=== PATIENT | female | born 1980 | race Caucasian/White ===

== ENCOUNTER 2016-11-23 03:12 | Inpatient (IN) | payer OTHER ==
[~2016-11-23] VITALS: Ht 167.6 cm; Wt 129.1 kg
[~2016-11-23 03:12] MED LIST: OSLT75C PO
[2016-11-23] MEDS ORDERED: KETOROLAC 30 MG INJ IV STA (03:55)
--- NOTE | 2016-11-23 04:36 | ERD ---
ER Documentation Chief Complaint Date/Time DATE: 11/23/16 TIME: 04:34 Chief Complaint r eye lid swelling HPI 35-year-old presents here in emergency department for complaints of right upper eyelid redness and swelling started today. Started as a small pimple on the upper eyelid, it became more red and swollen, patient states she has had a pimple longtime ago, today just became more red and swollen, patient's complaining of pain on affected area, throbbing pain, secretions, is worse upon touching the area. Patient did not take any medications to help with symptoms. Patient denies any vision changes. Patient denies any trauma in the eye. ROS All systems reviewed and are negative except as per history of present illness. Medications Home Meds Active Scripts Ibuprofen* (Motrin*) 600 Mg Tab, 600 MG PO Q6H Y for PAIN AND OR ELEVATED TEMP, #30 TAB Prov:SESAR RICHARDSON NP 11/23/16 Erythromycin* (Erythromycin* Ophthalmic) 1 Applic Oint, 1 APPLIC RIGHT EYE QID for 7 Days Prov:SESAR RICHARDSON NP 11/23/16 Doxycycline Hyclate* (Doxycycline Hyclate*) 100 Mg Tablet.dr, 100 MG PO BID for 10 Days, TAB Prov:SESAR RICHARDSON NP 11/23/16 Hydrocodone/Acetaminophen ([place] 5-325 Tablet) 1 Each Tablet, 1 TAB PO Q6H Y for SEVERE PAIN LEVEL 7-10, #20 TAB Prov:SESAR RICHARDSON NP 11/23/16 Oseltamivir Phosphate* (Tamiflu*) 75 Mg Capsule, 75 MG PO BID for 5 Days, CAP Prov:YASMEEN WHITTAKER MD 11/24/15 Allergies Allergies: Coded Allergies: No Known Allergy (Unverified , 11/24/15) PMhx/Soc Medical and Surgical Hx: pt denies Medical Hx, pt denies Surgical Hx Hx Alcohol Use: No Hx Substance Use: No Hx Tobacco Use: No FmHx Family History: No coronary disease, No diabetes, No other Physical Exam Vitals Vital Signs Date Time Temp Pulse Resp B/P Pulse Ox O2 Delivery O2 Flow Rate FiO2 11/23/16 03:15 98.9 78 18 149/96 96 Physical Exam GENERAL: The patient is well developed and appropriate for usual state of health, in no apparent distress. HEENT: Atraumatic. Bilateral eyes are PERRL EOM intact. Right upper eyelid noted to be erythematous and swollen, tenderness on palpation noted. Patient's redness and swelling of the right upper eyelid extends upper eyelid area. Ears: Normal tympanic membrane, no erythema or bulging. No ear canal swelling. No ear discharge. Nose: normal nasal turbinates, no erythema or swelling. Normal nasal discharge. Throat: oropharynx clear. No tonsillar swelling or tonsillar exudates. No lymphadenopathy. CHEST: Clear to auscultation bilaterally. There are no rales, wheezes or rhonchi. HEART: Regular rate and rhythm. No murmurs, clicks, rubs or gallops. No S3 or S4. ABDOMEN: Soft, nontender and nondistended. Good bowel sounds. No rebound or guarding. No gross peritonitis. No gross organomegaly or masses. No Neal sign or McBurney point tenderness. BACK: No midline or flank tenderness. EXTREMITIES: Equal pulses bilaterally. There is no peripheral clubbing, cyanosis or edema. No focal swelling or erythema. Full range of motion. Grossly neurovascularly intact. NEURO: Alert and oriented. Cranial nerves 2-12 intact. Motor strength in all 4 extremities with 5/5 strength. Sensation grossly intact. Normal speech and gait. SKIN: There is no apparent rash or petechia. The skin is warm and dry. HEMATOLOGIC AND LYMPHATIC: There is no evidence of excessive bruising or lymphedema. No gross cervical, axillary, or inguinal lymphadenopathy. Result Diagram: 11/23/16 0502 Results 24 hrs Laboratory Tests Test 11/23/16 05:02 Anion Gap 16 Blood Urea Nitrogen 10mg/dl Calcium Level 9.0mg/dl Carbon Dioxide Level 25mmol/L Chloride Level 105mmol/L Creatinine 0.54mg/dl Glucose Level 97mg/dl Potassium Level 3.8mmol/L Sodium Level 142mmol/L Current Medications Medications (Trade) Dose Ordered Sig/Octavio Route PRN Reason Start Time Stop Time Status Last Admin Dose Admin Ketorolac Tromethamine 30 mg 30 mg ONCE STAT IV 11/23/16 03:55 11/23/16 03:56 DC 11/23/16 04:56 Sodium Chloride (NS) 100 ml @ [facility] ONCE .ROUTE 2/14/17 05:45 11/23/16 05:46 DC Iohexol (Omnipaque 300mg/ ml) 150 ml [facility] ONCE .ROUTE 11/23/16 05:46 11/23/16 05:47 DC Patient was given medication for pain here in emergency department, after treatment, patient verbalized feeling much better. Patient's pain is improved. Procedures/MDM Medical decision making: Patient's symptoms most likely consistent with right upper eyelid blepharitis, pending CT scan of the orbits at this time to rule periorbital abscess, orbital cellulits. Will sign out to Cassy Moscoso NP. Rx: Doxycycline, Erythromycin, Ibuprofen and [place] for D/c if negative Ct scan. SESAR RICHARDSON NP Nov 23, 2016 04:36
[2016-11-23 05:33] LABS: POTASSIUM 3.8 mmol/L (3.5-5.1)
[2016-11-23 05:36] LABS: CREATININE 0.54 mg/dl (0.44-1.00)
[2016-11-23] MEDS ORDERED: IBUP-1542 PO (05:36)
[2016-11-23] MEDS ORDERED: DOXY100T20 PO (05:36)
[2016-11-23] MEDS ORDERED: HYDR-906 PO (05:36)
[2016-11-23] MEDS ORDERED: ERYTOPOI RIGHT EYE (05:36)
[2016-11-23] MEDS ORDERED: SOD CHLORIDE 0.9% 100 ML ONE (05:45)
[2016-11-23] MEDS ORDERED: IOHEXOL 300MG/ML 150 ML BTL ONE (05:46)
--- NOTE | 2016-11-23 06:30 | RADRPT ---
PROCEDURE: CT orbits with contrast CLINICAL INDICATION: right eyelid swelling, rule out orbital cellulitis, TECHNIQUE: Spiral CT images through the orbits after administration of 1 and ccs of Omnipaque-300 intravenous contrast. Multiplanar reconstructions. The CTDIvol is 53.43 mGy and the DLP is a 774.8 7 mGy-cm. One or more of the following dose reduction techniques were used: automated exposure cont rol, adjustment of the mA and/or kV according to patient size, or use of iterative reconstruction te chnique. COMPARISON: None. FINDINGS: There is right periorbital soft tissue swelling. This is more focal medially where a tiny rim enhan cing fluid collection is seen adjacent to the medial sclera which measures 4 x 5 mm. No other focal fluid collection is seen. The inflammatory change involves the distal aspect of the medial rectus muscle and extends medially to the lamina papyracea. No retro-orbital cellulitis is seen. The glob es appear intact. The optic nerves and extraocular musculature is otherwise unremarkable. Calcific ations of the left tonsil are seen. The visualized intracranial structures are unremarkable. No todd ny erosive change is seen. There is minimal mucoperiosteal thickening of the maxillary sinuses. Th e paranasal sinuses and mastoids are otherwise clear. IMPRESSION: Right orbital cellulitis with tiny focal abscess along the medial aspect of the sclera. Inflammator y change extends medially to the lamina papyracea. RPTAT: HLBE Physician Philippe Date Time Electronically viewed and signed by Evangelina Arriola Physician on 11/23/2016 06:30 LE/
[2016-11-23] MEDS ORDERED: PIPER-TAZO 3.375 GM IV (PMX) 100 ML IVPB STA (06:41)
[2016-11-23] MEDS ORDERED: VANCOMYCIN 1 GM (PMX) 250 ML IVPB ONE (07:00)
[2016-11-23 07:54] LABS: BASOPHIL # 0.1 10^3/ul (0.0-0.1); BASOPHILS % 0.6 % (0.0-2.0); EOSINOPHILS # 0.2 10^3/ul (0.0-0.5); EOSINOPHILS % 1.4 % (0.0-7.0); HEMATOCRIT 40.3 % (37.0-47.0); LYMPHOCYTES # 3.1 10^3/ul (0.8-2.9); LYMPHOCYTES % 26.5 % (15.0-51.0); MEAN CORPUSCULAR HEMOGLOBIN 30.2 pg (29.0-33.0); MEAN CORPUSCULAR HGB CONC 34.8 g/dl (32.0-37.0); MEAN CORPUSCULAR VOLUME 86.7 fl (82.0-101.0); MEAN PLATELET VOLUME 8.4 fl (7.4-10.4); MONOCYTE # 0.9 10^3/ul (0.3-0.9); MONOCYTES % 7.6 % (0.0-11.0); NEUTROPHIL # 7.4 10^3/ul (1.6-7.5); NEUTROPHILS % 63.9 % (39.0-77.0); PLATELET COUNT 266 10^3/UL (140-440); RED BLOOD COUNT 4.65 10^6/ul (4.20-5.40); RED CELL DISTRIBUTION WIDTH 13.6 % (11.5-14.5); UNCORRECTED WBC 11.5 10^3/ul (4.8-10.8); WHITE BLOOD COUNT 11.5 10^3/ul (4.8-10.8)
[2016-11-23 07:56] LABS: CONDITION 1; INR 1.05; PROTIME 13.7 Sec (12.2-14.2); PT RATIO 1.1
[2016-11-23 07:57] LABS: PARTIAL THROMBOPLASTIN TIME 29.7 Sec (25.0-35.0)
[2016-11-23 08:00] VITALS: TEMP 98
--- NOTE | 2016-11-23 08:22 | QN ---
Documentation Comment I have seen and evaluated the patient along with the PA and/or UNDER CUTTER provider. I agree with the evaluation and plan of care. Please see their documentation for full ER course and evaluation. In short: The patient was endorsed to me from the PA given a CT finding that is concerning for orbital cellulitis with abscess. The patient describes several days of a stye on her eye. Over the past 24 hours she has had significant pain and swelling to the upper eyelid. The patient denies any vision changes, no pain with extraocular movements. On exam the patient has significant swelling of the upper eyelid with focal tenderness along the periorbital rim. The patient has mild consensual photophobia but no afferent pupillary defect. She has full active range of motion of the extraocular muscles of the right eye. She has no proptosis. CT FINDINGS: There is right periorbital soft tissue swelling. This is more focal medially where a tiny rim enhancing fluid collection is seen adjacent to the medial sclera which measures 4 x 5 mm. No other focal fluid collection is seen. The inflammatory change involves the distal aspect of the medial rectus muscle and extends medially to the lamina papyracea. No retro-orbital cellulitis is seen. The globes appear intact. The optic nerves and extraocular musculature is otherwise unremarkable. Calcifications of the left tonsil are seen. The visualized intracranial structures are unremarkable. No bony erosive change is seen. There is minimal mucoperiosteal thickening of the maxillary sinuses. The paranasal sinuses and mastoids are otherwise clear. IMPRESSION: Right orbital cellulitis with tiny focal abscess along the medial aspect of the sclera. Inflammatory change extends medially to the lamina papyracea. RPTAT: HLBE I was able speak to Dr. Ovalles, research nurse. He states that since the abscess is located and isolated to the orbit this is more of an ophthalmologic process. I do not have an senior software engineer on staff. For this reason the patient will require transfer. I am not sure that the patient necessarily requires emergent surgery however given focal abscess she at least needs an ophthalmology consult and needs to be at a facility that can perform drainage if needed. Blood cultures have been taken and the patient was given broad-spectrum antibiotics to cover staph and strep. The patient was given vancomycin and Zosyn. She continues to be well-appearing and her pain is well controlled. Awaiting transfer at this time. MAC has been called. Diagnostic impression: Right orbital cellulitis Right orbital abscess IRON BORJAS MD Nov 23, 2016 08:21
[2016-11-23] MEDS ORDERED: ONDANSETRON 4 MG INJ IV PRN ×2 (11:30→12:00)
[2016-11-23] MEDS ORDERED: ACETAMINOPHEN 325 MG TAB PO PRN (11:30)
[2016-11-23] MEDS ORDERED: VANCOMYCIN IV PER PHARMACY XX SCH (12:00)
[2016-11-23] MEDS ORDERED: NACL 0.9% 3 ML SYG IV SCH (12:00)
[2016-11-23] MEDS ORDERED: ACETAMINOPHEN 650 MG SUPP PR PRN (12:00)
[2016-11-23] MEDS ORDERED: DOCUSATE SODIUM 100 MG CAP PO PRN (12:00)
[2016-11-23] MEDS ORDERED: BISACODYL 10 MG SUPP PR PRN (12:00)
[2016-11-23] MEDS ORDERED: HYDROCODONE/APAP (5/325) TAB PO PRN (12:00)
[2016-11-23] MEDS ORDERED: MAGNESIUM HYDROXIDE 30ML CUP PO PRN (12:00)
[2016-11-23] MEDS: morphine 2 MG INJ IV PRN ×2 (12:26→20:42)
[2016-11-23] MEDS: PIPER-TAZO 3.375 GM IV (PMX) 100 ML IVPB SCH ×2 (12:44→18:31)
[2016-11-23] MEDS ORDERED: VANCOMYCIN 1 GM in NS 250 ML IVPB SCH (13:30)
[2016-11-23] MEDS: VANCOMYCIN 1.5 GM in SOD CHLORIDE 0.9% 250 ML IVPB SCH ×2 (13:42→21:45)
--- NOTE | 2016-11-23 14:29 | CONS ---
DATE OF ADMISSION: 11/23/2016 DATE OF CONSULTATION: 11/23/2016 INFECTIOUS DISEASE CONSULTATION REASON FOR CONSULTATION: Antibiotic management. HISTORY OF PRESENT ILLNESS: Michelle Sykes is a 35-year-old female who presents to the emergency room with complaints of right upper lid redness and swelling starting today. It started as a small pimpl e on the upper eyelid. It became more red and swollen, and for that reason she came in the emergenc y room. Initially she was given erythromycin and doxycycline by the emergency room, and then it was felt that she should be admitted. PAST MEDICAL HISTORY: Operations as outlined. FAMILY HISTORY: Noncontributory. SOCIAL HISTORY: She does not smoke, drink, or abuse drugs. ALLERGIES: NONE TO PENICILLIN, SULFA, OR FOODS. MEDICATIONS: Per chart. REVIEW OF SYSTEMS: As per HPI. PHYSICAL EXAMINATION: GENERAL: The patient is a well-developed, well-nourished female, alert, responsive, in no acute dis tress. VITAL SIGNS: Stable. She is afebrile. SKIN: Without generalized rash. HEENT: Head normocephalic. Eyes: Pupils are equal, round, reactive to light. Her right upper eye lid is erythematous and swollen, tender to palpation, it extends above the upper lid. ENT within no rmal limits. NECK: Supple. LYMPH NODES: None palpable. CHEST: Decreased breath sounds at the bases. HEART: Without murmur or gallop. ABDOMEN: Soft, nontender, without organosplenomegaly or masses. EXTREMITIES: Without cyanosis, clubbing, or edema. RECTAL AND GENITAL: Deferred. NEUROLOGIC: No focal neurological abnormalities. IMPRESSION AND PLAN: The patient's symptoms are most likely consistent with right upper eyelid blep haritis. CT scan of the orbits were done to rule out periorbital abscess and orbital cellulitis. T he CT scan shows right orbital cellulitis without any focal abscess along the medial aspect of the s clera. Inflammatory changes extend medially to lamina papyracea. The patient was therefore admitte d. Dr. Weston, the principal java developer, was contacted. He felt that surgery was not indicated, but t hat broad-spectrum antibiotics seemed to be. Dr. Ovalles, the ear, nose, and throat specialist, was also contacted. The patient was started on vancomycin and Zosyn. We will continue her on this iván men and await ophthalmology's evaluation. Dictated By: JAMAR RAZO MD, JD/ELIAS Conf#: [id number] DID#: [id number]
[2016-11-23 15:34] VITALS: BP 137/80; RESP 20
[2016-11-23 16:00] VITALS: Ht 167.6 cm; Wt 129.1 kg
--- NOTE | 2016-11-23 16:37 | HP ---
Date/Time of Note Date/Time of Note DATE: 11/23/16 TIME: 16:30 Assessment/Plan VTE Prophylaxis VTE Prophylaxis Intervention: SCD's Lines/Catheters IV [facility] [place] Assessment/Plan Chief Complaint/Hosp Course Assessment and plan 1. Right upper eyelid blepharitis/abscess. Cellulitis and abscess evident on CT scan of right orbital area. Patient placed on vancomycin and Zosyn. ID consulted. Await ophthalmology recommendations. No tentative plan for ophthalmological surgical intervention at this time. We'll await valuation 2. Leukocytosis secondary to #1. Afebrile at present. Continue on antibiotics DVT prophylaxis: Early in duration and SCDs Admission process time is 40 minutes Discussed plan of care with Dr. Quintanilla Problems: HPI/ROS Admit Date/Time Admit Date/Time Nov 23, 2016 at 11:02 Hx of Present Illness This is a 35 units female with no past reported medical history who came to [facility] due to reports of right eye swelling and erythema and pain. Patient did report that onset of symptoms happened on 11/22/2016 roughly around 9 PM. She states that she was in her normal state of health and had GI that she suspects may have been activity to allergy. She did scratch her eye. Around 2 in the morning she did report more swelling on the right eye. She states that she had some whitish drainage. She denied any fevers or chest pain or nausea vomiting or shortness of breath. She did come to [facility] the aforementioned issues. Upon further examination she did have CT orbits with contrast. It did show her to have a right orbital cellulitis with tiny focal abscess along the medial aspect of the sclera. Inflammatory change extended medially to the lamina papyracea. ER did get consultation with ophthalmology: Dr. Weston. Patient also noted with some white count at 11.5. She denies any visual disturbances. We will After mention issues. ROS 12 point review of systems obtain an entirely negative except that mentioned in history present illness PMH/Family/Social Past Medical History Medical History: no pertinent history Past Surgical History Past Surgical Hx: no surgical history Family History Significant Family History: no pertinent family hx Social History Alcohol Use: none Smoking Status: Never smoker Drug Use: none Exam/Review of Systems Vital Signs Vitals Vital Signs Date Time Temp Pulse Resp B/P Pulse Ox O2 Delivery O2 Flow Rate FiO2 11/23/16 15:34 98.4 75 20 137/80 98 11/23/16 10:00 Room Air Exam Exam General: No acute signs or symptoms of distress Eyes: Swelling over right eye erythema. Neck: Supple nontender, no JVD Cardiac: S1, S2 auscultated, regular rhythm and rate Pulmonary: No coarse rhonchi or breathing auscultated GI: Abdomen soft nontender nondistended, bowel sounds active Extremities: No edema bilateral lower extremities Skin: Clean dry and intact Neurologic: Alert to person place and time and situation Labs Result Diagram: 11/23/16 0720 11/23/16 0502 Medications Medications Current Medications Ondansetron HCl (Zofran Inj) 4 mg Q6H PRN IV NAUSEA AND/OR VOMITING; Start at 12:00 Acetaminophen (Tylenol Tab) 650 mg Q6H PRN PO PAIN LEVEL 1-3 OR FEVER; Start at 12:00 Acetaminophen (Tylenol Supp) 650 mg Q6H PRN IN PAIN LEVEL 1-3 OR FEVER; Start 11/23/16 at 12:00 Acetaminophen/ Hydrocodone Bitart ([place] (5/325)) 1 tab Q6H PRN PO MODERATE PAIN LEVEL 4-6; Start 11/23/16 at 12:00 Acetaminophen/ Hydrocodone Bitart ([place] (5/325)) 2 tab Q6H PRN PO SEVERE PAIN LEVEL 7-10; Start 11/23/16 at 12:00 Morphine Sulfate (morphine) 2 mg Q4H PRN IV SEVERE PAIN LEVEL 7-10 Last administered on 11/23/16 12:26; Admin Dose 2 MG; Start 11/23/16 at 12:00 Docusate Sodium (Colace) 100 mg Q12H PRN PO CONSTIPATION; Start 11/23/16 at 12: 00 Magnesium Hydroxide (Milk Of Mag) 30 ml DAILY PRN PO CONSTIPATION; Start at 12:00 Bisacodyl (Dulcolax Supp) 10 mg DAILY PRN IN CONSTIPATION; Start 11/23/16 at 12 :00 Famotidine 20 mg 20 mg Q12 IV ; Start 11/23/16 at 21:00 Piperacillin Sod/ Tazobactam Sod 100 ml @ 200 mls/hr Q6 IVPB Last administered on 11/23/16 12:44; Admin Dose 200 MLS/HR; Start 11/23/16 at 13:00 Vancomycin HCl/ Sodium Chloride (Vancocin/NS) 250 ml @ 83.333 mls/ hr Q8H IVPB Last administered on 11/23/16 13:42; Admin Dose 83.333 MLS/HR; Start at 13:30 Miscellaneous Information (*Rx Drug Level Order Reminder*) VANCO TROUGH @ 1, 230 ON... ONCE ONCE XX ; Start 11/24/16 at 12:30; Stop 11/24/16 at 12:31 MEHRAN GARCIA Nov 23, 2016 16:37
[2016-11-23 19:18] VITALS: BP 149/92; RESP 20
[2016-11-23] MEDS: FAMOTIDINE 20 MG INJ IV SCH (20:41)
[2016-11-24] MEDS: PIPER-TAZO 3.375 GM IV (PMX) 100 ML IVPB SCH ×4 (01:05→19:25)
[2016-11-24] MEDS: morphine 2 MG INJ IV PRN ×2 (05:34→12:58)
[2016-11-24 05:50] LABS: ALBUMIN 3.8 g/dl (3.3-4.9)
[2016-11-24 05:51] LABS: POTASSIUM 3.5 mmol/L (3.5-5.1)
[2016-11-24 05:52] LABS: CREATININE 0.74 mg/dl (0.44-1.00)
[2016-11-24 05:53] LABS: ALBUMIN/GLOBULIN RATIO 1.11; BILIRUBIN,INDIRECT 0.4 mg/dl (0-1.1); BILIRUBIN,TOTAL 0.4 mg/dl (0.2-1.3); TOTAL PROTEIN 7.2 g/dl (6.1-8.1)
[2016-11-24 05:54] LABS: CALCIUM 8.7 mg/dl (8.4-10.2); CHOL/HDL RATIO 5.3 RATIO; PHOSPHORUS 3.7 mg/dl (2.5-4.9)
[2016-11-24] MEDS: VANCOMYCIN 1.5 GM in SOD CHLORIDE 0.9% 250 ML IVPB SCH (06:07)
[2016-11-24 06:10] LABS: T3 UPTAKE 32.1 % (23.5-40.5)
[2016-11-24 06:24] LABS: THYROID STIMULATING HORMONE 8.19 MIU/L (0.465-4.680)
[2016-11-24 07:52] VITALS: BP 128/94; RESP 18
[2016-11-24] MEDS: ACETAMINOPHEN 325 MG TAB PO PRN (08:35)
[2016-11-24] MEDS: FAMOTIDINE 20 MG INJ IV SCH ×2 (08:35→20:30)
[2016-11-24] MEDS ORDERED: INFLUENZA VIRUS VACCINE 0.5 ML (DISPENSING) IM* ONE (09:00)
[2016-11-24 10:20] LABS: BASOPHIL # 0.1 10^3/ul (0.0-0.1); BASOPHILS % 0.5 % (0.0-2.0); CONDITION 1; EOSINOPHILS # 0.2 10^3/ul (0.0-0.5); EOSINOPHILS % 1.8 % (0.0-7.0); HEMATOCRIT 40.3 % (37.0-47.0); HEMOGLOBIN 13.8 g/dl (12.0-16.0); LYMPHOCYTES # 3.5 10^3/ul (0.8-2.9); LYMPHOCYTES % 30.8 % (15.0-51.0); MEAN CORPUSCULAR HEMOGLOBIN 30.2 pg (29.0-33.0); MEAN CORPUSCULAR HGB CONC 34.2 g/dl (32.0-37.0); MEAN CORPUSCULAR VOLUME 88.2 fl (82.0-101.0); MEAN PLATELET VOLUME 8.8 fl (7.4-10.4); MONOCYTE # 1.1 10^3/ul (0.3-0.9); MONOCYTES % 9.3 % (0.0-11.0); NEUTROPHIL # 6.6 10^3/ul (1.6-7.5); NEUTROPHILS % 57.6 % (39.0-77.0); PLATELET COUNT 258 10^3/UL (140-440); RED BLOOD COUNT 4.57 10^6/ul (4.20-5.40); RED CELL DISTRIBUTION WIDTH 13.7 % (11.5-14.5); UNCORRECTED WBC 11.4 10^3/ul (4.8-10.8); WHITE BLOOD COUNT 11.4 10^3/ul (4.8-10.8)
--- NOTE | 2016-11-24 13:02 | PN ---
DATE: 11/24/2016 SUBJECTIVE: Patient is alert, feels better, looks comfortable. Afebrile. Right eye swelling decre asing. WBC today 11.4, no shift, no bands. BUN 10, creatinine 0.74. MICROBIOLOGY: Blood cultures pending. ANTIMICROBIALS: The patient is on: 1. Vancomycin. 2. Zosyn. PHYSICAL EXAMINATION: GENERAL: Morbidly obese, middle-aged woman who is alert, in no distress. HEENT: Head atraumatic, normocephalic. Sclerae anicteric. The patient has right upper eyelid swel ling that is tracing down. Buccal mucosa pink. NECK: Supple. CHEST: Rise symmetrical. Breath sounds clear. HEART: S1, S2. ABDOMEN: Soft, bowel sounds present. EXTREMITIES: Without cyanosis. ASSESSMENT 1. Right upper eyelid and periorbital cellulitis, no evidence of focal abscess per CT. 2. Systemic inflammatory response syndrome. PLAN: The patient remains stable. Continue present care. Follow ophthalmology recommendations. A wait for clinical improvement. Dictated By: JOSE HAYES STOCK TRACER for JAMAR HOPKINS/ELIAS Conf#: [id number] DID#: [id number]
[2016-11-24] MEDS: VANCOMYCIN 1 GM in NS 250 ML IVPB SCH ×2 (15:07→22:24)
[2016-11-24 19:34] VITALS: BP 134/90; RESP 14
[2016-11-24] MEDS: HYDROCODONE/APAP (5/325) TAB PO PRN (22:25)
[2016-11-25] MEDS: PIPER-TAZO 3.375 GM IV (PMX) 100 ML IVPB SCH ×4 (00:31→18:31)
[2016-11-25] MEDS: HYDROCODONE/APAP (5/325) TAB PO PRN (05:09)
[2016-11-25] MEDS: VANCOMYCIN 1 GM in NS 250 ML IVPB SCH ×2 (06:03→15:37)
[2016-11-25 07:50] VITALS: BP 130/93; RESP 18
[2016-11-25 08:31] LABS: BASOPHIL # 0.1 10^3/ul (0.0-0.1); BASOPHILS % 0.5 % (0.0-2.0); EOSINOPHILS # 0.2 10^3/ul (0.0-0.5); EOSINOPHILS % 1.9 % (0.0-7.0); HEMATOCRIT 40.3 % (37.0-47.0); LYMPHOCYTES # 2.2 10^3/ul (0.8-2.9); LYMPHOCYTES % 22.2 % (15.0-51.0); MEAN CORPUSCULAR HEMOGLOBIN 30.4 pg (29.0-33.0); MEAN CORPUSCULAR HGB CONC 34.8 g/dl (32.0-37.0); MEAN CORPUSCULAR VOLUME 87.5 fl (82.0-101.0); MEAN PLATELET VOLUME 8.5 fl (7.4-10.4); MONOCYTES % 9.8 % (0.0-11.0); NEUTROPHIL # 6.4 10^3/ul (1.6-7.5); NEUTROPHILS % 65.6 % (39.0-77.0); PLATELET COUNT 252 10^3/UL (140-440); RED BLOOD COUNT 4.61 10^6/ul (4.20-5.40); RED CELL DISTRIBUTION WIDTH 13.7 % (11.5-14.5); UNCORRECTED WBC 9.8 10^3/ul (4.8-10.8); WHITE BLOOD COUNT 9.8 10^3/ul (4.8-10.8)
[2016-11-25 08:34] LABS: CONDITION 1
[2016-11-25 08:46] LABS: POTASSIUM 3.4 mmol/L (3.5-5.1)
[2016-11-25 08:49] LABS: CREATININE 0.93 mg/dl (0.44-1.00)
[2016-11-25] MEDS ORDERED: FAMOTIDINE 20 MG TAB PO SCH (09:00)
--- NOTE | 2016-11-25 13:14 | CONS ---
DATE OF ADMISSION: 11/23/2016 DATE OF CONSULTATION: 11/25/2016 OPHTHALMOLOGY CONSULTATION REFERRING PHYSICIAN: Levy Lovell MD HISTORY OF PRESENT ILLNESS: Thank you for asking me to see this 35-year-old female patient who was admitted through the emergency department with a blepharitis of the right upper lid with secondary c ellulitis noted on CT scan to be behind the orbital septum. The patient was admitted and started on intravenous vancomycin and Zosyn and has been improving over the last 2 to 3 days. The patient den ies any sensation of ocular pain or photophobia. The patient also denies any prior history of eye d isease or injury. The patient does state that she recalls rubbing her eyelid after swelling began o n 11/22/2016, and in the emergency department when attempting to wipe the eye, she noted some blood emanating from the skin of the right upper eyelid. PHYSICAL EXAMINATION: The visual acuity without correction is 20/40 in each eye. The extraocular m ovement is full. The pupils are noted to be 3 mm, round, and reactive to light. Confrontation visu al field testing is within normal limits. External examination reveals a localized nonerythematous lesion in the center of the right upper eyelid which appears nontender to touch. There does not margo ear to be any spread of erythema beyond the right upper lid at present. Examination of the anterior surface of the right eye does not reveal the presence of any conjunctival hyperemia or discharge. The cornea and anterior chambers appear clear. Examination of the retina is within normal limits. DIAGNOSIS: Blepharitis, right upper eyelid, with secondary orbital cellulitis, right eye. COMMENT: This patient appears not to have any ocular findings other than the localized swelling of the right upper eyelid. At the present time, a decision regarding discharge of the patient needs to be made by the infectious disease sec reporting consultant, and no local ophthalmic treatment is required at this time. Dictated By: JOSE MONTE/ELIAS Conf#: [id number] DID#: [id number]
--- NOTE | 2016-11-25 14:08 | PN ---
DATE: 11/25/2016 INFECTIOUS DISEASE PROGRESS NOTE SUBJECTIVE: No acute changes. Patient is alert, feels much better, looks better. The right eyelid swelling markedly decreased. She still has some headache but overall no fevers. W radha blood cell count today 9.8. No shift, no bands. BUN 8, creatinine 0.93. ANTIMICROBIALS: 1. Vancomycin. 2. Zosyn. PHYSICAL EXAMINATION: GENERAL: This is a morbidly obese, middle-aged woman who is alert, in no distress. HEENT: Head atraumatic, normocephalic. Sclerae anicteric. Buccal mucosa pink. NECK: Supple, trachea midline. CHEST: Rise symmetrical. Breath sounds clear. HEART: S1, S2. ABDOMEN: Soft. Bowel tones present. ASSESSMENT: 1. Right upper lip and orbital cellulitis, resolving, no evidence of abscess. 2. Status post systemic inflammatory response syndrome. 3. Morbid obesity. PLAN: The patient is doing much better, cellulitis, almost resolved. She has been seen by ophthalm ology who cleared her for discharge as there is no local ophthalmic treatment required. Would recomm end to send her home on oral Bactrim or Keflex and doxycycline until resolution of her symptoms. Dictated By: JOSE HAYES DRAWBENCH OPERATOR HELPER for JAMAR RAZO MD NI/NTS Conf#: [id number] DID#: [id number]
[2016-11-25] MEDS: ACETAMINOPHEN 325 MG TAB PO PRN (15:43)
[2016-11-25] MEDS ORDERED: DOXY100T20 PO (16:35)
[2016-11-25] MEDS ORDERED: HYDR-3498 PO (16:35)
[2016-11-25] MEDS ORDERED: SACC250C PO (16:35)
[2016-11-25] MEDS ORDERED: BACTDS PO (16:35)
--- NOTE | 2016-11-25 16:41 | PDOCDIS ---
Discharge Instructions DIAGNOSIS Discharge Diagnosis: 1. right eye blepharitis 2. obesity CONDITION Patient Condition: Stable HOME CARE INSTRUCTIONS: Diet Instructions: Reduced CalorieSpecial Diet: low chol low fat FOLLOW UP/APPOINTMENTS Appointments 1. Follow up with your primary care provider in one week MEHRAN GARCIA Nov 25, 2016 16:41
[2016-11-25 20:15] VITALS: BP 138/89; PULSE 66; RESP 18
== END 2016-11-25 20:27 | disposition home or self-care (01) | DRG 125 ==
LOC: FTE 03:12 → MS2 11:02
PROVIDERS: ADMIT Family Medicine; ATTEND Family Medicine
DX: H01.001 Unspecified blepharitis right upper eyelid (principal); Z68.42 Body mass index [BMI] 45.0-49.9, adult; H00.031 Abscess of right upper eyelid; E66.01 Morbid (severe) obesity due to excess calories
CPT/HCPCS: 36415; 70480; 80048; 80053; 80061; 80202; 83036; 83605; 83735; 84100; 84436; 84443; 84479; 85025; 85610; 85730; 87040; 90686; 93005; 96365; 96375; 96376; J1885; J2270; J2405; J2543; J3370; J7050; Q9967

== ENCOUNTER 2017-01-24 12:59 | Inpatient (IN) | payer OTHER ==
[~2017-01-24] VITALS: Ht 167.6 cm; Wt 139.0 kg
[~2017-01-24 12:59] MED LIST changes: +BACTDS PO; +DOXY100T20 PO; +HYDR-3498 PO; +IBUP-1542 PO; -OSLT75C PO; +SACC250C PO
[2017-01-24] MEDS ORDERED: morphine 4 MG/ML VIAL IV STA (15:04)
[2017-01-24] MEDS ORDERED: SOD CHLORIDE 0.9% 1,000 ML IV STA (15:04)
[2017-01-24] MEDS ORDERED: ONDANSETRON 4 MG INJ IV STA ×2 (15:04→17:18)
--- NOTE | 2017-01-24 15:30 | RADRPT ---
PROCEDURE: US Abdomen. CLINICAL INDICATION: 36-year-old female with abdominal pain. TECHNIQUE: Multiple real-time images were acquired of the patient's abdomen and retroperitoneum ut ilizing a high resolution transducer. COMPARISON: No. FINDINGS: The pancreas is obscured by bowel gas and not evaluated. The liver is echogenic and enlarged measuring 19.8 cm sagittal. No hepatic mass or intrahepatic archie iary ductal dilatation is identified. The common bile duct measures 5.5 mm. There are gallstones i n the gallbladder. The gallbladder wall is normal measuring 2.5 mm. The right kidney measures 11.5 cm in length. The spleen and left kidney are not evaluated. IMPRESSION: 1. Cholelithiasis without evidence of gallbladder wall thickening. Normal common bile duct. 2. Hepatomegaly with increased echogenicity of the liver. Increased echogenicity of the liver is no josue and most commonly as a result of fatty infiltration. Steatohepatitis, vacuolar degeneration and cirrhosis of the liver are other causes. RPTAT:AAJJ Physician Karena Date Time Electronically viewed and signed by Physician Karena on 01/24/2017 15:30 /
[2017-01-24 15:51] LABS: ADD SCAN DIFF NO
[2017-01-24 15:52] LABS: BASOPHIL # 0.1 10^3/ul (0.0-0.1); BASOPHILS % 0.4 % (0.0-2.0); EOSINOPHILS % 0.1 % (0.0-7.0); HEMATOCRIT 42.7 % (37.0-47.0); HEMOGLOBIN 14.9 g/dl (12.0-16.0); LYMPHOCYTES # 1.2 10^3/ul (0.8-2.9); LYMPHOCYTES % 9.5 % (15.0-51.0); MEAN CORPUSCULAR HEMOGLOBIN 29.9 pg (29.0-33.0); MEAN CORPUSCULAR HGB CONC 34.9 g/dl (32.0-37.0); MEAN CORPUSCULAR VOLUME 85.7 fl (82.0-101.0); MONOCYTE # 0.9 10^3/ul (0.3-0.9); MONOCYTES % 6.9 % (0.0-11.0); NEUTROPHIL # 10.3 10^3/ul (1.6-7.5); NEUTROPHILS % 82.5 % (39.0-77.0); PLATELET COUNT 300 10^3/UL (140-415); RED BLOOD COUNT 4.98 10^6/ul (4.20-5.40); RED CELL DISTRIBUTION WIDTH 13.2 % (11.5-14.5); WHITE BLOOD COUNT 12.5 10^3/ul (4.8-10.8)
[2017-01-24 16:03] LABS: ALBUMIN 4.6 g/dl (3.3-4.9); POTASSIUM 4.1 mmol/L (3.5-5.1)
[2017-01-24 16:05] LABS: ALBUMIN/GLOBULIN RATIO 1.35; BILIRUBIN,INDIRECT 0.7 mg/dl (0-1.1); BILIRUBIN,TOTAL 0.7 mg/dl (0.2-1.3); CREATININE 0.68 mg/dl (0.44-1.00)
[2017-01-24 16:06] LABS: CALCIUM 9.4 mg/dl (8.4-10.2)
[2017-01-24 16:36] LABS: ADD UMIC YES; URINE BILIRUBIN (Dip) NEGATIVE (NEGATIVE); URINE BLOOD (Dip) 3+ (NEGATIVE); URINE COLOR LT. YELLOW (YELLOW); URINE GLUCOSE (Dip) NEGATIVE (NEGATIVE); URINE KETONES (Dip) NEGATIVE (NEGATIVE); URINE LEUKOCYTE ESTERASE (Dip) 1+ (NEGATIVE); URINE NITRITE (Dip) NEGATIVE (NEGATIVE); URINE TOTAL PROTEIN (Dip) 1+ (NEGATIVE); URINE UROBILINOGEN (Dip) 0.2 E.U./dL (0.1-1.0)
--- NOTE | 2017-01-24 17:01 | ERD ---
ER Documentation Chief Complaint Date/Time DATE: 01/24/17 TIME: 16:58 Chief Complaint AP SINCE TUESDAY HPI This is a 36-year-old female that presents to the ER with epigastric pain that radiates into the right upper quadrant since Tuesday. Patient states that she has had nausea and vomiting. Vomiting is nonbilious nonbloody. Pain is sharp and severe. It is worse with movement. Patient also complains of watery diarrhea. She denies any chest pain. Patient denies any urinary frequency or dysuria. Patient states that her pain is worsening. She denies any fevers or chills. She denies any recent travel. ROS 12 point review of systems was done, all negative except per HPI. Medications Home Meds Active Scripts Hydrocodone Bit-Acetaminophen (Hydrocodone Bit-APAP) 5-325MG Tablet, 2 TAB PO Q6H Y for SEVERE PAIN LEVEL 7-10, #30 TAB Prov:MEHRAN GARCIA 11/25/16 Saccharomyces Boulardii* (Florastor*) 250 Mg Cap, 500 MG PO BID, #24 CAP Prov:MEHRAN GARCIA 11/25/16 Sulfamethoxazole-Trimethoprim* (Bactrim* DS) 800-160 Mg Tab, 1 TAB PO BID, #24 TAB Prov:MEHRAN GARCIA 11/25/16 Doxycycline Hyclate* (Doxycycline Hyclate*) 100 Mg Tablet.dr, 100 MG PO BID for 12 Days, TAB Prov:MEHRAN GARCIA 11/25/16 Ibuprofen* (Motrin*) 600 Mg Tab, 600 MG PO Q6H Y for PAIN AND OR ELEVATED TEMP, #30 TAB Prov:SESAR RICHARDSON NP 11/23/16 Allergies Allergies: Coded Allergies: No Known Allergy (Unverified , 11/23/16) PMhx/Soc Medical and Surgical Hx: pt denies Medical Hx, pt denies Surgical Hx History of Surgery: No Anesthesia Reaction: No Hx Neurological Disorder: No Hx Respiratory Disorders: No Hx Cardiac Disorders: No Hx Psychiatric Problems: No Hx Miscellaneous Medical Probl: No Hx Alcohol Use: No Hx Substance Use: No Hx Tobacco Use: No Physical Exam Vitals Vital Signs Date Time Temp Pulse Resp B/P Pulse Ox O2 Delivery O2 Flow Rate FiO2 01/24/17 13:01 98.1 95 18 155/95 99 Physical Exam GENERAL: The patient is well developed and appropriate for usual state of health , in no apparent distress. HEENT: Atraumatic. CHEST: Clear to auscultation bilaterally. There are no rales, wheezes or rhonchi. HEART: Regular rate and rhythm. No murmurs, clicks, rubs or gallops. ABDOMEN: Tender to palpation in the right upper quadrant. Good bowel sounds. No rebound or guarding. No gross peritonitis. No gross organomegaly or masses. Positive Neal sign BACK: No midline or flank tenderness. NEURO: Alert and oriented. Result Diagram: 01/24/17 1547 01/24/17 1547 Results 24 hrs Laboratory Tests Test 01/24/17 15:47 White Blood Count 12.510^3/ul Red Blood Count 4.9810^6/ul Hemoglobin 14.9g/dl Hematocrit 42.7% Mean Corpuscular Volume 85.7fl Mean Corpuscular Hemoglobin 29.9pg Mean Corpuscular Hemoglobin Concent 34.9g/dl Red Cell Distribution Width 13.2% Platelet Count 78238^3/UL Mean Platelet Volume 10.0fl Neutrophils % 82.5% Lymphocytes % 9.5% Monocytes % 6.9% Eosinophils % 0.1% Basophils % 0.4% Nucleated Red Blood Cells % 0.0/100WBC Neutrophils # 10.310^3/ul Lymphocytes # 1.210^3/ul Monocytes # 0.910^3/ul Eosinophils # 0.010^3/ul Basophils # 0.110^3/ul Nucleated Red Blood Cells # 0.010^3/ul Sodium Level 141mmol/L Potassium Level 4.1mmol/L Chloride Level 104mmol/L Carbon Dioxide Level 25mmol/L Anion Gap 16 Blood Urea Nitrogen 8mg/dl Creatinine 0.68mg/dl Glucose Level 121mg/dl Calcium Level 9.4mg/dl Total Bilirubin 0.7mg/dl Direct Bilirubin 0.00mg/dl Indirect Bilirubin 0.7mg/dl Aspartate Amino Transf (AST/SGOT) 646IU/L Alanine Aminotransferase (ALT/SGPT) 996IU/L Alkaline Phosphatase 121IU/L Total Protein 8.0g/dl Albumin 4.6g/dl Globulin 3.40g/dl Albumin/Globulin Ratio 1.35 Lipase 5666U/L Current Medications Medications (Trade) Dose Ordered Sig/Octavio Route PRN Reason Start Time Stop Time Status Last Admin Dose Admin Sodium Chloride (NS) 1,000 ml @ 1,000 mls/hr Q1H STAT IV 01/24/17 15:04 01/24/17 16:03 DC 01/24/17 15:43 Morphine Sulfate (morphine) 6 mg ONCE STAT IV 01/24/17 15:04 01/24/17 15:05 DC 01/24/17 15:44 Ondansetron HCl (Zofran Inj) 4 mg ONCE STAT IV 01/24/17 15:04 01/24/17 15:05 DC 01/24/17 15:45 Procedures/MDM This is a 36-year-old female presents to the ER with right upper quadrant pain. Patient does have gallstones on ultrasound. She also has leukocytosis, elevation in liver enzymes and elevation in her lipase. At this time patient has acute pancreatitis secondary to gallstones. She would benefit from admission. Departure Diagnosis: Primary Impression: Acute gallstone pancreatitis Condition: GUSTAVO Reid Jan 24, 2017 17:01
[2017-01-24 17:10] LABS: BACTERIA,URINE FEW; URINE RBCS >50 /HPF (0)
[2017-01-24] MEDS ORDERED: HYDROmorphONE 1 MG/ML SYG IV STA (17:18)
[2017-01-24] MEDS ORDERED: CEFTRIAXONE 1 GM/50 ML (PMX) 50 ML IVPB ONE (17:30)
[2017-01-24] MEDS ORDERED: SOD CHLORIDE 0.9% 1,000 ML IV ONE (17:30)
[2017-01-24] MEDS ORDERED: metroNIDAZOLE 500 MG/NS (PMX) 100 ML IVPB ONE (17:30)
--- NOTE | 2017-01-24 17:50 | EN ---
Date/Time of Note Date/Time of Note DATE: 01/24/17 TIME: 17:47 ER Progress Note I also saw and assessed this patient.. Right upper quadrant tenderness is still present but controlled with morphine. For me that the patient had an elevated lipase as well as gallstones. Patient also has elevated LFTs. Ultrasound does not show dilated Dr. thickened wall however there are gallstones. Patient does need to be admitted for acute cholecystitis and further evaluation. He ordered another liter of fluid as well as Rocephin Flagyl blood cultures. I spoke with Dr. Castro, cable assembler, who agrees with MRCP did have also cardio ordered. I also spoke with Dr. Winston, general surgeon. I spoke with Dr. Xiao who will be needed patient to medical surgical floor. Admission diagnoses: Acute cholecystitis, acute pancreatitis, elevated LFTs She's being admitted in stable condition. GRETTA BLOOM DO Jan 24, 2017 17:50
[2017-01-24 18:40] LABS: INR 0.98; PARTIAL THROMBOPLASTIN TIME 26.6 Sec (25.0-35.0)
[2017-01-24] MEDS ORDERED: HYDROCODONE/APAP (7.5/325) TAB PO PRN (19:30)
[2017-01-24] MEDS ORDERED: morphine 4 MG/ML VIAL IV PRN (19:30)
[2017-01-24] MEDS ORDERED: LISI10TA2 PO (19:43)
--- NOTE | 2017-01-24 20:31 | RADRPT ---
PROCEDURE: MR Abdomen and MRCP CLINICAL INDICATION: Gallstones. Pain. TECHNIQUE: Multiplanar MRI abdomen without contrast and MRCP was performed on a high field scanner. Images included Coronal and axial T2 haste, coronal and axial thin slab M.R.C.P. 3-D coronal rotati ng MIP images of the biliary tree were produced. COMPARISON: Ultrasound right upper quadrant 01/24/2017. FINDINGS: MRCP: There are multiple filling defects layering dependently within the gallbladder compatible wit h gallstones, largest single gallstone measures up to 12 mm. There gallstones within the gallbladd er neck. Gallbladder is otherwise unremarkable without wall thickening or pericholecystic fluid. T he cystic duct is normal in caliber. The common bile duct is mildly prominent measuring up to 7 mm a t the level of the pancreatic head. There is no filling defect within the common bile duct to sugge st an intraductal calculus. The pancreatic duct is normal in caliber. MRI Abdomen: The liver is normal in size with signal intensity compatible fatty infiltration. No l iver mass lesion or intrahepatic biliary dilatation is seen. Pancreatic head is slightly heterogeneo us and indistinct. There is mild peripancreatic fluid suggestive of a pancreatitis. There is mild free fluid within the abdomen. The spleen is normal in size and homogeneous in signal intensity. Th e stomach is partially collapsed but grossly unremarkable. The adrenal glands and kidneys are symm etrically normal. The aorta is of normal caliber. IMPRESSION: 1. Cholelithiasis. Otherwise unremarkable gallbladder without evidence for cholecystitis. 2. Mildly prominent distal common bile duct measures 7 mm. No intraductal calculus identified. 3. Slightly heterogeneous and indistinct pancreatic head.. Pancreatic infiltration and fluid. Fin dings consistent with acute pancreatitis. 4. Small amount of free fluid. No focal collection to suggest a phlegmon or pseudocyst. RPTAT: HMVK .Arnav Gonzalez MD, Date Time Electronically viewed and signed by .Arnav Gonzalez MD, on 01/24/2017 20:30 .K/
[2017-01-24 21:59] VITALS: TEMP 98.9
[2017-01-24] MEDS: SOD CHLORIDE 0.9% 1,000 ML IV SCH (23:23)
[2017-01-24] MEDS: DOCUSATE SODIUM 100 MG CAP PO SCH (23:23)
[2017-01-25] VITALS (16 sets, daily range): BP systolic 124–153; BP diastolic 68–87; PULSE 70–88; RESP 16–21; Ht 167.6 cm; Wt 139.0 kg
--- NOTE | 2017-01-25 00:45 | CONS ---
DATE OF ADMISSION: 01/24/2017 DATE OF CONSULTATION: 01/24/2017 TYPE OF CONSULTATION: Surgical. REFERRING PHYSICIAN: Jonatan Nelson MD CHIEF COMPLAINT: 1. Epigastric pain. 2. Pancreatitis. 3. Cholelithiasis. 4. Transaminitis. 5. Leukocytosis. 6. Obesity with BMI of 30. HISTORY OF PRESENT ILLNESS: Michelle Sykes is a 36-year-old female with multiple comorbidities who pre sents with 2-1/2 days of epigastric pain associated with nausea and vomiting, but no fevers or chill s. No chest pain, no shortness of breath. No visual or neurologic changes. No dysuria or vaginal discharge. She is having diarrhea. No previous similar episodes. The pain radiates to the right s daniel. No skin, urine or stool color change. In the emergency room, she is found to be afebrile with stable vitals. Blood work shows mild leukoc ytosis with left shift, transaminitis 600 and 900 respectively and lipase of 5666. Coags are juan pablo l. Urine is positive with leukocyte esterase; however, negative nitrites. The patient had an abdom inal ultrasound that identified cholelithiasis without gallbladder wall thickening. Common bile syed t was noted to be normal. She has hepatomegaly with increased echogenicity suggestive of fatty infi ltration/steatosis. The patient also had an MRCP that identified cholelithiasis without cholecystit is. There is prominent distal common bile duct at 7 mm; however, no intraductal calculus is identif ied. There is pancreatic infiltration and fluid suggestive of pancreatitis and a small amount of fr ee fluid, but nothing to suggest phlegmon or pseudocyst at this point. The patient is admitted and surgical consult obtained for further evaluation and treatment. PAST MEDICAL HISTORY: 1. Obesity with BMI of 30 2. Cholelithiasis. 3. Acute pancreatitis. 4. Acute transaminitis. 5. Dilated common bile duct with possible choledocholithiasis. 6. Fatty liver. 7. Positive UA with possible UTI. 8. Hypertension. PAST SURGICAL HISTORY: Denies. MEDICATIONS: Denies. ALLERGIES: DENIES. SOCIAL HISTORY: Denies alcohol, drugs or tobacco. FAMILY HISTORY: 1. Father with hypertension and cardiac disease. 2. Mother with metabolic disease. REVIEW OF SYSTEMS: A 12-point review of systems is negative unless addressed in the HPI. PHYSICAL EXAMINATION: VITAL SIGNS: Temperature 98.1, pulse 95, blood pressure 115/95, saturating 99%. GENERAL: Uncomfortable, obese, but no acute distress. HEENT: Pupils equal, reactive. No scleral icterus. Mucous membranes are moist. NECK: Supple, no JVD. PULMONARY: Normal respiratory effort. No wheezing. CARDIAC: S1, S2 present. ABDOMEN: Soft, tender in the epigastric region. No rebound, no guarding, not rigid. Negative Murp hy's. EXTREMITIES: No edema. VASCULAR: Cap refill less than 2 seconds. NEUROLOGIC: Alert, oriented, moves all 4 extremities grossly. LABORATORY AND RADIOGRAPHIC: As per chart and HPI. ASSESSMENT AND PLAN: Michelle Sykes is a 36-year-old female with multiple comorbidities. 1. Abdominal pain with laboratory findings including ultrasound and MRCP are suggestive of acute pa ncreatitis, probably secondary to gallstones. There is no evidence of cholecystitis. There is prob able choledocholithiasis, even though MRCP does not suggest it. However, based on my surgical exper ience MRCP has not been very accurate at our facility to rule out choledocholithiasis. Encourage a GI consultation to proceed with ERCP. The patient will benefit from a ventral cholecystectomy after her pancreatitis has cooled off. Continue n.p.o. and judicious fluid management. 2. BMI of 30 with obesity. Patient is highly encouraged to optimize her nutrition and exercise to improve her overall health status. 3. Hypertension. The patient is encouraged to optimize nutrition and medication and weight loss. 4. Fatty liver as above. 5. Transaminitis secondary to possible passed stone or choledocholithiasis. Once again, encourage GI to proceed with ERCP. 6. Positive urinalysis with possible urinary tract infection. I recommend antibiotics per medical team. Thank you very much for consulting me in this patient's care. Dictated By: ANA PAULA GAUTHIER/ELIAS Conf#: [id number] DID#: [id number]
[2017-01-25] MEDS: SOD CHLORIDE 0.9% 1,000 ML IV SCH ×5 (02:17→20:33)
--- NOTE | 2017-01-25 02:19 | HP ---
Date/Time of Note Date/Time of Note DATE: 01/25/17 TIME: 02:17 HPI/ROS Admit Date/Time Admit Date/Time Hx of Present Illness Acute Pancreatitis - patient was accepted by Dr. Kowalski yesterday afternoon. She has already been consulted on by Dr. Winston, and he feels her Pancreatitis is due to gallstones and that she should have an ERCP with Dr. Castro. I am not aware that Dr. Castro has been notified, so I will text him in the morning. PMH/Family/Social Past Surgical History Past Surgical Hx: no surgical history Exam/Review of Systems Vital Signs Vitals Vital Signs Date Time Temp Pulse Resp B/P Pulse Ox O2 Delivery O2 Flow Rate FiO2 01/24/17 21:59 98.9 90 18 142/90 99 Labs Result Diagram: 01/24/17 1547 01/24/17 1547 Medications Medications Current Medications Pantoprazole 40 mg 40 mg DAILY@06 IV ; Start 01/25/17 at 06:00 Sodium Chloride (NS) 1,000 ml @ 125 mls/hr Q8H IV Last administered on 23:23; Admin Dose 125 MLS/HR; Start 01/24/17 at 19:30 Morphine Sulfate (morphine) 3 mg Q4H PRN IV pain Last administered on 23:04; Admin Dose 3 MG; Start 01/24/17 at 19:30 Ondansetron HCl (Zofran Inj) 4 mg Q6H PRN IV NAUSEA AND/OR VOMITING; Start at 19:30 Docusate Sodium (Colace) 100 mg BID PO Last administered on 01/24/17 23:23; Admin Dose 100 MG; Start 01/24/17 at 21:00 Acetaminophen/ Hydrocodone Bitart (Needles (7.5-325)) 1 tab Q6H PRN PO breakthrough pain; Start 01/24/17 at 19:30 Enoxaparin Sodium (Lovenox) 40 mg DAILY SC ; Start 01/25/17 at 09:00 KAVITA HOBBS DO Jan 25, 2017 02:19
[2017-01-25] MEDS ORDERED: METOCLOPRAMIDE 10 MG INJ IV PRN (02:30)
[2017-01-25] MEDS ORDERED: NACL 0.9% 3 ML SYG IV SCH ×3 (02:30)
[2017-01-25] MEDS: morphine 2 MG INJ IV PRN ×4 (03:11→22:29)
[2017-01-25] MEDS: ONDANSETRON 4 MG INJ IV PRN ×2 (03:11→13:04)
[2017-01-25] MEDS: PANTOPRAZOLE 40 MG INJ IV SCH (06:05)
[2017-01-25 07:37] LABS: ADD SCAN DIFF NO
[2017-01-25 07:42] LABS: BASOPHILS % 0.4 % (0.0-2.0); EOSINOPHILS # 0.1 10^3/ul (0.0-0.5); HEMATOCRIT 37.9 % (37.0-47.0); HEMOGLOBIN 12.6 g/dl (12.0-16.0); LYMPHOCYTES # 2.3 10^3/ul (0.8-2.9); LYMPHOCYTES % 21.7 % (15.0-51.0); MEAN CORPUSCULAR HGB CONC 33.2 g/dl (32.0-37.0); MEAN CORPUSCULAR VOLUME 87.1 fl (82.0-101.0); MEAN PLATELET VOLUME 9.9 fl (7.4-10.4); MONOCYTE # 0.9 10^3/ul (0.3-0.9); MONOCYTES % 8.3 % (0.0-11.0); NEUTROPHIL # 7.3 10^3/ul (1.6-7.5); PLATELET COUNT 237 10^3/UL (140-415); RED BLOOD COUNT 4.35 10^6/ul (4.20-5.40); RED CELL DISTRIBUTION WIDTH 13.5 % (11.5-14.5); WHITE BLOOD COUNT 10.7 10^3/ul (4.8-10.8)
[2017-01-25 08:11] LABS: ALBUMIN 3.6 g/dl (3.3-4.9); ALBUMIN/GLOBULIN RATIO 1.16; BILIRUBIN,INDIRECT 0.5 mg/dl (0-1.1); BILIRUBIN,TOTAL 0.5 mg/dl (0.2-1.3); CALCIUM 7.9 mg/dl (8.4-10.2); CHOL/HDL RATIO 4.6 RATIO; CREATININE 0.64 mg/dl (0.44-1.00); MAGNESIUM 1.8 mg/dl (1.7-2.5); POTASSIUM 3.5 mmol/L (3.5-5.1); TOTAL PROTEIN 6.7 g/dl (6.1-8.1)
[2017-01-25] MEDS: DOCUSATE SODIUM 100 MG CAP PO SCH ×2 (08:21→20:37)
[2017-01-25] MEDS: FAMOTIDINE 20 MG TAB PO SCH ×2 (08:21→20:37)
[2017-01-25] MEDS: ENOXAPARIN 40 MG/0.4 ML SYG SC SCH (08:22)
[2017-01-25 08:35] LABS: THYROID STIMULATING HORMONE 3.65 MIU/L (0.465-4.680)
--- NOTE | 2017-01-25 09:21 | HP ---
DATE OF ADMISSION: 01/25/2017 Please note that this is a duplicate dictation because my original dictation was cut short. PRESENTING COMPLAINT: Abdominal pain. HISTORY OF PRESENT ILLNESS: A 36-year-old female without any significant medical history other than obesity and history of blepharitis which was managed in this facility who presented to the ER with epigastric pain that was radiating to her right upper quadrant and to her back for the last 3 days. Pain was not associated with fever, but was associated with nausea and vomiting and was said to be at 10/10 at the worst, associated with loss of appetite, occasional diarrhea and nonbloody vomiting. She has had similar pain in the past, but usually it went away on its own. She denies passing out episodes. She denies dysuria or hematuria. She denies black stools. She denies blood in her stoo ls. REVIEW OF SYSTEMS: A 12-point review of system was done. Pertinent findings are as noted in HPI. PAST MEDICAL HISTORY: Obesity, Blepharitis. PAST SURGICAL HISTORY: Patient denies. ALLERGIES: NO KNOWN DRUG ALLERGIES. SOCIAL HISTORY: Denies tobacco, alcohol or illicit drug use. FAMILY HISTORY: Positive for gallstone disease. PHYSICAL EXAMINATION: VITAL SIGNS: At time of my review temperature 98.1, pulse 95, respirations 18, blood pressure 157/9 5, saturations 99% on room air. GENERAL: Obese female, alert and oriented, in no distress. HEENT: Head is normocephalic. Pupils are equal and reactive. Mucous membranes are moist. Posteri or pharynx clear of exudate. NECK: Supple. CHEST: Clear to auscultation. CARDIOVASCULAR: S1, S2, no murmurs. ABDOMEN: Soft. Mild tenderness in epigastric region. No guarding, no rebound, no rigidity. EXTREMITIES: Negative for edema. NEUROLOGIC: She had no focal deficits. SKIN: Devoid of rash or jaundice or diaphoresis. LABORATORY VALUES: Her complete metabolic profile was reviewed, and her AST was quite elevated at 6 46, ALT at 996, alkaline phosphatase was negative. Her lipase level was elevated at 5.666. Hematolo gy: She had a leukocytosis of 12,000, but normal hemoglobin, normal hematocrit, neutrophilia of 82% . Coag profile was normal. Urinalysis was pending at time of my review. IMAGING: Gallbladder ultrasound showed cholelithiasis without any evidence of gallbladder wall thick ening, normal common bile duct, hepatomegaly with possible fatty liver and increased echogenicity wh ich might also suggest cirrhosis. ASSESSMENT: A 36-year-old female who has presented with right upper abdominal pain managed for the f ollowin. Acute pancreatitis, likely secondary to gallstones, but due to patient's history of obesity, we cannot rule out other causes like hypertriglyceridemia. 2. Cholelithiasis, rule out choledocholithiasis causing #1. 3. Acute transaminitis which could be secondary to fatty liver or could be as a result of CBD obstr uction stones. 4. Steatohepatitis. 5. Obesity. 6. Leukocytosis, likely secondary to pancreatitis. PLAN: Admit the patient to the hospital and manage for pancreatitis by keeping the patient n.p.o., aggressive fluid hydration, pain control and antiemetic therapy. The patient is also to get MRCP an d GI review. Surgical consultation has been obtained with Dr. Winston and I will review the patient and further interventions will depend on her clinical course. Once patient is cleared for a diet re commendation is a low-cholesterol, low-fat, calorie diet, and the patient and will also recommend a good exercise regimen at the time of discharge. Plan of care has been reviewed with patient, questio ns have been answered. For prophylaxis, she will be on Lovenox as well as PPI. Dictated By: SARAH DOMINGO MD, BA/ELIAS Conf#: [id number] DID#: [id number]
--- NOTE | 2017-01-25 11:09 | PN ---
Date/Time of Note Date/Time of Note DATE: 01/25/17 TIME: 11:07 Assessment/Plan VTE Prophylaxis VTE Prophylaxis Intervention: SCD's Lines/Catheters IV [facility]ter Type [facility]from [facility] Peripheral IV Urinary Cath still in place: No Assessment/Plan Assessment/Plan 1. Acute pancreatitis, likely secondary to gallstones, but due to patient's history of obesity, 2. Cholelithiasis, rule out choledocholithiasis causing #1. 3. Acute transaminitis which could be secondary to fatty liver or could be as a result of CBD obstruction stones. 4. Steatohepatitis. 5. Obesity. 6. Leukocytosis, likely secondary to pancreatitis. Plan: NPO IVF Pain control GI and Gen Surgery Dr.samuel Winston has been consulted to see pt S/p MRCP done Subjective 24 Hr Interval Summary Free Text/Dictation c/o abdominal pain, IV pain meds, LFTss still high, awaiting GI and G surgery evaluation , s/p MRCP Exam/Review of Systems Vital Signs Vitals Vital Signs Date Time Temp Pulse Resp B/P Pulse Ox O2 Delivery O2 Flow Rate FiO2 01/25/17 08:12 98.7 84 16 126/74 97 Intake and Output 01/24/17 01/24/17 01/25/17 15:00 23:00 07:00 Intake Total 675 ml Balance 675 ml Exam GENERAL: Obese female, alert and oriented, in no distress. HEENT: Head is normocephalic. Pupils are equal and reactive. Mucous membranes are moist. Posterior pharynx clear of exudate. NECK: Supple. CHEST: Clear to auscultation. CARDIOVASCULAR: S1, S2, no murmurs. ABDOMEN: Soft. Mild tenderness in epigastric region. No guarding, no rebound , no rigidity. EXTREMITIES: Negative for edema. NEUROLOGIC: She had no focal deficits. Results Result Diagram: 01/25/17 0730 01/25/17 0730 Results 24 hrs Laboratory Tests Test 01/24/17 15:47 01/24/17 16:23 01/25/17 07:30 White Blood Count 12.5 #H 10.7 Red Blood Count 4.98 4.35 Hemoglobin 14.9 12.6 Hematocrit 42.7 37.9 Mean Corpuscular Volume 85.7 87.1 Mean Corpuscular Hemoglobin 29.9 29.0 Mean Corpuscular Hemoglobin Concent 34.9 33.2 Red Cell Distribution Width 13.2 13.5 Platelet Count 300 237 # Mean Platelet Volume 10.0 9.9 Neutrophils % 82.5 H 68.0 Lymphocytes % 9.5 L 21.7 Monocytes % 6.9 8.3 Eosinophils % 0.1 1.0 Basophils % 0.4 0.4 Nucleated Red Blood Cells % 0.0 0.0 Neutrophils # 10.3 H 7.3 Lymphocytes # 1.2 2.3 Monocytes # 0.9 0.9 Eosinophils # 0.0 0.1 Basophils # 0.1 0.0 Nucleated Red Blood Cells # 0.0 0.0 Prothrombin Time 13.0 Prothrombin Time Ratio 1.0 INR International Normalized Ratio 0.98 Activated Partial Thromboplast Time 26.6 Sodium Level 141 138 Potassium Level 4.1 3.5 Chloride Level 104 108 Carbon Dioxide Level 25 24 Anion Gap 16 10 # Blood Urea Nitrogen 8 8 Creatinine 0.68 0.64 Glucose Level 121 94 Calcium Level 9.4 7.9 L Total Bilirubin 0.7 0.5 Direct Bilirubin 0.00 0.00 Indirect Bilirubin 0.7 0.5 Aspartate Amino Transf (AST/SGOT) 646 H 225 H Alanine Aminotransferase (ALT/SGPT) 996 H 574 H Alkaline Phosphatase 121 98 Total Protein 8.0 6.7 # Albumin 4.6 3.6 # Globulin 3.40 H 3.10 Albumin/Globulin Ratio 1.35 1.16 Lipase 5666 H 1251 H Urine Color LT. YELLOW Urine Clarity CLOUDY Urine pH 6.0 Urine Specific Winkelman <=1.005 L Urine Ketones NEGATIVE Urine Nitrite NEGATIVE Urine Bilirubin NEGATIVE Urine Urobilinogen 0.2 E.U./dL Urine Leukocyte Esterase 1+ H Urine Microscopic RBC >50 Urine Microscopic WBC 2-5 Urine Epithelial Cells MANY Urine Bacteria FEW Urine Hemoglobin 3+ H Urine Glucose NEGATIVE Urine Total Protein 1+ H Hemoglobin A1c 5.4 Magnesium Level 1.8 Triglycerides Level 90 Cholesterol Level 166 LDL Cholesterol, Calculated 112 HDL Cholesterol 36 Cholesterol/HDL Ratio 4.6 Thyroid Stimulating Hormone (TSH) 3.650 Medications Medications Current Medications Pantoprazole 40 mg 40 mg DAILY@06 IV Last administered on 01/25/17t 06:05; Admin Dose 40 MG; Start 01/25/17 at 06:00 Sodium Chloride (NS) 1,000 ml @ 125 mls/hr Q8H IV Last administered on 08:10; Admin Dose 125 MLS/HR; Start 01/24/17 at 19:30 Morphine Sulfate (morphine) 3 mg Q4H PRN IV pain Last administered on 23:04; Admin Dose 3 MG; Start 01/24/17 at 19:30 Ondansetron HCl (Zofran Inj) 4 mg Q6H PRN IV NAUSEA AND/OR VOMITING Last administered on 01/25/17 03:11; Admin Dose 4 MG; Start 01/24/17 at 19:30 Docusate Sodium (Colace) 100 mg BID PO Last administered on 01/25/17 08:21; Admin Dose 100 MG; Start 01/24/17 at 21:00 Acetaminophen/ Hydrocodone Bitart (Crescent (7.5-325)) 1 tab Q6H PRN PO breakthrough pain; Start 01/24/17 at 19:30 Enoxaparin Sodium 40 mg 40 mg DAILY SC Last administered on 01/25/17 08:22; Admin Dose 40 MG; Start 01/25/17 at 09:00 Sodium Chloride (NS) 1,000 ml @ 125 mls/hr Q8H IV ; Start 01/25/17 at 02:17 Metoclopramide HCl (Reglan) 10 mg Q6H PRN IV NAUSEA AND/OR VOMITING; Start at 02:30 Morphine Sulfate (morphine) 4 mg Q4H PRN IV SEVERE PAIN LEVEL 7-10 Last administered on 01/25/17 08:21; Admin Dose 4 MG; Start 01/25/17 at 02:30 Famotidine (Pepcid) 20 mg Q12 PO Last administered on 01/25/17 08:21; Admin Dose 20 MG; Start 01/25/17 at 09:00 ISABEL SIN MD Jan 25, 2017 11:09
--- NOTE | 2017-01-25 13:14 | PN ---
Date/Time of Note Date/Time of Note DATE: 01/25/17 TIME: 13:11 Assessment/Plan Lines/Catheters IV [facility] Type (from [facility]): Peripheral IV De [place] [facility] in Place (from [facility]): No Assessment/Plan Chief Complaint/Hosp Course 1. Abdominal pain with laboratory findings including ultrasound and MRCP are suggestive of acute pancreatitis, probably secondary to gallstones. There is no evidence of cholecystitis. There is probable choledocholithiasis, even though MRCP does not suggest it. However, based on my surgical experience MRCP has not been very accurate at our facility to rule out choledocholithiasis. -GI consultation to proceed with ERCP -Eventual lap cholecystectomy after her pancreatitis has cooled off. -n.p.o. -judicious fluid management. 2. BMI of 30 with obesity. Patient is highly encouraged to optimize her nutrition and exercise to improve her overall health status. 3. Hypertension. The patient is encouraged to optimize nutrition and medication and weight loss. 4. Fatty liver as above. 5. Transaminitis secondary to possible passed stone or choledocholithiasis. Once again, encourage GI to proceed with ERCP. 6. Positive urinalysis with possible urinary tract infection. I recommend antibiotics per medical team. Thank you Problems: Subjective 24 Hr Interval Summary Abdominal pain. No vomiting. Min nausea. No cp/sob. No cough. No sz. No bleeding. Min bloating. Labs noted. No rash. Exam/Review of Systems Vital Signs Vitals Vital Signs Date Time Temp Pulse Resp B/P Pulse Ox O2 Delivery O2 Flow Rate FiO2 01/25/17 08:12 98.7 84 16 126/74 97 Intake and Output 01/24/17 01/24/17 01/25/17 14:59 22:59 06:59 Intake Total 675 ml Balance 675 ml Exam Free Text/Dictation GENERAL: Uncomfortable, obese, but no acute distress. HEENT: Pupils equal, reactive. No scleral icterus. Mucous membranes are moist. NECK: Supple, no JVD. PULMONARY: Normal respiratory effort. No wheezing. CARDIAC: S1, S2 present. ABDOMEN: Soft, tender in the epigastric region. No rebound, no guarding, not rigid. Negative Neal's. EXTREMITIES: No edema. VASCULAR: Cap refill less than 2 seconds. NEUROLOGIC: Alert, oriented, moves all 4 extremities grossly. Results Result Diagram: 01/25/17 0730 01/25/17 0730 ANA PAULA LÓPEZ MD Jan 25, 2017 13:14
--- NOTE | 2017-01-25 14:52 | CONS ---
Date/Time of Note Date/Time of Note DATE: 01/25/17 TIME: 14:29 Assessment/Plan Assessment/Plan Additional Assessment/Plan Assessment * Abdominal pain * Pancreatitis acute * Choledocholithiasis/cholelithiasis * MRCP 01/24/2017 * 1. Cholelithiasis. Otherwise unremarkable gallbladder without evidence for cholecystitis. 2. Mildly prominent distal common bile duct measures 7 mm. No intraductal calculus identified. 3. Slightly heterogeneous and indistinct pancreatic head.. Pancreatic infiltration and fluid. Findings consistent with acute pancreatitis. 4. Small amount of free fluid. No focal collection to suggest a phlegmon or pseudocyst. * Transaminitis * Hepatic steatosis vs choledocholithiasis * Obesity * Hypertension * Plan * ERCP 01/24/2017 risks and benefit explained to the patient and agreed with the procedure * scheduled today in view of patients severe abdominal pain and pancreatitis * lipase in am * continue present management Consultation Date/Type/Reason Admit Date/Time Date of Consultation: Jan 25, 2017 Type of Consultation: Gastroenterology Reason for Consultation Gallstone pancreatitis Referring Provider: SARAH DOMINGO of Present Illness 36 y/o female brought to er with complaint of abdominal pain.Past medical history of hypertension,obesity.Condition apparently started 3 days prior to consult epigastric pain sharp radiating to the back with associated nausea and vomiting.Pain was not relieved by NSAIDs hence sought consultation at ER .patient claims this is the first episode of the condition Emergency room course revealed lipase of 5666,AST 646 ALT 996 Alkaline phosphatase 121.Coagulation results were normal. 01/24/2017 MRCP 1. Cholelithiasis. Otherwise unremarkable gallbladder without evidence for cholecystitis. 2. Mildly prominent distal common bile duct measures 7 mm. No intraductal calculus identified. 3. Slightly heterogeneous and indistinct pancreatic head.. Pancreatic infiltration and fluid. Findings consistent with acute pancreatitis. 4. Small amount of free fluid. No focal collection to suggest a phlegmon or pseudocyst. On the floor patient still complaining of severe right upper quadrant and epigastric pain,no nausea and vomiting relieved by morphine.Present laboratory revealed Lipase 125 AST 225 ALT 574 WBC 10.7 Hemoglobin 12.7.I have talk with the patient regarding our plan to do ERCP today.Patient agreed with the plan Constitutional: improved Eyes: no complaints ENT: no complaints Respiratory: no complaints Cardiovascular: no complaints Gastrointestinal: decreased appetite, flatus, nausea, pain, vomiting, No blood, No diarrhea Genitourinary: no complaints Musculoskeletal: no complaints Skin: no complaints Neurologic: no complaints Endocrine: no complaints Lymphatic: no complaints Psychological: nl mood/affect, no complaints Immunologic: no complaints Past Medical History Medical History: hypertension, other (obesity) Past Surgical History Past Surgical Hx: no surgical history Family History Significant Family History: no pertinent family hx Social History Alcohol Use: none Smoking Status: Never smoker Exam/Review of Systems Vital Signs Vitals Vital Signs Date Time Temp Pulse Resp B/P Pulse Ox O2 Delivery O2 Flow Rate FiO2 01/25/17 08:12 98.7 84 16 126/74 97 Intake and Output 01/24/17 01/24/17 01/25/17 15:00 23:00 07:00 Intake Total 675 ml Balance 675 ml Exam Constitutional: alert, oriented, well developed Psych: nl mood/affect Head: atraumatic, normocephalic Eyes: PERRL, nl conjunctiva, nl sclera Neck: non-tender, supple Respiratory: clear to auscultation, normal air movement Cardiovascular: nl pulses, regular rate and rhythm Gastrointestinal: bowel sounds, nl liver, spleen, rebound or guarding (right upper quadrant), soft, tender (right upper and epigastric area,) Musculoskeletal: nl extremities to inspection, nl gait and stance Extremities: normal pulses Neurological: FACILITY MAINTENANCE TECHNICIAN II-XII intact, nl mental status, nl speech, nl strength Skin: nl turgor, No rash or lesions Lymph: nl lymph nodes Results Result Diagram: 01/25/17 0730 01/25/17 0730 Results 24 hrs Laboratory Tests Test 01/24/17 15:47 01/24/17 16:23 01/25/17 07:30 White Blood Count 12.5 #H 10.7 Red Blood Count 4.98 4.35 Hemoglobin 14.9 12.6 Hematocrit 42.7 37.9 Mean Corpuscular Volume 85.7 87.1 Mean Corpuscular Hemoglobin 29.9 29.0 Mean Corpuscular Hemoglobin Concent 34.9 33.2 Red Cell Distribution Width 13.2 13.5 Platelet Count 300 237 # Mean Platelet Volume 10.0 9.9 Neutrophils % 82.5 H 68.0 Lymphocytes % 9.5 L 21.7 Monocytes % 6.9 8.3 Eosinophils % 0.1 1.0 Basophils % 0.4 0.4 Nucleated Red Blood Cells % 0.0 0.0 Neutrophils # 10.3 H 7.3 Lymphocytes # 1.2 2.3 Monocytes # 0.9 0.9 Eosinophils # 0.0 0.1 Basophils # 0.1 0.0 Nucleated Red Blood Cells # 0.0 0.0 Prothrombin Time 13.0 Prothrombin Time Ratio 1.0 INR International Normalized Ratio 0.98 Activated Partial Thromboplast Time 26.6 Sodium Level 141 138 Potassium Level 4.1 3.5 Chloride Level 104 108 Carbon Dioxide Level 25 24 Anion Gap 16 10 # Blood Urea Nitrogen 8 8 Creatinine 0.68 0.64 Glucose Level 121 94 Calcium Level 9.4 7.9 L Total Bilirubin 0.7 0.5 Direct Bilirubin 0.00 0.00 Indirect Bilirubin 0.7 0.5 Aspartate Amino Transf (AST/SGOT) 646 H 225 H Alanine Aminotransferase (ALT/SGPT) 996 H 574 H Alkaline Phosphatase 121 98 Total Protein 8.0 6.7 # Albumin 4.6 3.6 # Globulin 3.40 H 3.10 Albumin/Globulin Ratio 1.35 1.16 Lipase 5666 H 1251 H Urine Color LT. YELLOW Urine Clarity CLOUDY Urine pH 6.0 Urine Specific [place] <=1.005 L Urine Ketones NEGATIVE Urine Nitrite NEGATIVE Urine Bilirubin NEGATIVE Urine Urobilinogen 0.2 E.U./dL Urine Leukocyte Esterase 1+ H Urine Microscopic RBC >50 Urine Microscopic WBC 2-5 Urine Epithelial Cells MANY Urine Bacteria FEW Urine Hemoglobin 3+ H Urine Glucose NEGATIVE Urine Total Protein 1+ H Hemoglobin A1c 5.4 Magnesium Level 1.8 Triglycerides Level 90 Cholesterol Level 166 LDL Cholesterol, Calculated 112 HDL Cholesterol 36 Cholesterol/HDL Ratio 4.6 Thyroid Stimulating Hormone (TSH) 3.650 Medications Medications Current Medications Pantoprazole 40 mg 40 mg DAILY@06 IV Last administered on 01/25/17 06:05; Admin Dose 40 MG; Start 01/25/17 at 06:00 Sodium Chloride (NS) 1,000 ml @ 125 mls/hr Q8H IV Last administered on 08:10; Admin Dose 125 MLS/HR; Start 01/24/17 at 19:30 Morphine Sulfate (morphine) 3 mg Q4H PRN IV pain Last administered on 23:04; Admin Dose 3 MG; Start 01/24/17 at 19:30 Ondansetron HCl (Zofran Inj) 4 mg Q6H PRN IV NAUSEA AND/OR VOMITING Last administered on 01/25/17 13:04; Admin Dose 4 MG; Start 01/24/17 at 19:30 Docusate Sodium (Colace) 100 mg BID PO Last administered on 01/25/17 08:21; Admin Dose 100 MG; Start 01/24/17 at 21:00 Acetaminophen/ Hydrocodone Bitart ([place] (7.5-325)) 1 tab Q6H PRN PO breakthrough pain; Start 01/24/17 at 19:30 Enoxaparin Sodium (Lovenox) 40 mg DAILY SC Last administered on 01/25/17 08:22 ; Admin Dose 40 MG; Start 01/25/17 at 09:00 Metoclopramide HCl (Reglan) 10 mg Q6H PRN IV NAUSEA AND/OR VOMITING; Start at 02:30 Morphine Sulfate (morphine) 4 mg Q4H PRN IV SEVERE PAIN LEVEL 7-10 Last administered on 01/25/17 13:04; Admin Dose 4 MG; Start 01/25/17 at 02:30 Famotidine (Pepcid) 20 mg Q12 PO Last administered on 01/25/17 08:21; Admin Dose 20 MG; Start 01/25/17 at 09:00 CHELLE SMALLWOOD MD Jan 25, 2017 14:39 CHELLE SMALLWOOD MD Jan 25, 2017 14:39
--- NOTE | 2017-01-25 15:08 | RADRPT ---
PROCEDURE: XR Chest. CLINICAL INDICATION: Preop for ERCP. Morbid obesity. TECHNIQUE: Single frontal view. COMPARISON: None. FINDINGS: The lungs are clear. The heart size is normal. There is no pleural effusion. There is no pneumothorax. IMPRESSION: 1. Normal chest radiograph. RPTAT: QQ .Kirill Payton MD, MD Date Time Electronically viewed and signed by .Kirill Payton MD, MD on 01/25/2017 15:08 .R/
[2017-01-25] MEDS ORDERED: INDOMETHACIN 50 MG SUPP PR ONE (15:30)
--- NOTE | 2017-01-25 18:00 | HPN ---
Date/Time of Note Date/Time of Note DATE: 01/25/17 TIME: 17:59 Interval H&P Admission Note Pt. seen H&P reviewed: No system changes CHELLE SMALLWOOD MD Jan 25, 2017 17:59
[2017-01-25] MEDS ORDERED: ROCURONIUM 50 MG INJ ONE (18:01)
[2017-01-25] MEDS ORDERED: PROPOFOL 40 ML ONE (18:01)
[2017-01-25] MEDS ORDERED: SUCCINYLCHOLINE CHLORIDE 100 MG/5 ML SYG IV ONE ×2 (18:01→18:33)
[2017-01-25] MEDS ORDERED: CEFAZOLIN 1 GM INJ ONE (18:33)
[2017-01-25] MEDS ORDERED: METOCLOPRAMIDE 10 MG INJ ONE (18:34)
[2017-01-25] MEDS ORDERED: DEXAMETHASONE 4 MG/ML 1 ML INJ ONE (18:34)
[2017-01-25] MEDS ORDERED: ONDANSETRON 4 MG INJ ONE (18:34)
[2017-01-25] MEDS ORDERED: KETOROLAC 30 MG INJ ONE (18:34)
[2017-01-25] MEDS ORDERED: NEOSTIGMINE 3 MG/3 ML SYRINGE ONE (18:35)
[2017-01-25] MEDS ORDERED: GLYCOPYRROLATE 0.4 MG INJ ONE (18:35)
[2017-01-26] VITALS (18 sets, daily range): BP systolic 133–157; BP diastolic 71–99; PULSE 68–78; RESP 16–28
[2017-01-26] MEDS: morphine 2 MG INJ IV PRN ×3 (02:30→12:31)
--- NOTE | 2017-01-26 04:46 | GILP ---
DATE OF PROCEDURE: 01/25/2017 PROCEDURE: Endoscopic retrograde cholangiopancreatography plus balloon sweeping and dilatation of t he ampulla. BRIEF HISTORY AND INDICATIONS: The patient with gallstone pancreatitis, dilated common bile duct, n egative MRCP, but given the dilatation of the biliary tree and the abnormal liver function tests, th e possibility of undetected common bile duct stone is significant, and we are requested to proceed w ith ERCP for clarification and management. PREMEDICATION: General anesthesia by anesthesiologist. SURGEON: Chelle Castro MD INSTRUMENT USED: Olympus side-viewing panendoscope. TECHNIQUE: After informed consent, with the patient/relatives understanding the procedure, its indic ations, potential risks and complications, including but not limited to: allergic reaction, bleeding , perforation or infection, and after all pertinent questions were answered to the patients satisfac tion, the patient/relatives signed witnessed informed consent. Following this, premedication was administered slowly IV push under careful cardiovascular and respi ratory monitoring with pulse oximetry, automatic blood pressure and ceramic research engineer. Once the sedative effect was achieved the patient was place in the prone position in the radiology s pecial procedures suite; the side viewing panendoscope was introduced and advanced under visual cont rol. Careful examination of the upper gastrointestinal tract, both on insertion as well as withdrawal of the instrument disclosed the following findings: ESOPHAGUS: The mucosa of the entire esophagus appears within normal limits. There is no evidence of esophagitis, varices, neoplasm or stricture. No Hiatal Hernia identified. STOMACH: Upon entrance to the stomach air was insufflated, the gastric nichols distended normally. Th e mucosa of the fundus, body and antrum of the stomach was carefully examined both head-on and on re troflexion, and shows no abnormalities. There is no evidence of gastritis, ulcers or neoplasm. PYLORUS: The pylorus appears patent and within normal limits, with no evidence of gastric outlet ob struction. DUODENUM: The duodenal mucosa was carefully examined in the duodenal bulb as well as the second por tion of the duodenum and appears unremarkable with no evidence of duodenitis, ulcer or neoplasm. AMPULLA OF VATER: The ampulla was identified and appears unremarkable. It was cannulated without d ifficulty opacifying the biliary tree which appears indeed somewhat dilated in the distal portion. There is no evidence of any identifiable fluoroscopic filling defect. At this point, balloon cathet er measuring 9 to 12 mm was utilized, and the biliary tree was swept on several occasions. No stone s appeared to be present. The ampulla was dilated with the balloon inflated at 12 mm without diffic ulty. IMPRESSION: Dilated common bile duct with normal intraductal stones post-dilatation of the ampulla of Vater. PLAN: Proceed with laparoscopic cholecystectomy as soon as possible to prevent further episodes of choledocholithiasis and other potential complications. Dictated By: CHELLE CASTRO MS/ELIAS Conf#: [id number] DID#: [id number]
[2017-01-26] MEDS: PANTOPRAZOLE 40 MG INJ IV SCH (05:26)
[2017-01-26] MEDS: SOD CHLORIDE 0.9% 1,000 ML IV SCH ×5 (05:33→23:29)
[2017-01-26 05:46] LABS: ADD SCAN DIFF NO
[2017-01-26 05:55] LABS: INR 1.09; PROTIME 14.1 Sec (12.2-14.2); PT RATIO 1.1
[2017-01-26 05:56] LABS: PARTIAL THROMBOPLASTIN TIME 32.2 Sec (25.0-35.0)
[2017-01-26 05:57] LABS: POTASSIUM 3.8 mmol/L (3.5-5.1)
[2017-01-26 06:00] LABS: CREATININE 0.62 mg/dl (0.44-1.00)
[2017-01-26 06:01] LABS: CALCIUM 8.5 mg/dl (8.4-10.2)
[2017-01-26 06:03] LABS: BASOPHILS % 0.2 % (0.0-2.0); HEMOGLOBIN 12.6 g/dl (12.0-16.0); LYMPHOCYTES # 1.7 10^3/ul (0.8-2.9); LYMPHOCYTES % 13.8 % (15.0-51.0); MEAN CORPUSCULAR HEMOGLOBIN 29.4 pg (29.0-33.0); MEAN CORPUSCULAR HGB CONC 34.1 g/dl (32.0-37.0); MEAN CORPUSCULAR VOLUME 86.4 fl (82.0-101.0); MEAN PLATELET VOLUME 10.2 fl (7.4-10.4); MONOCYTE # 0.7 10^3/ul (0.3-0.9); MONOCYTES % 5.7 % (0.0-11.0); NEUTROPHIL # 9.8 10^3/ul (1.6-7.5); NEUTROPHILS % 79.6 % (39.0-77.0); PLATELET COUNT 252 10^3/UL (140-415); RED BLOOD COUNT 4.28 10^6/ul (4.20-5.40); RED CELL DISTRIBUTION WIDTH 13.3 % (11.5-14.5); WHITE BLOOD COUNT 12.3 10^3/ul (4.8-10.8)
[2017-01-26 06:59] LABS: ALBUMIN 3.8 g/dl (3.3-4.9)
[2017-01-26 07:02] LABS: BILIRUBIN,INDIRECT 0.5 mg/dl (0-1.1); BILIRUBIN,TOTAL 0.5 mg/dl (0.2-1.3); TOTAL PROTEIN 7.2 g/dl (6.1-8.1)
[2017-01-26] MEDS: ONDANSETRON 4 MG INJ IV PRN (08:08)
--- NOTE | 2017-01-26 08:09 | RADRPT ---
PROCEDURE: X-ray fluoroscopy guidance CLINICAL INDICATION: Abdominal pain, ERCP, fluoroscopic guidance TECHNIQUE: Fluoroscopic guidance was utilized for an intraoperative procedure. COMPARISON: None available FINDINGS: Fluoroscopic guidance was utilized for and intraoperative procedure. 103 seconds of fluoroscopy time was utilized for the procedure. 5 x-ray images were obtained during the procedure in progress. No g ross filling defects are identified in the common bile duct. IMPRESSION: X-ray fluoroscopic guidance utilized for intraoperative procedure. No gross filling defects in the common bile duct. Please see procedure note for details. RPTAT: AA .Rod Devlin MD, Date Time Electronically viewed and signed by .Rod Devlin MD, on 01/26/2017 08:09 .P/
[2017-01-26] MEDS: FAMOTIDINE 20 MG TAB PO SCH ×2 (09:00→20:43)
[2017-01-26] MEDS: DOCUSATE SODIUM 100 MG CAP PO SCH ×2 (09:00→20:43)
[2017-01-26] MEDS: ENOXAPARIN 40 MG/0.4 ML SYG SC SCH (09:00)
[2017-01-26] MEDS ORDERED: LIDOCAINE 1% (STERILE-PAK) 30 ML INJ ONE (09:35)
[2017-01-26] MEDS ORDERED: BUPIVACAINE 0.25%/EPI (SDV) 30 ML INJ ONE (09:35)
[2017-01-26] MEDS ORDERED: MIDAZOLAM 1 MG/ML 2 ML INJ ONE (10:06)
--- NOTE | 2017-01-26 10:08 | HPN ---
Date/Time of Note Date/Time of Note DATE: 01/26/17 TIME: 10:08 Interval H&P Admission Note Pt. seen H&P reviewed: Systems changes noted below per chart notes ANA PAULA LÓPEZ MD Jan 26, 2017 10:08
--- NOTE | 2017-01-26 10:08 | PN ---
Date/Time of Note Date/Time of Note DATE: 01/26/17 TIME: 10:06 Assessment/Plan Lines/Catheters IV Catheter Type (from [facility]): Peripheral IV De La [facility] in Place (from [facility]): No Assessment/Plan Chief Complaint/Hosp Course 1. Abdominal pain with laboratory findings including ultrasound and MRCP are suggestive of acute pancreatitis, probably secondary to gallstones s/p ERCP stone removal and dilation 01/25. -lap cholecystectomy -judicious fluid management. 2. BMI of 30 with obesity. Patient is highly encouraged to optimize her nutrition and exercise to improve her overall health status. 3. Hypertension. The patient is encouraged to optimize nutrition and medication and weight loss. 4. Fatty liver as above. -liver bx 5. Transaminitis secondary choledocholithiasis s/p ERCP. -monitor 6. Positive urinalysis with possible urinary tract infection s/p abx Thank you Problems: Subjective 24 Hr Interval Summary s/p ERCP and stone removal with dilation. Abdominal pain improving. No vomiting. Min nausea. No cp/sob. No cough. No sz. No bleeding. Min bloating. Labs noted. No rash. Exam/Review of Systems Vital Signs Vitals Vital Signs Date Time Temp Pulse Resp B/P Pulse Ox O2 Delivery O2 Flow Rate FiO2 01/26/17 08:10 98.1 79 16 138/71 95 01/25/17 18:59 Mask Intake and Output 01/25/17 01/25/17 01/26/17 15:00 23:00 07:00 Intake Total 325 ml 1000 ml 1935 ml Balance 325 ml 1000 ml 1935 ml Exam Free Text/Dictation GENERAL: Uncomfortable, obese, but no acute distress. HEENT: Pupils equal, reactive. No scleral icterus. Mucous membranes are moist. NECK: Supple, no JVD. PULMONARY: Normal respiratory effort. No wheezing. CARDIAC: S1, S2 present. ABDOMEN: Soft, min tender in the epigastric region. No rebound, no guarding, not rigid. Negative Neal's. EXTREMITIES: No edema. VASCULAR: Cap refill less than 2 seconds. NEUROLOGIC: Alert, oriented, moves all 4 extremities grossly. Results Result Diagram: 01/26/17 0425 01/26/17 0435 ANA PAULA LÓPEZ MD Jan 26, 2017 10:08
[2017-01-26] MEDS ORDERED: ONDANSETRON 4 MG INJ ONE (11:43)
[2017-01-26] MEDS ORDERED: NEOSTIGMINE 3 MG/3 ML SYRINGE ONE (11:44)
[2017-01-26] MEDS ORDERED: PROPOFOL 40 ML ONE (11:44)
[2017-01-26] MEDS ORDERED: GLYCOPYRROLATE 0.4 MG INJ ONE (11:44)
[2017-01-26] MEDS ORDERED: ROCURONIUM 50 MG INJ ONE (11:44)
[2017-01-26] MEDS ORDERED: LIDOCAINE 2% (SDV) 5 ML INJ ONE (11:44)
[2017-01-26] MEDS ORDERED: CEFAZOLIN 1 GM INJ ONE (11:44)
[2017-01-26] MEDS ORDERED: metroNIDAZOLE 500 MG/NS (PMX) 100 ML IVPB ONE (11:44)
[2017-01-26] MEDS ORDERED: FENTAnyl 50 MCG/ML VIAL ONE (12:39)
--- NOTE | 2017-01-26 12:47 | OPR ---
Date/Time of Note Date/Time of Note DATE: 01/26/17 TIME: 12:42 Operative Report Procedure Date: Jan 26, 2017 Procedure Description Preoperative Diagnosis: Gallstone pancreatitis status post ERCP Transaminitis Abnormal liver Symptomatic cholelithiasis BMI 49 Postoperative Diagnosis: Gallstone pancreatitis status post ERCP Transaminitis Abnormal liver Symptomatic cholelithiasis BMI 49 Operation(s) Performed: 1. 3 port laparoscopic cholecystectomy 2. Laparoscopic liver wedge resection biopsy 3. Local [place], [id number] 4. Laparoscopic guided transversus abdominis plane block, bilateral Surgeon: ANA PAULA LÓPEZ MD Anesthesia: general, local, & regional Anesthesiologist: Darin Catalan MD Estimated Blood Loss: <10 ml's Specimens: Liver Gallbladder Tubes/Drains: None Complications: None Pt Condition Post Procedure: stable Disposition: PACU Indications: 36-year-old female with gallstones, pancreatitis, choledocholithiasis status post ERCP, and abdominal pain here for cholecystectomy. Risks include but are not limited to bleeding, infection, abscess, seroma, damage to intestines, damage to the liver, damage to biliary tree, hernia formation, chronic pain, biloma, need for reoperations or further surgeries, [place] , stroke, PE, DVT, pneumonia, organ failures, or even . Procedure Description: Patient was brought and placed supine on the operating table SCDs were placed, preoperative antibiotics were administered, all pressure points were well-padded , and after induction of anesthesia patient was prepped and draped in usual sterile fashion and timeout was performed. Incision was made in the right upper quadrant and using a 5 mm 0 scope and a 5 mm Optiview port abdomen was entered and abdomen was insufflated to 15mmHg. Laparoscopy was performed with a 5 mm 30 scope. No injuries were identified. The liver looks somewhat abnormal color. Gallbladder is without evidence of section. 12 mm port is placed in subxiphoid under direct visualization followed by another 5 mm port in the right upper quadrant. All port sites were injected with quarter percent Marcaine with epi and 1% lidocaine prior to any incisions. Bilateral transversus abdominis plane block was performed under laparoscopic visualization to aid with pain control intra-and postoperatively. Patient was placed in reverse Trendelenburg and right side up on gallbladder was retracted superolaterally. The gallbladder was large and distended. Using electrocautery and blunt dissection I was able to identify the cystic artery and cystic duct. The duct tapered into the gallbladder. Full critical angle view was identified. The artery was clipped twice proximally and once distally and transected. Cystic duct was transected with Endo TITO white load stapler. The gallbladder was taken off the liver with electrocautery. Hemostasis was obtained. Gallbladder was placed in an Endo Catch bag and removed through the subxiphoid port site. There was complete hemostasis. Due to the abnormality of the liver decision was made to perform liver wedge resection which was done with electrocautery and scissor with complete hemostasis right after. The specimen was sent to pathology for further evaluation. 12 mm made port site fascia was closed with Endo Close of an 0 Vicryl in a [id number] manner. Ports and CO2 were removed under direct visualization. Next complete hemostasis. Wounds were thoroughly irrigated skin was closed with 4-0 Monocryl in subcuticular fashion. Dermabond was applied. Patient was extubated and transferred to recovery room in stable condition and all counts were correct and the end of the operation 2.operation 2. ANA PAULA LÓPEZ MD Jan 26, 2017 12:47
[2017-01-26] MEDS ORDERED: FENTAnyl 50 MCG/ML VIAL IV ONE ×2 (13:00)
[2017-01-26] MEDS ORDERED: HYDROCODONE/APAP (5/325) TAB PO PRN (13:00)
[2017-01-26] MEDS ORDERED: morphine 2 MG INJ IV ONE (13:00)
--- NOTE | 2017-01-26 13:18 | PN ---
Date/Time of Note Date/Time of Note DATE: 01/26/17 TIME: 13:16 Assessment/Plan VTE Prophylaxis VTE Prophylaxis Intervention: SCD's Lines/Catheters [facility] ([facility] Peripheral IV Urinary Cath still in place: No Assessment/Plan Assessment/Plan 1. Acute pancreatitis, likely secondary to gallstones, but due to patient's history of obesity, 2. Cholelithiasis, rule out choledocholithiasis causing #1. 3. Acute transaminitis which could be secondary to fatty liver or could be as a result of CBD obstruction stones. 4. Steatohepatitis. 5. Obesity. 6. Leukocytosis, likely secondary to pancreatitis. Plan: s/p ERCP by GI Dilated common bile duct with normal intraductal stones post- dilatation of the ampulla of Vater. plan for cholecystectomy today NPO IVF GI and General surgery has been following patient Subjective 24 Hr Interval Summary Free Text/Dictation s/p ERCP by GI Dilated common bile duct with normal intraductal stones post- dilatation of the ampulla of Vater. plan for cholecystectomy today Exam/Review of Systems Vital Signs Vitals Vital Signs Date Time Temp Pulse Resp B/P Pulse Ox O2 Delivery O2 Flow Rate FiO2 01/26/17 12:56 74 22 139/88 92 Nasal Cannula 3.0 01/26/17 12:05 99.0 Intake and Output 01/25/17 01/25/17 01/26/17 15:00 23:00 07:00 Intake Total 325 ml 1000 ml 1935 ml Balance 325 ml 1000 ml 1935 ml Exam GENERAL: Obese female, alert and oriented, in no distress. HEENT: Head is normocephalic. Pupils are equal and reactive. Mucous membranes are moist. Posterior pharynx clear of exudate. NECK: Supple. CHEST: Clear to auscultation. CARDIOVASCULAR: S1, S2, no murmurs. ABDOMEN: Soft. Mild tenderness in epigastric region. No guarding, no rebound , no rigidity. EXTREMITIES: Negative for edema. NEUROLOGIC: She had no focal deficits. Results Result Diagram: 01/26/17 0425 01/26/17 0435 Results 24 hrs Laboratory Tests Test 01/26/17 04:25 01/26/17 04:35 White Blood Count 12.3 H Red Blood Count 4.28 Hemoglobin 12.6 Hematocrit 37.0 Mean Corpuscular Volume 86.4 Mean Corpuscular Hemoglobin 29.4 Mean Corpuscular Hemoglobin Concent 34.1 Red Cell Distribution Width 13.3 Platelet Count 252 Mean Platelet Volume 10.2 Neutrophils % 79.6 H Lymphocytes % 13.8 L Monocytes % 5.7 Eosinophils % 0.0 Basophils % 0.2 Nucleated Red Blood Cells % 0.0 Neutrophils # 9.8 H Lymphocytes # 1.7 Monocytes # 0.7 Eosinophils # 0.0 Basophils # 0.0 Nucleated Red Blood Cells # 0.0 Prothrombin Time 14.1 Prothrombin Time Ratio 1.1 INR International Normalized Ratio 1.09 Activated Partial Thromboplast Time 32.2 Sodium Level 140 Potassium Level 3.8 Chloride Level 105 Carbon Dioxide Level 23 Anion Gap 16 Blood Urea Nitrogen 9 Creatinine 0.62 Glucose Level 100 Calcium Level 8.5 Total Bilirubin 0.5 Direct Bilirubin 0.00 Indirect Bilirubin 0.5 Aspartate Amino Transf (AST/SGOT) 101 H Alanine Aminotransferase (ALT/SGPT) 392 H Alkaline Phosphatase 86 Total Protein 7.2 Albumin 3.8 Lipase 359 H Medications Medications Current Medications Pantoprazole 40 mg 40 mg DAILY@06 IV Last administered on 01/26/17 05:26; Admin Dose 40 MG; Start 01/25/17 at 06:00 Sodium Chloride (NS) 1,000 ml @ 125 mls/hr Q8H IV Last administered on 05:33; Admin Dose 125 MLS/HR; Start 01/24/17 at 19:30 Ondansetron HCl (Zofran Inj) 4 mg Q6H PRN IV NAUSEA AND/OR VOMITING Last administered on 01/26/17 08:08; Admin Dose 4 MG; Start 01/24/17 at 19:30 Docusate Sodium (Colace) 100 mg BID PO Last administered on 01/25/17 08:21; Admin Dose 100 MG; Start 01/24/17 at 21:00 Enoxaparin Sodium (Lovenox) 40 mg DAILY SC Last administered on 01/25/17 08:22 ; Admin Dose 40 MG; Start 01/25/17 at 09:00 Metoclopramide HCl (Reglan) 10 mg Q6H PRN IV NAUSEA AND/OR VOMITING; Start at 02:30 Famotidine (Pepcid) 20 mg Q12 PO Last administered on 01/25/17 08:21; Admin Dose 20 MG; Start 01/25/17 at 09:00 Acetaminophen/ Hydrocodone Bitart ([place] (5/325)) 2 tab Q4H PRN PO Pain 6-10; Start 01/26/17 at 13:00 Acetaminophen/ Hydrocodone Bitart ([place] (5/325)) 1 tab Q4H PRN PO Pain 1-5; Start 01/26/17 at 13:00 Hydromorphone HCl (Dilaudid) 0.5 mg Q2 PRN IV Breakthrough PAIN; Start at 13:00 ISABEL SIN MD Jan 26, 2017 13:18
[2017-01-26] MEDS ORDERED: MEPERIDINE 25 MG INJ IV PRN (14:00)
[2017-01-26] MEDS ORDERED: morphine (1 MG/ML) 10ML SYRINGE IV PRN (14:00)
[2017-01-26] MEDS ORDERED: DIPHENHYDRAMINE 50 MG INJ IV PRN (14:00)
[2017-01-26] MEDS ORDERED: ONDANSETRON 4 MG INJ IV PRN (14:00)
[2017-01-26] MEDS ORDERED: FENTAnyl 50 MCG/ML VIAL IV PRN (14:00)
--- NOTE | 2017-01-26 14:01 | PN ---
Date/Time of Note Date/Time of Note DATE: 01/26/17 TIME: 13:47 Assessment/Plan VTE Prophylaxis VTE Prophylaxis Intervention: SCD's Lines/Catheters IV Catheter Type (from [facility]): Peripheral IV Urinary Cath still in place: No Assessment/Plan Assessment/Plan Abdominal pain * Pancreatitis acute resolving * Choledocholithiasis/cholelithiasis * S/P ERCP with balloon sweeping and dilatation of ampulla * Laparoscopic cholecystectomy 01/26/2017 * MRCP 01/24/2017 * 1. Cholelithiasis. Otherwise unremarkable gallbladder without evidence for cholecystitis. 2. Mildly prominent distal common bile duct measures 7 mm. No intraductal calculus identified. 3. Slightly heterogeneous and indistinct pancreatic head.. Pancreatic infiltration and fluid. Findings consistent with acute pancreatitis. 4. Small amount of free fluid. No focal collection to suggest a phlegmon or pseudocyst. * ERCP with balloon sweeping and dilatation of ampulla 01/25/2017 * Dilated common bile duct with normal intraductal stones post-dilatation of the ampulla of Vater. Obesity * Hypertension * Plan * adequate pain control * continue present management * Diet - defer to surgery * chest physiotherapy Subjective 24 Hr Interval Summary Free Text/Dictation * Course reviewed with RN * Patient seen and examined * s/p laparoscopic cholecystectomy 01/26/2017 * ERCP with balloon sweeping and dilatation 01/26/2017 * Dilated common bile duct with normal intraductal stones post-dilatation of the ampulla of Vater. * complains of abdominal pain * lipase 351 from 1251 Exam/Review of Systems Vital Signs Vitals Vital Signs Date Time Temp Pulse Resp B/P Pulse Ox O2 Delivery O2 Flow Rate FiO2 01/26/17 12:56 74 22 139/88 92 Nasal Cannula 3.0 01/26/17 12:05 99.0 Intake and Output 01/25/17 01/25/17 01/26/17 15:00 23:00 07:00 Intake Total 325 ml 1000 ml 1935 ml Balance 325 ml 1000 ml 1935 ml Exam Constitutional: alert Neck: non-tender, supple Respiratory: clear to auscultation, diminished breath sounds, normal air movement Cardiovascular: nl pulses, regular rate and rhythm Gastrointestinal: distended, soft, tender Musculoskeletal: nl extremities to inspection Extremities: normal pulses Neurological: nl speech Skin: nl turgor Lymph: nl lymph nodes Results Result Diagram: 01/26/17 0425 01/26/17 0435 Results 24 hrs Laboratory Tests Test 01/26/17 04:25 01/26/17 04:35 White Blood Count 12.3 H Red Blood Count 4.28 Hemoglobin 12.6 Hematocrit 37.0 Mean Corpuscular Volume 86.4 Mean Corpuscular Hemoglobin 29.4 Mean Corpuscular Hemoglobin Concent 34.1 Red Cell Distribution Width 13.3 Platelet Count 252 Mean Platelet Volume 10.2 Neutrophils % 79.6 H Lymphocytes % 13.8 L Monocytes % 5.7 Eosinophils % 0.0 Basophils % 0.2 Nucleated Red Blood Cells % 0.0 Neutrophils # 9.8 H Lymphocytes # 1.7 Monocytes # 0.7 Eosinophils # 0.0 Basophils # 0.0 Nucleated Red Blood Cells # 0.0 Prothrombin Time 14.1 Prothrombin Time Ratio 1.1 INR International Normalized Ratio 1.09 Activated Partial Thromboplast Time 32.2 Sodium Level 140 Potassium Level 3.8 Chloride Level 105 Carbon Dioxide Level 23 Anion Gap 16 Blood Urea Nitrogen 9 Creatinine 0.62 Glucose Level 100 Calcium Level 8.5 Total Bilirubin 0.5 Direct Bilirubin 0.00 Indirect Bilirubin 0.5 Aspartate Amino Transf (AST/SGOT) 101 H Alanine Aminotransferase (ALT/SGPT) 392 H Alkaline Phosphatase 86 Total Protein 7.2 Albumin 3.8 Lipase 359 H Medications Medications Current Medications Pantoprazole 40 mg 40 mg DAILY@06 IV Last administered on 01/26/17 05:26; Admin Dose 40 MG; Start 01/25/17 at 06:00 Sodium Chloride (NS) 1,000 ml @ 125 mls/hr Q8H IV Last administered on 05:33; Admin Dose 125 MLS/HR; Start 01/24/17 at 19:30 Ondansetron HCl (Zofran Inj) 4 mg Q6H PRN IV NAUSEA AND/OR VOMITING Last administered on 01/26/17 08:08; Admin Dose 4 MG; Start 01/24/17 at 19:30 Docusate Sodium (Colace) 100 mg BID PO Last administered on 01/25/17 08:21; Admin Dose 100 MG; Start 01/24/17 at 21:00 Enoxaparin Sodium (Lovenox) 40 mg DAILY SC Last administered on 01/25/17 08:22 ; Admin Dose 40 MG; Start 01/25/17 at 09:00 Metoclopramide HCl (Reglan) 10 mg Q6H PRN IV NAUSEA AND/OR VOMITING; Start at 02:30 Famotidine (Pepcid) 20 mg Q12 PO Last administered on 01/25/17t 08:21; Admin Dose 20 MG; Start 01/25/17 at 09:00 Acetaminophen/ Hydrocodone Bitart ([place] (5/325)) 2 tab Q4H PRN PO Pain 6-10; Start 01/26/17 at 13:00 Acetaminophen/ Hydrocodone Bitart ([place] (5/325)) 1 tab Q4H PRN PO Pain 1-5; Start 01/26/17 at 13:00 Hydromorphone HCl (Dilaudid) 0.5 mg Q2 PRN IV Breakthrough PAIN; Start at 13:00 CHELLE SMALLWOOD MD Jan 26, 2017 14:00
[2017-01-26] MEDS: HYDROmorphONE 1 MG/ML SYG IV PRN ×3 (14:38→21:44)
[2017-01-26] MEDS: HYDROCODONE/APAP (5/325) TAB PO PRN (20:43)
[2017-01-27] MEDS: HYDROCODONE/APAP (5/325) TAB PO PRN ×2 (02:50→08:42)
[2017-01-27 03:26] VITALS: BP 134/83
[2017-01-27] MEDS: HYDROmorphONE 1 MG/ML SYG IV PRN ×6 (03:26→21:51)
[2017-01-27] MEDS: PANTOPRAZOLE 40 MG INJ IV SCH (05:03)
[2017-01-27 05:47] LABS: INR 1.08; PT RATIO 1.1
[2017-01-27 05:48] LABS: PARTIAL THROMBOPLASTIN TIME 29.4 Sec (25.0-35.0)
[2017-01-27 05:50] LABS: ALBUMIN 3.6 g/dl (3.3-4.9)
[2017-01-27 05:53] LABS: ALBUMIN/GLOBULIN RATIO 1.02; BILIRUBIN,INDIRECT 0.7 mg/dl (0-1.1); BILIRUBIN,TOTAL 0.7 mg/dl (0.2-1.3); CREATININE 0.64 mg/dl (0.44-1.00); TOTAL PROTEIN 7.1 g/dl (6.1-8.1)
[2017-01-27 06:01] LABS: POTASSIUM 2.9 mmol/L (3.5-5.1)
[2017-01-27 06:10] LABS: ADD SCAN DIFF NO
[2017-01-27 06:23] LABS: ABNORMAL IP MESSAGE 1; BASOPHIL # 0.1 10^3/ul (0.0-0.1); BASOPHILS % 0.3 % (0.0-2.0); EOSINOPHILS # 0.3 10^3/ul (0.0-0.5); EOSINOPHILS % 1.7 % (0.0-7.0); HEMATOCRIT 36.1 % (37.0-47.0); HEMOGLOBIN 12.4 g/dl (12.0-16.0); LYMPHOCYTES # 2.4 10^3/ul (0.8-2.9); LYMPHOCYTES % 16.1 % (15.0-51.0); MEAN CORPUSCULAR HGB CONC 34.3 g/dl (32.0-37.0); MEAN CORPUSCULAR VOLUME 87.2 fl (82.0-101.0); MEAN PLATELET VOLUME 10.3 fl (7.4-10.4); MONOCYTE # 1.6 10^3/ul (0.3-0.9); MONOCYTES % 10.6 % (0.0-11.0); NEUTROPHIL # 10.4 10^3/ul (1.6-7.5); NEUTROPHILS % 70.4 % (39.0-77.0); PLATELET COUNT 257 10^3/UL (140-415); RED BLOOD COUNT 4.14 10^6/ul (4.20-5.40); RED CELL DISTRIBUTION WIDTH 13.4 % (11.5-14.5); WHITE BLOOD COUNT 14.8 10^3/ul (4.8-10.8)
[2017-01-27] MEDS ORDERED: POTASSIUM CHLORIDE 250 ML IVPB ONE (06:30)
[2017-01-27] MEDS: SOD CHLORIDE 0.9% 1,000 ML IV SCH ×3 (07:15→21:56)
[2017-01-27 07:30] VITALS: BP 140/83; RESP 18
[2017-01-27] MEDS: FAMOTIDINE 20 MG TAB PO SCH ×2 (08:41→20:39)
[2017-01-27] MEDS: DOCUSATE SODIUM 100 MG CAP PO SCH ×2 (08:41→20:39)
[2017-01-27] MEDS: ENOXAPARIN 40 MG/0.4 ML SYG SC SCH (08:45)
[2017-01-27] MEDS ORDERED: POTASSIUM CHLORIDE (SR) 20 MEQ TAB PO ONE (09:00)
--- NOTE | 2017-01-27 13:29 | PN ---
Date/Time of Note Date/Time of Note DATE: 01/27/17 TIME: 13:25 Assessment/Plan VTE Prophylaxis VTE Prophylaxis Intervention: SCD's Lines/Catheters IV Catheter Type (from [facility]): Peripheral IV Urinary Cath still in place: No Assessment/Plan Assessment/Plan 1. Acute pancreatitis,gallstone s/p laproscopic cholecystectomy POD # 1 2. Cholelithiasis s/p ERCP 3. Acute transaminitis which could be secondary to fatty liver or could be as a result of CBD obstruction stones. 4. Steatohepatitis. 5. Obesity. 6. Leukocytosis, likely secondary to pancreatitis. 7. Severe hypokalemia Plan: s/p ERCP by GI Dilated common bile duct with normal intraductal stones post- dilatation of the ampulla of Vater. S/p Laproscopic cholecystectomy , pain controlled ambulate pt advance diet as per G surgery will follow up Subjective 24 Hr Interval Summary Free Text/Dictation s/p Laproscopic cholecystectomy, Pain controlled Exam/Review of Systems Vital Signs Vitals Vital Signs Date Time Temp Pulse Resp B/P Pulse Ox O2 Delivery O2 Flow Rate FiO2 01/27/17 07:30 99.3 89 18 140/83 95 01/26/17 20:00 Nasal Cannula 2.0 Intake and Output 01/26/17 01/26/17 01/27/17 14:59 22:59 06:59 Intake Total 1350 ml 400 ml 1395 ml Output Total 10 ml Balance 1340 ml 400 ml 1395 ml Exam GENERAL: Obese female, alert and oriented, in no distress. HEENT: Head is normocephalic. Pupils are equal and reactive. Mucous membranes are moist. Posterior pharynx clear of exudate. NECK: Supple. CHEST: Clear to auscultation. CARDIOVASCULAR: S1, S2, no murmurs. ABDOMEN: Soft. Mild tenderness in epigastric region. No guarding, no rebound , no rigidity. EXTREMITIES: Negative for edema. NEUROLOGIC: She had no focal deficits. Results Result Diagram: 01/27/17 0447 01/27/17446 Results 24 hrs Laboratory Tests Test 01/27/17 04:41 01/27/17 04:47 Magnesium Level 1.7 White Blood Count 14.8 #H Red Blood Count 4.14 L Hemoglobin 12.4 Hematocrit 36.1 L Mean Corpuscular Volume 87.2 Mean Corpuscular Hemoglobin 30.0 Mean Corpuscular Hemoglobin Concent 34.3 Red Cell Distribution Width 13.4 Platelet Count 257 Mean Platelet Volume 10.3 Neutrophils % 70.4 Lymphocytes % 16.1 Monocytes % 10.6 Eosinophils % 1.7 Basophils % 0.3 Nucleated Red Blood Cells % 0.0 Neutrophils # 10.4 H Lymphocytes # 2.4 Monocytes # 1.6 H Eosinophils # 0.3 Basophils # 0.1 Nucleated Red Blood Cells # 0.0 Prothrombin Time 14.0 Prothrombin Time Ratio 1.1 INR International Normalized Ratio 1.08 Activated Partial Thromboplast Time 29.4 Sodium Level 139 Potassium Level 2.9 *L Chloride Level 102 Carbon Dioxide Level 25 Anion Gap 15 Blood Urea Nitrogen 6 L Creatinine 0.64 Glucose Level 100 Calcium Level 8.0 L Total Bilirubin 0.7 Direct Bilirubin 0.00 Indirect Bilirubin 0.7 Aspartate Amino Transf (AST/SGOT) 77 H Alanine Aminotransferase (ALT/SGPT) 264 H Alkaline Phosphatase 82 Total Protein 7.1 Albumin 3.6 Globulin 3.50 H Albumin/Globulin Ratio 1.02 Lipase 128 Medications Medications Current Medications Sodium Chloride (NS) 1,000 ml @ 125 mls/hr Q8H IV Last administered on 07:15; Admin Dose 125 MLS/HR; Start 01/24/17 at 19:30 Ondansetron HCl (Zofran Inj) 4 mg Q6H PRN IV NAUSEA AND/OR VOMITING Last administered on 01/26/17 08:08; Admin Dose 4 MG; Start 01/24/17 at 19:30 Docusate Sodium (Colace) 100 mg BID PO Last administered on 01/27/17 08:41; Admin Dose 100 MG; Start 01/24/17 at 21:00 Enoxaparin Sodium (Lovenox) 40 mg DAILY SC Last administered on 01/27/17 08:45 ; Admin Dose 40 MG; Start 01/25/17 at 09:00 Metoclopramide HCl (Reglan) 10 mg Q6H PRN IV NAUSEA AND/OR VOMITING; Start at 02:30 Famotidine (Pepcid) 20 mg Q12 PO Last administered on 01/27/17 08:41; Admin Dose 20 MG; Start 01/25/17 at 09:00 Acetaminophen/ Hydrocodone Bitart ([place] (5/325)) 2 tab Q4H PRN PO Pain 6-10 Last administered on 01/27/17 08:42; Admin Dose 2 TAB; Start 01/26/17 at 13:00 Acetaminophen/ Hydrocodone Bitart ([place] (5/325)) 1 tab Q4H PRN PO Pain 1-5; Start 01/26/17 at 13:00 Hydromorphone HCl (Dilaudid) 0.5 mg Q2 PRN IV Breakthrough PAIN Last administered on 01/27/17 10:29; Admin Dose 0.5 MG; Start 01/26/17 at 13:00 ISABEL SIN MD Jan 27, 2017 13:29
--- NOTE | 2017-01-27 14:43 | PN ---
Date/Time of Note Date/Time of Note DATE: 01/27/17 TIME: 14:38 Assessment/Plan VTE Prophylaxis VTE Prophylaxis Intervention: SCD's Lines/Catheters IV C[facility]ter Type (from [facility]): Peripheral IV Urinary Cath still in place: No Assessment/Plan Assessment/Plan Abdominal pain * Pancreatitis acute resolving * Choledocholithiasis/cholelithiasis * S/P ERCP with balloon sweeping and dilatation of ampulla * Laparoscopic cholecystectomy 01/26/2017 * MRCP 01/24/2017 * 1. Cholelithiasis. Otherwise unremarkable gallbladder without evidence for cholecystitis. 2. Mildly prominent distal common bile duct measures 7 mm. No intraductal calculus identified. 3. Slightly heterogeneous and indistinct pancreatic head.. Pancreatic infiltration and fluid. Findings consistent with acute pancreatitis. 4. Small amount of free fluid. No focal collection to suggest a phlegmon or pseudocyst. * ERCP with balloon sweeping and dilatation of ampulla 01/25/2017 * Dilated common bile duct with normal intraductal stones post-dilatation of the ampulla of Vater. Obesity * Hypertension * Hypokalemia Plan * adequate pain control * correct hypokalemia * continue present management * Diet - defer to surgery Subjective 24 Hr Interval Summary Free Text/Dictation * Course reviewed with RN * patient seen and examined * complains of abdominal pain * S/P cholecystectomy 01/26/2017 * K 3.2 Exam/Review of Systems Vital Signs Vitals Vital Signs Date Time Temp Pulse Resp B/P Pulse Ox O2 Delivery O2 Flow Rate FiO2 01/27/17 13:36 Nasal Cannula 2.0 01/27/17 07:30 99.3 89 18 140/83 95 Intake and Output 01/26/17 01/26/17 01/27/17 15:00 23:00 07:00 Intake Total 1350 ml 400 ml 1395 ml Output Total 10 ml Balance 1340 ml 400 ml 1395 ml Exam Constitutional: alert Neck: non-tender, supple Respiratory: clear to auscultation, normal air movement Cardiovascular: nl pulses, regular rate and rhythm Gastrointestinal: bowel sounds, distended, soft, tender (diffuse, no rebound tenderness) Musculoskeletal: nl extremities to inspection Extremities: normal pulses Results Result Diagram: 01/27/17 0447 01/27/17 1248 Results 24 hrs Laboratory Tests Test 01/27/17 04:41 01/27/17 04:47 01/27/17 12:48 Magnesium Level 1.7 White Blood Count 14.8 #H Red Blood Count 4.14 L Hemoglobin 12.4 Hematocrit 36.1 L Mean Corpuscular Volume 87.2 Mean Corpuscular Hemoglobin 30.0 Mean Corpuscular Hemoglobin Concent 34.3 Red Cell Distribution Width 13.4 Platelet Count 257 Mean Platelet Volume 10.3 Neutrophils % 70.4 Lymphocytes % 16.1 Monocytes % 10.6 Eosinophils % 1.7 Basophils % 0.3 Nucleated Red Blood Cells % 0.0 Neutrophils # 10.4 H Lymphocytes # 2.4 Monocytes # 1.6 H Eosinophils # 0.3 Basophils # 0.1 Nucleated Red Blood Cells # 0.0 Prothrombin Time 14.0 Prothrombin Time Ratio 1.1 INR International Normalized Ratio 1.08 Activated Partial Thromboplast Time 29.4 Sodium Level 139 Potassium Level 2.9 *L 3.3 L Chloride Level 102 Carbon Dioxide Level 25 Anion Gap 15 Blood Urea Nitrogen 6 L Creatinine 0.64 Glucose Level 100 Calcium Level 8.0 L Total Bilirubin 0.7 Direct Bilirubin 0.00 Indirect Bilirubin 0.7 Aspartate Amino Transf (AST/SGOT) 77 H Alanine Aminotransferase (ALT/SGPT) 264 H Alkaline Phosphatase 82 Total Protein 7.1 Albumin 3.6 Globulin 3.50 H Albumin/Globulin Ratio 1.02 Lipase 128 Medications Medications Current Medications Sodium Chloride (NS) 1,000 ml @ 125 mls/hr Q8H IV Last administered on 14:10; Admin Dose 125 MLS/HR; Start 01/24/17 at 19:30 Ondansetron HCl (Zofran Inj) 4 mg Q6H PRN IV NAUSEA AND/OR VOMITING Last administered on 01/26/17 08:08; Admin Dose 4 MG; Start 01/24/17 at 19:30 Docusate Sodium (Colace) 100 mg BID PO Last administered on 01/27/17 08:41; Admin Dose 100 MG; Start 01/24/17 at 21:00 Enoxaparin Sodium (Lovenox) 40 mg DAILY SC Last administered on 01/27/17 08:45 ; Admin Dose 40 MG; Start 01/25/17 at 09:00 Metoclopramide HCl (Reglan) 10 mg Q6H PRN IV NAUSEA AND/OR VOMITING; Start at 02:30 Famotidine (Pepcid) 20 mg Q12 PO Last administered on 01/27/17 08:41; Admin Dose 20 MG; Start 01/25/17 at 09:00 Acetaminophen/ Hydrocodone Bitart ([place] (5/325)) 2 tab Q4H PRN PO Pain 6-10 Last administered on 01/27/17 08:42; Admin Dose 2 TAB; Start 01/26/17 at 13:00 Acetaminophen/ Hydrocodone Bitart ([place] (5/325)) 1 tab Q4H PRN PO Pain 1-5; Start 01/26/17 at 13:00 Hydromorphone HCl (Dilaudid) 0.5 mg Q2 PRN IV Breakthrough PAIN Last administered on 01/27/17 14:15; Admin Dose 0.5 MG; Start 01/26/17 at 13:00 CHELLE SMALLWOOD MD Jan 27, 2017 14:43
[2017-01-27 19:55] VITALS: BP 139/87; RESP 19
--- NOTE | 2017-01-27 20:50 | PN ---
Date/Time of Note Date/Time of Note DATE: 01/27/17 TIME: 20:48 Assessment/Plan Lines/Catheters IV Catheter Type (from [facility]): Peripheral IV [place] in Place (from [facility]): No Assessment/Plan Chief Complaint/Hosp Course 1. Abdominal pain with laboratory findings including ultrasound and MRCP are suggestive of acute pancreatitis, probably secondary to gallstones s/p ERCP stone removal and dilation 01/25. s/p 3 port lap cholecystectomy 01/26 -judicious fluid management. 2. BMI of 30 with obesity. Patient is highly encouraged to optimize her nutrition and exercise to improve her overall health status. 3. Hypertension. The patient is encouraged to optimize nutrition and medication and weight loss. 4. Fatty liver as above. -liver bx 5. Transaminitis secondary choledocholithiasis s/p ERCP. Improving -monitor 6. Positive urinalysis with possible urinary tract infection s/p abx Thank you Problems: Subjective 24 Hr Interval Summary s/p ERCP and stone removal with dilation 01/25. s/p 3 port lap tori 01/26. Abdominal pain. No vomiting. Min nausea. No cp/sob. No cough. No sz. No bleeding. Min bloating. No rash. Exam/Review of Systems Vital Signs Vitals Vital Signs Date Time Temp Pulse Resp B/P Pulse Ox O2 Delivery O2 Flow Rate FiO2 01/27/17 19:55 98.8 92 19 139/87 96 01/27/17 13:36 Nasal Cannula 2.0 Intake and Output 01/26/17 01/26/17 01/27/17 15:00 23:00 07:00 Intake Total 1350 ml 400 ml 1395 ml Output Total 10 ml Balance 1340 ml 400 ml 1395 ml Exam Free Text/Dictation GENERAL: Uncomfortable, obese, but no acute distress. HEENT: Pupils equal, reactive. No scleral icterus. Mucous membranes are moist. NECK: Supple, no JVD. PULMONARY: Normal respiratory effort. No wheezing. CARDIAC: S1, S2 present. ABDOMEN: Soft, min tender in the epigastric region. No rebound, no guarding, not rigid. Negative Neal's. EXTREMITIES: No edema. VASCULAR: Cap refill less than 2 seconds. NEUROLOGIC: Alert, oriented, moves all 4 extremities grossly. Results Result Diagram: 01/27/17 0447 01/27/17 1248 ANA PAULA LÓPEZ MD Jan 27, 2017 20:50
[2017-01-28] MEDS: HYDROmorphONE 1 MG/ML SYG IV PRN ×5 (00:56→20:56)
[2017-01-28] MEDS: SOD CHLORIDE 0.9% 1,000 ML IV SCH ×2 (06:17→14:43)
[2017-01-28 07:36] LABS: INR 1.1; PARTIAL THROMBOPLASTIN TIME 34.5 Sec (25.0-35.0); PROTIME 14.2 Sec (12.2-14.2); PT RATIO 1.1
[2017-01-28 07:43] LABS: CREATININE 0.59 mg/dl (0.44-1.00)
[2017-01-28 07:44] LABS: CALCIUM 8.5 mg/dl (8.4-10.2)
[2017-01-28 08:42] VITALS: BP 156/98; RESP 17
[2017-01-28] MEDS: FAMOTIDINE 20 MG TAB PO SCH ×2 (09:29→20:55)
[2017-01-28] MEDS: DOCUSATE SODIUM 100 MG CAP PO SCH ×2 (09:29→20:55)
[2017-01-28] MEDS: ENOXAPARIN 40 MG/0.4 ML SYG SC SCH (09:30)
[2017-01-28] MEDS: HYDROCODONE/APAP (5/325) TAB PO PRN (09:41)
--- NOTE | 2017-01-28 10:53 | PN ---
Date/Time of Note Date/Time of Note DATE: 01/28/17 TIME: 10:52 Assessment/Plan Lines/Catheters IV Catheter Type (from [facility]): Peripheral IV [place] in Place (from [facility]): No Assessment/Plan Chief Complaint/Hosp Course 1. Abdominal pain with laboratory findings including ultrasound and MRCP are suggestive of acute pancreatitis, probably secondary to gallstones s/p ERCP stone removal and dilation 01/25. s/p 3 port lap cholecystectomy 01/26 -judicious fluid management. -pain control -oob/ambulate -check labs 2. BMI of 30 with obesity. Patient is highly encouraged to optimize her nutrition and exercise to improve her overall health status. 3. Hypertension. The patient is encouraged to optimize nutrition and medication and weight loss. 4. Fatty liver as above. -liver bx 5. Transaminitis secondary choledocholithiasis s/p ERCP. Improving -monitor 6. Positive urinalysis with possible urinary tract infection s/p abx Thank you Problems: Subjective 24 Hr Interval Summary s/p ERCP and stone removal with dilation 01/25. s/p 3 port lap tori 01/26. Abdominal pain. No vomiting. Min nausea. No cp/sob. No cough. No sz. No bleeding. Min bloating. No rash. Exam/Review of Systems Vital Signs Vitals Vital Signs Date Time Temp Pulse Resp B/P Pulse Ox O2 Delivery O2 Flow Rate FiO2 01/28/17 08:42 99.7 94 17 156/98 92 01/27/17 20:00 Nasal Cannula 2.0 Intake and Output 01/27/17 01/27/17 01/28/17 15:00 23:00 07:00 Intake Total 1250 ml 2160 ml 1460 ml Balance 1250 ml 2160 ml 1460 ml Exam Free Text/Dictation GENERAL: Uncomfortable, obese, but no acute distress. HEENT: Pupils equal, reactive. No scleral icterus. Mucous membranes are moist. NECK: Supple, no JVD. PULMONARY: Normal respiratory effort. No wheezing. CARDIAC: S1, S2 present. ABDOMEN: Soft, min tender in the epigastric region. No rebound, no guarding, not rigid. Negative Neal's. EXTREMITIES: No edema. VASCULAR: Cap refill less than 2 seconds. NEUROLOGIC: Alert, oriented, moves all 4 extremities grossly. Results Result Diagram: 01/27/17 0447 01/28/17 0520 ANA PAULA LÓPEZ MD Jan 28, 2017 10:53
--- NOTE | 2017-01-28 10:57 | PN ---
Date/Time of Note Date/Time of Note DATE: 01/28/17 TIME: 10:53 Assessment/Plan VTE Prophylaxis VTE Prophylaxis Intervention: SCD's Lines/Catheters [facility] Peripheral IV Urinary Cath still in place: No Assessment/Plan Assessment/Plan Abdominal pain * Pancreatitis acute resolving * Choledocholithiasis/cholelithiasis * S/P ERCP with balloon sweeping and dilatation of ampulla * Laparoscopic cholecystectomy 01/26/2017 * MRCP 01/24/2017 * 1. Cholelithiasis. Otherwise unremarkable gallbladder without evidence for cholecystitis. 2. Mildly prominent distal common bile duct measures 7 mm. No intraductal calculus identified. 3. Slightly heterogeneous and indistinct pancreatic head.. Pancreatic infiltration and fluid. Findings consistent with acute pancreatitis. 4. Small amount of free fluid. No focal collection to suggest a phlegmon or pseudocyst. * ERCP with balloon sweeping and dilatation of ampulla 01/25/2017 * Dilated common bile duct with normal intraductal stones post-dilatation of the ampulla of V[place]. Obesity * Hypertension controlled * Hypokalemia 3.0 Plan * adequate pain control * correct hypokalemia * continue present management * Diet - defer to surgery Subjective 24 Hr Interval Summary Free Text/Dictation * Course reviewed with RN * patient seen examined * on and abdominal pain * K 3.0 Exam/Review of Systems Vital Signs Vitals Vital Signs Date Time Temp Pulse Resp B/P Pulse Ox O2 Delivery O2 Flow Rate FiO2 01/28/17 08:42 99.7 94 17 156/98 92 01/27/17 20:00 Nasal Cannula 2.0 Intake and Output 01/27/17 01/27/17 01/28/17 15:00 23:00 07:00 Intake Total 1250 ml 2160 ml 1460 ml Balance 1250 ml 2160 ml 1460 ml Exam Constitutional: alert, oriented, well developed Head: normocephalic Neck: non-tender, supple Respiratory: clear to auscultation, diminished breath sounds, normal air movement Cardiovascular: nl pulses, regular rate and rhythm Gastrointestinal: bowel sounds, distended, non-tender, soft Musculoskeletal: nl extremities to inspection, nl gait and stance Neurological: nl mental status, nl speech Skin: nl turgor, rash or lesions Results Result Diagram: 01/27/17 0447 01/28/17 0520 Results 24 hrs Laboratory Tests Test 01/27/17 12:48 01/28/17 05:20 Potassium Level 3.3 L 3.0 L Prothrombin Time 14.2 Prothrombin Time Ratio 1.1 INR International Normalized Ratio 1.10 Activated Partial Thromboplast Time 34.5 Sodium Level 139 Chloride Level 101 Carbon Dioxide Level 27 Anion Gap 14 Blood Urea Nitrogen 4 L Creatinine 0.59 Glucose Level 104 Calcium Level 8.5 Magnesium Level 1.9 Medications Medications Current Medications Sodium Chloride (NS) 1,000 ml @ 125 mls/hr Q8H IV Last administered on 06:17; Admin Dose 125 MLS/HR; Start 01/24/17 at 19:30 Ondansetron HCl (Zofran Inj) 4 mg Q6H PRN IV NAUSEA AND/OR VOMITING Last administered on 01/26/17 08:08; Admin Dose 4 MG; Start 01/24/17 at 19:30 Docusate Sodium (Colace) 100 mg BID PO Last administered on 01/28/17 09:29; Admin Dose 100 MG; Start 01/24/17 at 21:00 Enoxaparin Sodium (Lovenox) 40 mg DAILY SC Last administered on 01/28/17 09:30 ; Admin Dose 40 MG; Start 01/25/17 at 09:00 Metoclopramide HCl (Reglan) 10 mg Q6H PRN IV NAUSEA AND/OR VOMITING; Start at 02:30 Famotidine (Pepcid) 20 mg Q12 PO Last administered on 01/28/17 09:29; Admin Dose 20 MG; Start 01/25/17 at 09:00 Acetaminophen/ Hydrocodone Bitart ([place] (5/325)) 2 tab Q4H PRN PO Pain 6-10 Last administered on 01/28/17 09:41; Admin Dose 2 TAB; Start 01/26/17 at 13:00 Acetaminophen/ Hydrocodone Bitart ([place] (5/325)) 1 tab Q4H PRN PO Pain 1-5; Start 01/26/17 at 13:00 Hydromorphone HCl (Dilaudid) 0.5 mg Q2 PRN IV Breakthrough PAIN Last administered on 01/28/17 04:29; Admin Dose 0.5 MG; Start 01/26/17 at 13:00 CHELLE SMALLWOOD MD Jan 28, 2017 10:57
[2017-01-28 10:59] LABS: ADD SCAN DIFF NO
[2017-01-28 11:02] LABS: BASOPHIL # 0.1 10^3/ul (0.0-0.1); BASOPHILS % 0.4 % (0.0-2.0); EOSINOPHILS # 0.2 10^3/ul (0.0-0.5); EOSINOPHILS % 1.5 % (0.0-7.0); HEMATOCRIT 37.2 % (37.0-47.0); HEMOGLOBIN 12.3 g/dl (12.0-16.0); LYMPHOCYTES # 2.2 10^3/ul (0.8-2.9); LYMPHOCYTES % 16.4 % (15.0-51.0); MEAN CORPUSCULAR HEMOGLOBIN 29.4 pg (29.0-33.0); MEAN CORPUSCULAR HGB CONC 33.1 g/dl (32.0-37.0); MEAN PLATELET VOLUME 10.6 fl (7.4-10.4); MONOCYTE # 1.2 10^3/ul (0.3-0.9); MONOCYTES % 8.8 % (0.0-11.0); NEUTROPHIL # 9.9 10^3/ul (1.6-7.5); NEUTROPHILS % 72.2 % (39.0-77.0); PLATELET COUNT 238 10^3/UL (140-415); RED BLOOD COUNT 4.18 10^6/ul (4.20-5.40); WHITE BLOOD COUNT 13.7 10^3/ul (4.8-10.8)
[2017-01-28 11:25] LABS: ALBUMIN 3.6 g/dl (3.3-4.9); BILIRUBIN,DIRECT 0.6 mg/dl (0.00-0.20); BILIRUBIN,INDIRECT 0.8 mg/dl (0-1.1); BILIRUBIN,TOTAL 1.4 mg/dl (0.2-1.3)
--- NOTE | 2017-01-28 12:19 | PN ---
Date/Time of Note Date/Time of Note DATE: 01/28/17 TIME: 12:15 Assessment/Plan VTE Prophylaxis VTE Prophylaxis Intervention: SCD's Lines/Catheters IV C[facility]ter Type (from [facility]): Peripheral IV Urinary Cath still in place: No Assessment/Plan Assessment/Plan 1. Acute pancreatitis,gallstone s/p laproscopic cholecystectomy POD # 1 2. Cholelithiasis s/p ERCP with balloon sweeping and dilatation of ampulla 01/25 3. Acute transaminitis- LFTs are trended up post operative 4. Steatohepatitis. 5. Obesity. 6. Leukocytosis, likely secondary to pancreatitis. 7. Severe hypokalemia Plan: s/p ERCP with balloon sweeping and dilatation of ampulla 01/25/2017- now S/p Laproscopic cholecystectomy , pain controlled pt LFTs are rising, still on clear liquid diet, will wait until G surg feel comfortable to advance diet ambulate pt will follow up Subjective 24 Hr Interval Summary Free Text/Dictation WBC improved to 13.7, Cr stabloe, LFTs trended up, still on clear liquid diet Exam/Review of Systems Vital Signs Vitals Vital Signs Date Time Temp Pulse Resp B/P Pulse Ox O2 Delivery O2 Flow Rate FiO2 01/28/17 08:42 99.7 94 17 156/98 92 01/27/17 20:00 Nasal Cannula 2.0 Intake and Output 01/27/17 01/27/17 01/28/17 15:00 23:00 07:00 Intake Total 1250 ml 2160 ml 1460 ml Balance 1250 ml 2160 ml 1460 ml Exam GENERAL: Obese female, alert and oriented, in no distress. HEENT: Head is normocephalic. Pupils are equal and reactive. Mucous membranes are moist. Posterior pharynx clear of exudate. NECK: Supple. CHEST: Clear to auscultation. CARDIOVASCULAR: S1, S2, no murmurs. ABDOMEN: Soft. Mild tenderness in epigastric region. No guarding, no rebound , no rigidity. EXTREMITIES: Negative for edema. NEUROLOGIC: She had no focal deficits. Results Result Diagram: 01/28/17 0520 01/28/17 0520 Results 24 hrs Laboratory Tests Test 01/27/17 12:48 01/28/17 05:20 01/28/17 05:30 Potassium Level 3.3 L 3.0 L White Blood Count 13.7 H Red Blood Count 4.18 L Hemoglobin 12.3 Hematocrit 37.2 Mean Corpuscular Volume 89.0 Mean Corpuscular Hemoglobin 29.4 Mean Corpuscular Hemoglobin Concent 33.1 Red Cell Distribution Width 14.0 Platelet Count 238 Mean Platelet Volume 10.6 H Neutrophils % 72.2 Lymphocytes % 16.4 Monocytes % 8.8 Eosinophils % 1.5 Basophils % 0.4 Nucleated Red Blood Cells % 0.0 Neutrophils # 9.9 H Lymphocytes # 2.2 Monocytes # 1.2 H Eosinophils # 0.2 Basophils # 0.1 Nucleated Red Blood Cells # 0.0 Prothrombin Time 14.2 Prothrombin Time Ratio 1.1 INR International Normalized Ratio 1.10 Activated Partial Thromboplast Time 34.5 Sodium Level 139 Chloride Level 101 Carbon Dioxide Level 27 Anion Gap 14 Blood Urea Nitrogen 4 L Creatinine 0.59 Glucose Level 104 Calcium Level 8.5 Magnesium Level 1.9 Total Bilirubin 1.4 H Direct Bilirubin 0.60 #H Indirect Bilirubin 0.8 Aspartate Amino Transf (AST/SGOT) 222 H Alanine Aminotransferase (ALT/SGPT) 363 H Alkaline Phosphatase 134 #H Total Protein 7.0 Albumin 3.6 Medications Medications Current Medications Sodium Chloride (NS) 1,000 ml @ 125 mls/hr Q8H IV Last administered on 06:17; Admin Dose 125 MLS/HR; Start 01/24/17 at 19:30 Ondansetron HCl (Zofran Inj) 4 mg Q6H PRN IV NAUSEA AND/OR VOMITING Last administered on 01/26/17 08:08; Admin Dose 4 MG; Start 01/24/17 at 19:30 Docusate Sodium (Colace) 100 mg BID PO Last administered on 01/28/17 09:29; Admin Dose 100 MG; Start 01/24/17 at 21:00 Enoxaparin Sodium (Lovenox) 40 mg DAILY SC Last administered on 01/28/17 09:30 ; Admin Dose 40 MG; Start 01/25/17 at 09:00 Metoclopramide HCl (Reglan) 10 mg Q6H PRN IV NAUSEA AND/OR VOMITING; Start at 02:30 Famotidine (Pepcid) 20 mg Q12 PO Last administered on 01/28/17 09:29; Admin Dose 20 MG; Start 01/25/17 at 09:00 Acetaminophen/ Hydrocodone Bitart ([place] (5/325)) 2 tab Q4H PRN PO Pain 6-10 Last administered on 01/28/17 09:41; Admin Dose 2 TAB; Start 01/26/17 at 13:00 Acetaminophen/ Hydrocodone Bitart ([place] (5/325)) 1 tab Q4H PRN PO Pain 1-5; Start 01/26/17 at 13:00 Hydromorphone HCl (Dilaudid) 0.5 mg Q2 PRN IV Breakthrough PAIN Last administered on 01/28/17 11:36; Admin Dose 0.5 MG; Start 01/26/17 at 13:00 ISABEL SIN MD Jan 28, 2017 12:18
[2017-01-28] MEDS ORDERED: POTASSIUM CHLORIDE 20 MEQ in SOD CHLORIDE 0.9% 100 ML IVPB SCH (14:00)
[2017-01-28 21:24] VITALS: BP 153/83; RESP 20
[2017-01-28 21:30] VITALS: PULSE 98
[2017-01-29] MEDS: HYDROmorphONE 1 MG/ML SYG IV PRN ×6 (01:02→21:10)
[2017-01-29] MEDS: SOD CHLORIDE 0.9% 1,000 ML IV SCH ×4 (03:30→21:10)
[2017-01-29 07:35] VITALS: BP 148/87; RESP 18
[2017-01-29] MEDS: FAMOTIDINE 20 MG TAB PO SCH ×2 (08:57→21:10)
[2017-01-29] MEDS: DOCUSATE SODIUM 100 MG CAP PO SCH ×2 (08:57→21:10)
[2017-01-29] MEDS: ENOXAPARIN 40 MG/0.4 ML SYG SC SCH (08:58)
--- NOTE | 2017-01-29 11:05 | PN ---
Date/Time of Note Date/Time of Note DATE: 01/29/17 TIME: 11:04 Assessment/Plan VTE Prophylaxis VTE Prophylaxis Intervention: ambulation Lines/Catheters IV [facility] Type (from [facility] Peripheral IV Urinary Cath still in place: No Assessment/Plan Chief Complaint/Hosp Course 1. Acute pancreatitis,gallstone s/p laproscopic cholecystectomy POD # 2 2. Cholelithiasis s/p ERCP with balloon sweeping and dilatation of ampulla 4 3. Acute transaminitis- LFTs are trended up post operative 4. Steatohepatitis. 5. Obesity. 6. Leukocytosis, likely secondary to pancreatitis. 7. Severe hypokalemia Plan: s/p ERCP with balloon sweeping and dilatation of ampulla 01/25/2017- now S/p Laproscopic cholecystectomy , pain controlled pt LFTs are rising, still on clear liquid diet, will wait until G surg feel comfortable to advance diet ambulate pt will follow up Problems: Subjective 24 Hr Interval Summary Gastrointestinal: pain Exam/Review of Systems Vital Signs Vitals Vital Signs Date Time Temp Pulse Resp B/P Pulse Ox O2 Delivery O2 Flow Rate FiO2 01/29/17 07:35 98.8 78 18 148/87 95 01/27/17 20:00 Nasal Cannula 2.0 Intake and Output 01/28/17 01/28/17 01/29/17 15:00 23:00 07:00 Intake Total 950 ml 1030 ml 1980 ml Balance 950 ml 1030 ml 1980 ml Exam Constitutional: alert, oriented Respiratory: clear to auscultation Cardiovascular: regular rate and rhythm Gastrointestinal: soft, No distended Musculoskeletal: nl extremities to inspection Results Result Diagram: 01/28/17 0520 01/28/17 0520 Medications Medications Current Medications Sodium Chloride (NS) 1,000 ml @ 125 mls/hr Q8H IV Last administered on 04:23; Admin Dose 125 MLS/HR; Start 01/24/17 at 19:30 Ondansetron HCl (Zofran Inj) 4 mg Q6H PRN IV NAUSEA AND/OR VOMITING Last administered on 01/26/17 08:08; Admin Dose 4 MG; Start 01/24/17 at 19:30 Docusate Sodium (Colace) 100 mg BID PO Last administered on 01/29/17 08:57; Admin Dose 100 MG; Start 01/24/17 at 21:00 Enoxaparin Sodium (Lovenox) 40 mg DAILY SC Last administered on 01/29/17 08:58 ; Admin Dose 40 MG; Start 01/25/17 at 09:00 Metoclopramide HCl (Reglan) 10 mg Q6H PRN IV NAUSEA AND/OR VOMITING; Start at 02:30 Famotidine (Pepcid) 20 mg Q12 PO Last administered on 01/29/17 08:57; Admin Dose 20 MG; Start 01/25/17 at 09:00 Acetaminophen/ Hydrocodone Bitart ([place] (5/325)) 2 tab Q4H PRN PO Pain 6-10 Last administered on 01/28/17 09:41; Admin Dose 2 TAB; Start 01/26/17 at 13:00 Acetaminophen/ Hydrocodone Bitart ([place] (5/325)) 1 tab Q4H PRN PO Pain 1-5; Start 01/26/17 at 13:00 Hydromorphone HCl (Dilaudid) 0.5 mg Q2 PRN IV Breakthrough PAIN Last administered on 01/29/17 09:07; Admin Dose 0.5 MG; Start 01/26/17 at 13:00 LUPE GARCIA Jan 29, 2017 11:05
--- NOTE | 2017-01-29 12:07 | PN ---
Date/Time of Note Date/Time of Note DATE: 01/29/17 TIME: 11:59 Assessment/Plan VTE Prophylaxis VTE Prophylaxis Intervention: SCD's Lines/Catheters IV Catheter Type (from Nrs): Peripheral IV Urinary Cath still in place: No Assessment/Plan Assessment/Plan Assessment: Abdominal pain * Pancreatitis acute resolving * Choledocholithiasis/cholelithiasis S/P ERCP with balloon sweeping and dilatation of ampulla Laparoscopic cholecystectomy 01/26/2017 Obesity Hypertension controlled Plan: pain control continue present management Diet - defer to surgery Subjective 24 Hr Interval Summary Free Text/Dictation c/o incisional pain tolerating diet Exam/Review of Systems Vital Signs Vitals Vital Signs Date Time Temp Pulse Resp B/P Pulse Ox O2 Delivery O2 Flow Rate FiO2 01/29/17 07:35 98.8 78 18 148/87 95 01/27/17 20:00 Nasal Cannula 2.0 Intake and Output 01/28/17 01/28/17 01/29/17 15:00 23:00 07:00 Intake Total 950 ml 1030 ml 1980 ml Balance 950 ml 1030 ml 1980 ml Exam Constitutional: alert, oriented, well developed Head: normocephalic Neck: non-tender, supple Respiratory: clear to auscultation, diminished breath sounds, normal air movement Cardiovascular: nl pulses, regular rate and rhythm Gastrointestinal: bowel sounds, distended, moderate tenderness, soft Musculoskeletal: nl extremities to inspection, nl gait and stance Neurological: nl mental status, nl speech Skin: nl turgor, rash or lesions Results Result Diagram: 01/28/17 0520 01/28/17 0520 Medications Medications Current Medications Sodium Chloride (NS) 1,000 ml @ 125 mls/hr Q8H IV Last administered on 04:23; Admin Dose 125 MLS/HR; Start 01/24/17 at 19:30 Ondansetron HCl (Zofran Inj) 4 mg Q6H PRN IV NAUSEA AND/OR VOMITING Last administered on 01/26/17 08:08; Admin Dose 4 MG; Start 01/24/17 at 19:30 Docusate Sodium (Colace) 100 mg BID PO Last administered on 01/29/17 08:57; Admin Dose 100 MG; Start 01/24/17 at 21:00 Enoxaparin Sodium (Lovenox) 40 mg DAILY SC Last administered on 01/29/17 08:58 ; Admin Dose 40 MG; Start 01/25/17 at 09:00 Metoclopramide HCl (Reglan) 10 mg Q6H PRN IV NAUSEA AND/OR VOMITING; Start at 02:30 Famotidine (Pepcid) 20 mg Q12 PO Last administered on 01/29/17 08:57; Admin Dose 20 MG; Start 01/25/17 at 09:00 Acetaminophen/ Hydrocodone Bitart ([employer] (5/325)) 2 tab Q4H PRN PO Pain 6-10 Last administered on 01/28/17 09:41; Admin Dose 2 TAB; Start 01/26/17 at 13:00 Acetaminophen/ Hydrocodone Bitart ([employer] (5/325)) 1 tab Q4H PRN PO Pain 1-5; Start 01/26/17 at 13:00 Hydromorphone HCl (Dilaudid) 0.5 mg Q2 PRN IV Breakthrough PAIN Last administered on 01/29/17 09:07; Admin Dose 0.5 MG; Start 01/26/17 at 13:00 CHELLE SMALLWOOD MD Jan 29, 2017 12:07
[2017-01-29 20:00] VITALS: BP 136/86; RESP 19
[2017-01-30] MEDS: HYDROmorphONE 1 MG/ML SYG IV PRN ×5 (03:13→20:30)
[2017-01-30] MEDS: SOD CHLORIDE 0.9% 1,000 ML IV SCH ×3 (03:13→19:52)
[2017-01-30 05:58] LABS: ADD SCAN DIFF NO
[2017-01-30 06:01] LABS: ALBUMIN 3.5 g/dl (3.3-4.9); ALBUMIN/GLOBULIN RATIO 0.97; BILIRUBIN,INDIRECT 0.3 mg/dl (0-1.1); BILIRUBIN,TOTAL 0.3 mg/dl (0.2-1.3); CALCIUM 8.7 mg/dl (8.4-10.2); CREATININE 0.57 mg/dl (0.44-1.00); POTASSIUM 3.1 mmol/L (3.5-5.1); TOTAL PROTEIN 7.1 g/dl (6.1-8.1)
[2017-01-30] MEDS: FAMOTIDINE 20 MG TAB PO SCH ×2 (08:34→20:01)
[2017-01-30] MEDS: DOCUSATE SODIUM 100 MG CAP PO SCH ×2 (08:34→20:01)
[2017-01-30] MEDS: ENOXAPARIN 40 MG/0.4 ML SYG SC SCH (08:35)
[2017-01-30 08:39] VITALS: BP 149/99; RESP 18
[2017-01-30 09:27] LABS: BASOPHIL # 0.1 10^3/ul (0.0-0.1); BASOPHILS % 0.5 % (0.0-2.0); EOSINOPHILS # 0.3 10^3/ul (0.0-0.5); EOSINOPHILS % 2.4 % (0.0-7.0); HEMOGLOBIN 12.8 g/dl (12.0-16.0); LYMPHOCYTES # 2.5 10^3/ul (0.8-2.9); LYMPHOCYTES % 20.8 % (15.0-51.0); MEAN CORPUSCULAR HGB CONC 34.6 g/dl (32.0-37.0); MEAN CORPUSCULAR VOLUME 86.9 fl (82.0-101.0); MONOCYTES % 8.6 % (0.0-11.0); NEUTROPHIL # 7.9 10^3/ul (1.6-7.5); NEUTROPHILS % 66.5 % (39.0-77.0); PLATELET COUNT 309 10^3/UL (140-415); RED BLOOD COUNT 4.26 10^6/ul (4.20-5.40); RED CELL DISTRIBUTION WIDTH 13.7 % (11.5-14.5); WHITE BLOOD COUNT 11.8 10^3/ul (4.8-10.8)
--- NOTE | 2017-01-30 10:22 | PN ---
Date/Time of Note Date/Time of Note DATE: 01/30/17 TIME: 10:17 Assessment/Plan VTE Prophylaxis VTE Prophylaxis Intervention: SCD's Lines/Catheters IV Catheter Type (from Nrs): Peripheral IV Urinary Cath still in place: No Assessment/Plan Assessment/Plan Abdominal pain * Pancreatitis acute resolving * Choledocholithiasis/cholelithiasis S/P ERCP with balloon sweeping and dilatation of ampulla Laparoscopic cholecystectomy 01/26/2017 Obesity Hypertension controlled Plan: pain control continue present management Diet - defer to surgery Subjective 24 Hr Interval Summary Free Text/Dictation * Course reviewed with RN * patient seen and examined * still complaining mild abdominal pain * tolerating liquid diet * liver enzymes trending down except for alkaline phosphatase Exam/Review of Systems Vital Signs Vitals Vital Signs Date Time Temp Pulse Resp B/P Pulse Ox O2 Delivery O2 Flow Rate FiO2 01/30/17 08:39 97.9 70 18 149/99 95 01/27/17 20:00 Nasal Cannula 2.0 Intake and Output 01/29/17 01/29/17 01/30/17 15:00 23:00 07:00 Intake Total 900 ml 1700 ml 1540 ml Balance 900 ml 1700 ml 1540 ml Exam Constitutional: alert, oriented Psych: nl mood/affect Head: normocephalic Neck: non-tender, supple Respiratory: clear to auscultation, diminished breath sounds, normal air movement Cardiovascular: nl pulses, regular rate and rhythm Gastrointestinal: bowel sounds, non-tender, soft, No rebound or guarding Musculoskeletal: nl extremities to inspection, nl gait and stance Extremities: normal pulses Neurological: nl speech Results Result Diagram: 01/30/17 0448 01/30/17 0448 Results 24 hrs Laboratory Tests Test 01/30/17 04:48 White Blood Count 11.8 H Red Blood Count 4.26 Hemoglobin 12.8 Hematocrit 37.0 Mean Corpuscular Volume 86.9 Mean Corpuscular Hemoglobin 30.0 Mean Corpuscular Hemoglobin Concent 34.6 Red Cell Distribution Width 13.7 Platelet Count 309 # Mean Platelet Volume 10.0 Neutrophils % 66.5 Lymphocytes % 20.8 Monocytes % 8.6 Eosinophils % 2.4 Basophils % 0.5 Nucleated Red Blood Cells % 0.0 Neutrophils # 7.9 H Lymphocytes # 2.5 Monocytes # 1.0 H Eosinophils # 0.3 Basophils # 0.1 Nucleated Red Blood Cells # 0.0 Sodium Level 138 Potassium Level 3.1 L Chloride Level 105 Carbon Dioxide Level 27 Anion Gap 9 # Blood Urea Nitrogen 6 L Creatinine 0.57 Glucose Level 93 Calcium Level 8.7 Total Bilirubin 0.3 Direct Bilirubin 0.00 # Indirect Bilirubin 0.3 Aspartate Amino Transf (AST/SGOT) 69 H Alanine Aminotransferase (ALT/SGPT) 264 H Alkaline Phosphatase 137 H Total Protein 7.1 Albumin 3.5 Globulin 3.60 H Albumin/Globulin Ratio 0.97 Medications Medications Current Medications Sodium Chloride (NS) 1,000 ml @ 125 mls/hr Q8H IV Last administered on 03:13; Admin Dose 125 MLS/HR; Start 01/24/17 at 19:30 Ondansetron HCl (Zofran Inj) 4 mg Q6H PRN IV NAUSEA AND/OR VOMITING Last administered on 01/26/17 08:08; Admin Dose 4 MG; Start 01/24/17 at 19:30 Docusate Sodium (Colace) 100 mg BID PO Last administered on 01/30/17 08:34; Admin Dose 100 MG; Start 01/24/17 at 21:00 Enoxaparin Sodium (Lovenox) 40 mg DAILY SC Last administered on 01/30/17 08:35 ; Admin Dose 40 MG; Start 01/25/17 at 09:00 Metoclopramide HCl (Reglan) 10 mg Q6H PRN IV NAUSEA AND/OR VOMITING; Start at 02:30 Famotidine (Pepcid) 20 mg Q12 PO Last administered on 01/30/17 08:34; Admin Dose 20 MG; Start 01/25/17 at 09:00 Acetaminophen/ Hydrocodone Bitart ([place] (5/325)) 2 tab Q4H PRN PO Pain 6-10 Last administered on 01/28/17 09:41; Admin Dose 2 TAB; Start 01/26/17 at 13:00 Acetaminophen/ Hydrocodone Bitart ([place] (5/325)) 1 tab Q4H PRN PO Pain 1-5; Start 01/26/17 at 13:00 Hydromorphone HCl (Dilaudid) 0.5 mg Q2 PRN IV Breakthrough PAIN Last administered on 01/30/17 08:36; Admin Dose 0.5 MG; Start 01/26/17 at 13:00 CHELLE SMALLWOOD MD Jan 30, 2017 10:22
[2017-01-30] MEDS ORDERED: POTASSIUM CHLORIDE (SR) 20 MEQ TAB PO STA (13:37)
--- NOTE | 2017-01-30 19:42 | PN ---
Date/Time of Note Date/Time of Note DATE: 01/30/17 TIME: 19:41 Assessment/Plan VTE Prophylaxis VTE Prophylaxis Intervention: LMWH Lines/Catheters IV [facility] Type (from [facility]): Peripheral IV Urinary Cath still in place: No Assessment/Plan Chief Complaint/Hosp Course 1. Acute pancreatitis,gallstone s/p laproscopic cholecystectomy POD # 2 2. Cholelithiasis s/p ERCP with balloon sweeping and dilatation of ampulla 4 3. Acute transaminitis- LFTs are trended up post operative 4. Steatohepatitis. 5. Obesity. 6. Leukocytosis, likely secondary to pancreatitis. 7. Severe hypokalemia Plan: s/p ERCP with balloon sweeping and dilatation of ampulla 01/25/2017- now S/p Laproscopic cholecystectomy , pain controlled pt LFTs are now trending down, advance diet to soft ambulate pt will follow up PPX- Lovenox Problems: Subjective 24 Hr Interval Summary Gastrointestinal: pain Exam/Review of Systems Vital Signs Vitals Vital Signs Date Time Temp Pulse Resp B/P Pulse Ox O2 Delivery O2 Flow Rate FiO2 01/30/17 08:39 97.9 70 18 149/99 95 01/27/17 20:00 Nasal Cannula 2.0 Intake and Output 01/29/17 01/29/17 01/30/17 15:00 23:00 07:00 Intake Total 900 ml 1700 ml 1540 ml Balance 900 ml 1700 ml 1540 ml Exam Constitutional: alert Respiratory: clear to auscultation Cardiovascular: regular rate and rhythm Gastrointestinal: soft, No distended Musculoskeletal: nl extremities to inspection Results Result Diagram: 01/30/17 0448 01/30/17 0448 Results 24 hrs Laboratory Tests Test 01/30/17 04:48 White Blood Count 11.8 H Red Blood Count 4.26 Hemoglobin 12.8 Hematocrit 37.0 Mean Corpuscular Volume 86.9 Mean Corpuscular Hemoglobin 30.0 Mean Corpuscular Hemoglobin Concent 34.6 Red Cell Distribution Width 13.7 Platelet Count 309 # Mean Platelet Volume 10.0 Neutrophils % 66.5 Lymphocytes % 20.8 Monocytes % 8.6 Eosinophils % 2.4 Basophils % 0.5 Nucleated Red Blood Cells % 0.0 Neutrophils # 7.9 H Lymphocytes # 2.5 Monocytes # 1.0 H Eosinophils # 0.3 Basophils # 0.1 Nucleated Red Blood Cells # 0.0 Sodium Level 138 Potassium Level 3.1 L Chloride Level 105 Carbon Dioxide Level 27 Anion Gap 9 # Blood Urea Nitrogen 6 L Creatinine 0.57 Glucose Level 93 Calcium Level 8.7 Total Bilirubin 0.3 Direct Bilirubin 0.00 # Indirect Bilirubin 0.3 Aspartate Amino Transf (AST/SGOT) 69 H Alanine Aminotransferase (ALT/SGPT) 264 H Alkaline Phosphatase 137 H Total Protein 7.1 Albumin 3.5 Globulin 3.60 H Albumin/Globulin Ratio 0.97 Medications Medications Current Medications Sodium Chloride (NS) 1,000 ml @ 125 mls/hr Q8H IV Last administered on 12:37; Admin Dose 125 MLS/HR; Start 01/24/17 at 19:30 Ondansetron HCl (Zofran Inj) 4 mg Q6H PRN IV NAUSEA AND/OR VOMITING Last administered on 01/26/17 08:08; Admin Dose 4 MG; Start 01/24/17 at 19:30 Docusate Sodium (Colace) 100 mg BID PO Last administered on 01/30/17 08:34; Admin Dose 100 MG; Start 01/24/17 at 21:00 Enoxaparin Sodium (Lovenox) 40 mg DAILY SC Last administered on 01/30/17 08:35 ; Admin Dose 40 MG; Start 01/25/17 at 09:00 Metoclopramide HCl (Reglan) 10 mg Q6H PRN IV NAUSEA AND/OR VOMITING; Start at 02:30 Famotidine (Pepcid) 20 mg Q12 PO Last administered on 01/30/17 08:34; Admin Dose 20 MG; Start 01/25/17 at 09:00 Acetaminophen/ Hydrocodone Bitart ([place] (5/325)) 2 tab Q4H PRN PO Pain 6-10 Last administered on 01/28/17 09:41; Admin Dose 2 TAB; Start 01/26/17 at 13:00 Acetaminophen/ Hydrocodone Bitart ([place] (5/325)) 1 tab Q4H PRN PO Pain 1-5; Start 01/26/17 at 13:00 Hydromorphone HCl (Dilaudid) 0.5 mg Q2 PRN IV Breakthrough PAIN Last administered on 01/30/17 16:15; Admin Dose 0.5 MG; Start 01/26/17 at 13:00 LUPE GARCIA Jan 30, 2017 19:42
[2017-01-30 20:50] VITALS: BP 148/90; RESP 21
[2017-01-31] MEDS: HYDROmorphONE 1 MG/ML SYG IV PRN ×4 (00:08→11:30)
[2017-01-31] MEDS: SOD CHLORIDE 0.9% 1,000 ML IV SCH ×2 (03:19→11:30)
[2017-01-31 05:10] LABS: ADD SCAN DIFF NO
[2017-01-31 05:23] LABS: BASOPHILS % 0.3 % (0.0-2.0); EOSINOPHILS # 0.3 10^3/ul (0.0-0.5); EOSINOPHILS % 2.6 % (0.0-7.0); HEMATOCRIT 37.9 % (37.0-47.0); HEMOGLOBIN 12.7 g/dl (12.0-16.0); LYMPHOCYTES # 3.1 10^3/ul (0.8-2.9); LYMPHOCYTES % 25.9 % (15.0-51.0); MEAN CORPUSCULAR HGB CONC 33.5 g/dl (32.0-37.0); MEAN CORPUSCULAR VOLUME 86.5 fl (82.0-101.0); MEAN PLATELET VOLUME 9.8 fl (7.4-10.4); MONOCYTE # 0.9 10^3/ul (0.3-0.9); MONOCYTES % 7.9 % (0.0-11.0); NEUTROPHIL # 7.3 10^3/ul (1.6-7.5); NEUTROPHILS % 62.1 % (39.0-77.0); PLATELET COUNT 320 10^3/UL (140-415); RED BLOOD COUNT 4.38 10^6/ul (4.20-5.40); RED CELL DISTRIBUTION WIDTH 13.5 % (11.5-14.5); WHITE BLOOD COUNT 11.8 10^3/ul (4.8-10.8)
[2017-01-31 05:35] LABS: BILIRUBIN,INDIRECT 0.4 mg/dl (0-1.1); BILIRUBIN,TOTAL 0.4 mg/dl (0.2-1.3); CREATININE 0.61 mg/dl (0.44-1.00); POTASSIUM 3.4 mmol/L (3.5-5.1)
[2017-01-31 05:36] LABS: ALBUMIN 3.6 g/dl (3.3-4.9); ALBUMIN/GLOBULIN RATIO 1.02; TOTAL PROTEIN 7.1 g/dl (6.1-8.1)
[2017-01-31 08:10] VITALS: BP 138/84; RESP 19
[2017-01-31] MEDS: FAMOTIDINE 20 MG TAB PO SCH (08:30)
[2017-01-31] MEDS: DOCUSATE SODIUM 100 MG CAP PO SCH (08:30)
[2017-01-31] MEDS: ENOXAPARIN 40 MG/0.4 ML SYG SC SCH (08:31)
[2017-01-31] MEDS ORDERED: POTASSIUM CHLORIDE (SR) 20 MEQ TAB PO STA (10:23)
--- NOTE | 2017-01-31 11:21 | PDOCDIS ---
Discharge Instructions CONDITION Patient Condition: Good HOME CARE INSTRUCTIONS: Diet Instructions: Reduced Calorie ACTIVITY: Activity Restrictions: No Restrictions FOLLOW UP/APPOINTMENTS Appointments F/U WITH YOUR PCP IN 1-2 WEEKS, F/U WITH DR ZAC LÓPEZ IN 2-3 WEEKS LUPE GARCIA Jan 31, 2017 11:21
--- NOTE | 2017-01-31 11:37 | RADRPT ---
Vent Rate: 78 bpm RR Interval: 0 msec GA Interval: 156 msec QRS Duration: 88 msec QT Interval: 402 msec QTC Interval: 458 msec P-R-T [place]: 36 - 21 - 29 degrees Normal sinus rhythm Normal ECG Electronically Signed By: Eleazar Gomes [id number]
[2017-01-31] MEDS ORDERED: HYDR-906 PO (11:45)
--- NOTE | 2017-01-31 12:37 | PN ---
Date/Time of Note Date/Time of Note DATE: 01/29/17 TIME: 12:34 Assessment/Plan Lines/Catheters IV Catheter Type (from Nrs): Peripheral IV [place] in Place (from Nrs): No Assessment/Plan Chief Complaint/Hosp Course 1. Abdominal pain 2nd acute pancreatitis 2nd gallstones s/p ERCP stone removal and dilation 01/25. s/p 3 port lap cholecystectomy 01/26 -judicious fluid management. -pain control -oob/ambulate 2. BMI of 49 with morbid obesity. Patient is highly encouraged to optimize her nutrition and exercise to improve her overall health status. 3. Hypertension. The patient is encouraged to optimize nutrition and medication and weight loss. 4. Fatty liver as above s/p liver bx -await path 5. Transaminitis secondary choledocholithiasis s/p ERCP. Improving -monitor 6. Positive urinalysis with possible urinary tract infection s/p abx Thank you Late entry 01/29 Problems: Subjective 24 Hr Interval Summary s/p ERCP and stone removal with dilation 01/25. s/p 3 port lap tori 01/26. Abdominal pain improving. No vomiting. Min nausea. No cp/sob. No cough. No sz. No bleeding. Min bloating. No rash. Exam/Review of Systems Vital Signs Vitals Vital Signs Date Time Temp Pulse Resp B/P Pulse Ox O2 Delivery O2 Flow Rate FiO2 01/31/17 08:10 98.2 74 19 138/84 96 01/27/17 20:00 Nasal Cannula 2.0 Intake and Output 01/30/17 01/30/17 01/31/17 14:59 22:59 06:59 Intake Total 700 ml 1790 ml 1580 ml Balance 700 ml 1790 ml 1580 ml Exam Free Text/Dictation GENERAL: Morbidly obese, but no acute distress. HEENT: Pupils equal, reactive. No scleral icterus. Mucous membranes are moist. NECK: Supple, no JVD. PULMONARY: Normal respiratory effort. No wheezing. CARDIAC: S1, S2 present. ABDOMEN: Soft, min tender. No rebound, no guarding, not rigid. EXTREMITIES: No edema. VASCULAR: Cap refill less than 2 seconds. NEUROLOGIC: Alert, oriented, moves all 4 extremities grossly. Results Result Diagram: 01/31/17 0425 01/31/17 0425 ANA PAULA LÓPEZ MD Jan 31, 2017 12:37
--- NOTE | 2017-01-31 12:37 | PN ---
Date/Time of Note Date/Time of Note DATE: 01/30/17 TIME: 12:37 Assessment/Plan Lines/Catheters IV Catheter Type (from Nrs): Peripheral IV [place] in Place (from Nrs): No Assessment/Plan Chief Complaint/Hosp Course 1. Abdominal pain 2nd acute pancreatitis 2nd gallstones s/p ERCP stone removal and dilation 01/25. s/p 3 port lap cholecystectomy 01/26 -judicious fluid management. -pain control -oob/ambulate 2. BMI of 49 with morbid obesity. Patient is highly encouraged to optimize her nutrition and exercise to improve her overall health status. 3. Hypertension. The patient is encouraged to optimize nutrition and medication and weight loss. 4. Fatty liver as above s/p liver bx -await path 5. Transaminitis secondary choledocholithiasis s/p ERCP. Improving -monitor 6. Positive urinalysis with possible urinary tract infection s/p abx Thank you Late entry 01/30 Problems: Subjective 24 Hr Interval Summary s/p ERCP and stone removal with dilation 01/25. s/p 3 port lap tori 01/26. Abdominal pain improving. No vomiting. Min nausea. No cp/sob. No cough. No sz. No bleeding. Min bloating. No rash. Exam/Review of Systems Vital Signs Vitals Vital Signs Date Time Temp Pulse Resp B/P Pulse Ox O2 Delivery O2 Flow Rate FiO2 01/31/17 08:10 98.2 74 19 138/84 96 01/27/17 20:00 Nasal Cannula 2.0 Intake and Output 01/30/17 01/30/17 01/31/17 14:59 22:59 06:59 Intake Total 700 ml 1790 ml 1580 ml Balance 700 ml 1790 ml 1580 ml Exam Free Text/Dictation GENERAL: Morbidly obese, but no acute distress. HEENT: Pupils equal, reactive. No scleral icterus. Mucous membranes are moist. NECK: Supple, no JVD. PULMONARY: Normal respiratory effort. No wheezing. CARDIAC: S1, S2 present. ABDOMEN: Soft, min tender. No rebound, no guarding, not rigid. EXTREMITIES: No edema. VASCULAR: Cap refill less than 2 seconds. NEUROLOGIC: Alert, oriented, moves all 4 extremities grossly. Results Result Diagram: 01/31/17 0425 01/31/17 0425 ANA PAULA LÓPEZ MD Jan 31, 2017 12:37
--- NOTE | 2017-01-31 12:38 | PN ---
Date/Time of Note Date/Time of Note DATE: 01/31/17 TIME: 12:37 Assessment/Plan Lines/Catheters IV Catheter Type (from [facility]): Peripheral IV De [place] in Place (from [facility]): No Assessment/Plan Chief Complaint/Hosp Course 1. Abdominal pain 2nd acute pancreatitis 2nd gallstones s/p ERCP stone removal and dilation 01/25. s/p 3 port lap cholecystectomy 01/26 -dc planning -oob/ambulate 2. BMI of 49 with morbid obesity. Patient is highly encouraged to optimize her nutrition and exercise to improve her overall health status. 3. Hypertension. The patient is encouraged to optimize nutrition and medication and weight loss. 4. Fatty liver as above s/p liver bx -await path 5. Transaminitis secondary choledocholithiasis s/p ERCP. Improving -monitor 6. Positive urinalysis with possible urinary tract infection s/p abx Thank you Problems: Subjective 24 Hr Interval Summary s/p ERCP and stone removal with dilation 01/25. s/p 3 port lap tori 01/26. Abdominal pain improving. No vomiting. Min nausea. No cp/sob. No cough. No sz. No bleeding. Min bloating. No rash. Exam/Review of Systems Vital Signs Vitals Vital Signs Date Time Temp Pulse Resp B/P Pulse Ox O2 Delivery O2 Flow Rate FiO2 01/31/17 08:10 98.2 74 19 138/84 96 01/27/17 20:00 Nasal Cannula 2.0 Intake and Output 01/30/17 01/30/17 01/31/17 14:59 22:59 06:59 Intake Total 700 ml 1790 ml 1580 ml Balance 700 ml 1790 ml 1580 ml Exam Free Text/Dictation GENERAL: Morbidly obese, but no acute distress. HEENT: Pupils equal, reactive. No scleral icterus. Mucous membranes are moist. NECK: Supple, no JVD. PULMONARY: Normal respiratory effort. No wheezing. CARDIAC: S1, S2 present. ABDOMEN: Soft, min tender. No rebound, no guarding, not rigid. EXTREMITIES: No edema. VASCULAR: Cap refill less than 2 seconds. NEUROLOGIC: Alert, oriented, moves all 4 extremities grossly. Results Result Diagram: 01/31/17 0425 01/31/17 0425 ANA PAULA LÓPEZ MD Jan 31, 2017 12:38
--- NOTE | 2017-01-31 15:50 | PN ---
Date/Time of Note Date/Time of Note DATE: 01/31/17 TIME: 15:47 Assessment/Plan VTE Prophylaxis VTE Prophylaxis Intervention: SCD's Lines/Catheters IV [facility]ter Type (from [facility]): Peripheral IV Urinary Cath still in place: No Assessment/Plan Assessment/Plan Abdominal pain * Pancreatitis acute resolved * Choledocholithiasis/cholelithiasis S/P ERCP with balloon sweeping and dilatation of ampulla Laparoscopic cholecystectomy 01/26/2017 Obesity Hypertension controlled Plan: Stable for outpatient management Subjective 24 Hr Interval Summary Free Text/Dictation * Course reviewed with RN * patient seen and examined * Denies abdominal pain ,tolerating diet Exam/Review of Systems Vital Signs Vitals Vital Signs Date Time Temp Pulse Resp B/P Pulse Ox O2 Delivery O2 Flow Rate FiO2 01/31/17 08:10 98.2 74 19 138/84 96 01/27/17 20:00 Nasal Cannula 2.0 Intake and Output 01/30/17 01/30/17 01/31/17 15:00 23:00 07:00 Intake Total 700 ml 1790 ml 1580 ml Balance 700 ml 1790 ml 1580 ml Exam Constitutional: alert, oriented Psych: nl mood/affect Head: normocephalic Eyes: PERRL, nl conjunctiva, nl sclera Neck: non-tender, supple Respiratory: clear to auscultation, diminished breath sounds, normal air movement Cardiovascular: nl pulses, regular rate and rhythm Gastrointestinal: bowel sounds, non-tender, soft, No rebound or guarding Musculoskeletal: nl extremities to inspection, nl gait and stance Extremities: normal pulses Neurological: nl speech, nl strength Skin: nl turgor, rash or lesions Results Result Diagram: 01/31/17 0425 01/31/17 0425 Results 24 hrs Laboratory Tests Test 01/31/17 04:25 White Blood Count 11.8 H Red Blood Count 4.38 Hemoglobin 12.7 Hematocrit 37.9 Mean Corpuscular Volume 86.5 Mean Corpuscular Hemoglobin 29.0 Mean Corpuscular Hemoglobin Concent 33.5 Red Cell Distribution Width 13.5 Platelet Count 320 Mean Platelet Volume 9.8 Neutrophils % 62.1 Lymphocytes % 25.9 Monocytes % 7.9 Eosinophils % 2.6 Basophils % 0.3 Nucleated Red Blood Cells % 0.0 Neutrophils # 7.3 Lymphocytes # 3.1 H Monocytes # 0.9 Eosinophils # 0.3 Basophils # 0.0 Nucleated Red Blood Cells # 0.0 Sodium Level 137 Potassium Level 3.4 L Chloride Level 106 Carbon Dioxide Level 26 Anion Gap 8 Blood Urea Nitrogen 5 L Creatinine 0.61 Glucose Level 92 Calcium Level 9.0 Total Bilirubin 0.4 Direct Bilirubin 0.00 Indirect Bilirubin 0.4 Aspartate Amino Transf (AST/SGOT) 59 H Alanine Aminotransferase (ALT/SGPT) 198 H Alkaline Phosphatase 119 Total Protein 7.1 Albumin 3.6 Globulin 3.50 H Albumin/Globulin Ratio 1.02 Medications Medications Current Medications Sodium Chloride (NS) 1,000 ml @ 125 mls/hr Q8H IV Last administered on 03:19; Admin Dose 125 MLS/HR; Start 01/24/17 at 19:30 Ondansetron HCl (Zofran Inj) 4 mg Q6H PRN IV NAUSEA AND/OR VOMITING Last administered on 01/26/17 08:08; Admin Dose 4 MG; Start 01/24/17 at 19:30 Docusate Sodium (Colace) 100 mg BID PO Last administered on 01/31/17 08:30; Admin Dose 100 MG; Start 01/24/17 at 21:00 Enoxaparin Sodium (Lovenox) 40 mg DAILY SC Last administered on 01/31/17 08:31 ; Admin Dose 40 MG; Start 01/25/17 at 09:00 Metoclopramide HCl (Reglan) 10 mg Q6H PRN IV NAUSEA AND/OR VOMITING; Start at 02:30 Famotidine (Pepcid) 20 mg Q12 PO Last administered on 01/31/17 08:30; Admin Dose 20 MG; Start 01/25/17 at 09:00 Acetaminophen/ Hydrocodone Bitart ([place] (5/325)) 2 tab Q4H PRN PO Pain 6-10 Last administered on 01/28/17 09:41; Admin Dose 2 TAB; Start 01/26/17 at 13:00 Acetaminophen/ Hydrocodone Bitart ([place] (5/325)) 1 tab Q4H PRN PO Pain 1-5; Start 01/26/17 at 13:00 Hydromorphone HCl (Dilaudid) 0.5 mg Q2 PRN IV [place]through PAIN Last administered on 01/31/17 11:30; Admin Dose 0.5 MG; Start 01/26/17 at 13:00 CHELLE SMALLWOOD MD Jan 31, 2017 15:50
--- NOTE | 2017-02-01 03:46 | DS ---
DATE OF ADMISSION: 01/25/2017 DATE OF DISCHARGE: 01/31/2017 DISCHARGE DIAGNOSES: 1. Acute gallstone pancreatitis, status post ERCP and laparoscopic cholecystectomy, now stable. 2. Acute transaminitis, now resolved. 3. Fatty liver secondary to obesity. Patient advised for lifestyle changes. 4. Leukocytosis secondary to pancreatitis. 5. Hypokalemia, repleted. 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 The patient presents with abdominal pain. She was found t o have gallstone pancreatitis. The patient was seen by both surgery and GI. The patient had ERCP w ith balloon sweeping and dilation of the ampule. She had normal intraductal stones. The patient th en underwent a laparoscopic cholecystectomy. The postop course was complicated by transaminitis chitra t did ultimately trend down. The patient's diet was slowly advanced to a soft diet. The patient's abdominal pain also did improve. Her lipase did resolve to normal values. The patient was cleared for discharge per surgery. On the day of discharge, the patient's vitals, labs, and physical exam w ere stable. She had no further acute complaints except for abdominal pain that she had been having, but that abdominal pain did improve. The patient's physical exam was stable on day of discharge, a nd her questions were answered. CONDITION ON DISCHARGE: Stable. DISPOSITION: To home. MEDICATIONS: The patient was given a prescription for [place] 5/325, one tab p.o. q. 4 hours p.r.n. f or pain. The patient was to continue her other home medications. FOLLOWUP: The patient is to follow up with her PCP in 1 to [address] Sebastian Winston [facility] in 2 to 3 weeks. Greater than 30 minutes was spent coordinating discharge of patient. Dictated By: LUPE GARCIA MD BS/NTS Conf#: [id number] DID#: [id number]
== END 2017-01-31 16:02 | disposition home or self-care (01) | DRG 418 ==
LOC: FTE 12:59 → PP2 01-25 02:17
PROVIDERS: ADMIT Family Medicine; ATTEND Family Medicine
PROC: 0F7C8ZZ Dilation of Ampulla of Vater, Via Natural or Artificial Opening Endoscopic (ICD-10-PCS; 2017-01-25)
PROC: BF141ZZ Fluoroscopy of Gallbladder, Bile Ducts and Pancreatic Ducts using Low Osmolar Contrast (ICD-10-PCS; 2017-01-25)
PROC: 0FB04ZX Excision of Liver, Percutaneous Endoscopic Approach, Diagnostic (ICD-10-PCS; 2017-01-26)
PROC: 0FT44ZZ Resection of Gallbladder, Percutaneous Endoscopic Approach (ICD-10-PCS; principal; 2017-01-26 10:00)
DX: K85.10 Biliary acute pancreatitis without necrosis or infection (principal); N39.0 Urinary tract infection, site not specified; K75.81 Nonalcoholic steatohepatitis (NASH); Z68.42 Body mass index [BMI] 45.0-49.9, adult; K80.20 Calculus of gallbladder without cholecystitis without obstruction; K80.50 Calculus of bile duct without cholangitis or cholecystitis without obstruction; K80.80 Other cholelithiasis without obstruction; R94.5 Abnormal results of liver function studies; E87.6 Hypokalemia; R74.0 Nonspecific elevation of levels of transaminase and lactic acid dehydrogenase [LDH]; E66.9 Obesity, unspecified
CPT/HCPCS: 36415; 71010; 74181; 74330; 76705; 80048; 80053; 80061; 80076; 81001; 81003; 83036; 83690; 83735; 84132; 84443; 84703; 85025; 85610; 85730; 87040; 87086; 88304; 88307; 88313; 93005; 96361; 96374; 96375; 96376; C9113; J0330; J0690; J0696; J1100; J1170; J1650; J1885; J2250; J2270; J2405; J2710; J2765; J3010; J3480; J7030

== ENCOUNTER 2017-02-04 14:43 | Outpatient (CLI) | payer OTHER ==
[~2017-02-04] VITALS: Ht 167.6 cm; Wt 128.2 kg
[~2017-02-04 14:43] MED LIST changes: -BACTDS PO; -DOXY100T20 PO; +HYDR-906 PO; +LISI10TA2 PO
[2017-02-04 14:52] VITALS: BP 122/78; PULSE 74; RESP 18; Ht 167.6 cm; Wt 128.2 kg
--- NOTE | 2017-02-04 16:14 | PN ---
Date/Time of Note Date/Time of Note DATE: 02/04/17 TIME: 16:11 Outpatient Progress Note Chief Complaint Abdominal pain/status post cholecystectomy/morbid obesity HPI Abdominal pain/patient has mild to moderate abdominal discomfort, pain relieved with the medication, no fever chill, Status post laparoscopic cholecystectomy/patient has a gallstone, patient had laparoscopic cholecystectomy, no nausea or vomiting, no fever chill, jaundice, Morbid obesity/patient morbidly obese, no history of thyroid problem, Review of Systems Const: No Fever, no chills, no Wt. loss, no Fatigue, normal appetite, no diaphoresis. Eyes: No pain, no discharge, no redness, no visual change, no foreign body. ENT: No pain, no bleeding, no congestion, no sore throat, no dysphagia, no discharge or rhinitis. Lymph: No adenopathy, no tender nodes, no lymphedema. Resp: No SOB, no cough, no sputum, no wheezing, no chest pain. CV: No chest pain, no palpitaions, no LAMBERT, no PND, no edema. GI: Normal appetite, mild abdominal pain, no nausea, no vomiting, no diarrhea, no blood, no constipation. : No frequency, no urgency, no dysuria, no hematuria, no flank pain, no discharge, no bleeding. Musc: No bone/joint pain, no back pain, no neck pain, no knee pain, no restricted ROM. Skin: No rash, no skin lesions, no erythema, no laceration, no bruising, no pruritus. Neuro: No SPAULDING, no dizziness, no syncope, no seizure, no focal-weakness. Endo: No polyuria, no polydypsia, no dry-skin, no temp-intolerance. Psych: No hallucinations, no depression, no anxiety, no suicidal ideation. Ext: No edema, no pain, no ulcer, no weakness. Physical Exam Vital Signs Date Time Temp Pulse Resp B/P Pulse Ox O2 Delivery O2 Flow Rate FiO2 02/04/17 14:52 98.0 74 18 122/78 100 Room Air General Appearance: A [36 year-old female [who appears well-developed, well- nourished, in no acute distress. HEENT: Head normocephalic, atraumatic. Pupils equal, round, reactive to light and accommodate. Sclerae are no jaundice. Nasal turbinates pink without erythema or nasal discharge. Mucous membranes pink and moist without lesions. Oropharynx clear without any exudate or discharge. NECK: Supple. Trachea midline, No thyromegaly, No cervical lymphadenopathy, No mass, No carotid bruits, No JVD, Carotid pulses 2+ bilaterally. PULMONARY: Clear to auscultaion bilaterally, No retractions, Chest expansion symmetric bilaterally, no rales, no ronchi, no dulness on percussion. CARDIAC: Normal SI and S2, Regular rate and rythm, no murmur, gallop, or rub. GASTROINTESTINAL: Abdomen is soft, non-tender, Non Rigid, No distention, Positive bowel sounds x4 quadrants, Liver normal. Status post laparoscopic cholecystectomy, no bleeding no redness no cellulitis or discharge, SKIN: Warm, dry, no rash, no bruise, no echmosis. EXTREMITIES: Bilateral lower extremities normal, no edema, no phlabitus, pulse palpable, no contracture. MUSCULOSKELETAL: Spine Normal, Non-tender, Normal range of motion, No swelling, no deformity, no clubbing, or cyanosis, the patient has no edema to bilateral lower extremities, dorsalis pedis pulses palpable bilaterally. NEUROLOGIC: The patient is awake, alert, oriented, responding to yes/no questions appropriately, moving all extremities, cranial nerve intact, normal strenght, normal power, normal coordination, normal gait. Allergies Coded Allergies: No Known Allergy (Unverified , 01/24/17) PMH Gallstones/cholecystectomy laparoscopic Social Hx No smoking or drinking, Family Hx Noncontributory Patient History: Cardiac disorder 33 FATHER Endocrine and metabolic disease 32 MOTHER Hypertension 33 FATHER Assessment/Plan Impression Abdominal pain/status post laparoscopic cholecystectomy/morbid obesity Plan Patient has [id number] pain, patient has pain medication, Patient education done, Patient advised to lose weight, increase activity, CBC CMP, Medications Home Meds Active Scripts Hydrocodone/Acetaminophen ([place] 5-325 Tablet) 1 Each Tablet, 1 EACH PO Q4 for PAIN, #40 TAB Prov:LUPE GARCIA 01/31/17 Hydrocodone Bit-Acetaminophen (Hydrocodone Bit-APAP) 5-325MG Tablet, 2 TAB PO Q6H Y for SEVERE PAIN LEVEL 7-10, #30 TAB Prov:MEHRAN GARCIA 11/25/16 Saccharomyces Boulardii* (Florastor*) 250 Mg Cap, 500 MG PO BID, #24 CAP Prov:MEHRAN GARCIA 11/25/16 Ibuprofen* (Motrin*) 600 Mg Tab, 600 MG PO Q6H Y for PAIN AND OR ELEVATED TEMP, #30 TAB Prov:SESAR RICHARDSON [employer] 11/23/16 Reported Medications Lisinopril* (Lisinopril*) 10 Mg Tablet, 10 MG PO DAILY, #30 TAB 01/24/17 Discontinued Scripts Sulfamethoxazole-Trimethoprim* (Bactrim* DS) 800-160 Mg Tab, 1 TAB PO BID, #24 TAB Prov:MEHRAN GARCIA 11/25/16 Doxycycline Hyclate* (Doxycycline Hyclate*) 100 Mg Tablet., 100 MG PO BID for 12 Days, TAB Prov:MEHRAN GARCIA 11/25/16 MARTIN SIN MD Feb 04, 2017 16:14
== END 2017-02-04 16:12 | disposition home or self-care (01) ==
LOC: DCC 14:43
PROVIDERS: ATTEND Internal Medicine
DX: R10.9 Unspecified abdominal pain (principal); E66.01 Morbid (severe) obesity due to excess calories; Z98.890 Other specified postprocedural states; Z90.49 Acquired absence of other specified parts of digestive tract

== ENCOUNTER 2017-02-17 13:43 | Outpatient (CLI) | payer OTHER ==
[~2017-02-17] VITALS: Ht 167.6 cm; Wt 129.1 kg
[2017-02-17 13:46] VITALS: BP 132/80; PULSE 69; RESP 18; Ht 167.6 cm; Wt 129.1 kg
--- NOTE | 2017-02-17 14:25 | PN ---
Date/Time of Note Date/Time of Note DATE: 02/17/17 TIME: 14:20 Outpatient Progress Note Chief Complaint Back pain/status post laparoscopic cholecystectomy/morbid obesity HPI Back pain/patient has minimal back discomfort, mostly in the center, no nausea or vomiting, no loss of bladder or bowel control, Status post cholecystectomy/patient had laparoscopic cholecystectomy, patient has slight pain around the operative site, no fever chill, Morbid obesity/patient morbidly obese, no history of hypothyroidism, Review of Systems Const: No Fever, no chills, no Wt. loss, no Fatigue, normal appetite, no diaphoresis. Eyes: No pain, no discharge, no redness, no visual change, no foreign body. ENT: No pain, no bleeding, no congestion, no sore throat, no dysphagia, no discharge or rhinitis. Lymph: No adenopathy, no tender nodes, no lymphedema. Resp: No SOB, no cough, no sputum, no wheezing, no chest pain. CV: No chest pain, no palpitaions, no LAMBERT, no PND, no edema. GI: Normal appetite, minimal pain, no nausea, no vomiting, no diarrhea, no blood , no constipation. : No frequency, no urgency, no dysuria, no hematuria, no flank pain, no discharge, no bleeding. Musc: Minimal back pain, no neck pain, no knee pain, no restricted ROM. Skin: No rash, no skin lesions, no erythema, no laceration, no bruising, no pruritus. Neuro: No SPAULDING, no dizziness, no syncope, no seizure, no focal-weakness. Endo: No polyuria, no polydypsia, no dry-skin, no temp-intolerance. Psych: No hallucinations, no depression, no anxiety, no suicidal ideation. Ext: No edema, no pain, no ulcer, no weakness. Physical Exam Vital Signs Date Time Temp Pulse Resp B/P Pulse Ox O2 Delivery O2 Flow Rate FiO2 02/17/17 13:46 97.7 69 18 132/80 97 Room Air General Appearance: A 36 year-old female who appears well-developed, well- nourished, in no acute distress. HEENT: Head normocephalic, atraumatic. Pupils equal, round, reactive to light and accommodate. Sclerae are no jaundice. Nasal turbinates pink without erythema or nasal discharge. Mucous membranes pink and moist without lesions. Oropharynx clear without any exudate or discharge. NECK: Supple. Trachea midline, No thyromegaly, No cervical lymphadenopathy, No mass, No carotid bruits, No JVD, Carotid pulses 2+ bilaterally. PULMONARY: Clear to auscultaion bilaterally, No retractions, Chest expansion symmetric bilaterally, no rales, no ronchi, no dulness on percussion. CARDIAC: Normal SI and S2, Regular rate and rythm, no murmur, gallop, or rub. GASTROINTESTINAL: Abdomen is soft, n minimal discomfort, and-tender around epigastric area,, Non Rigid, No distention, Positive bowel sounds x4 quadrants, Liver normal. SKIN: Warm, dry, no rash, no bruise, no echmosis. EXTREMITIES: Bilateral lower extremities normal, no edema, no phlabitus, pulse palpable, no contracture. MUSCULOSKELETAL: Spine Normal, Non-tender, Normal range of motion, No swelling, no deformity, no clubbing, or cyanosis, the patient has no edema to bilateral lower extremities, dorsalis pedis pulses palpable bilaterally. NEUROLOGIC: The patient is awake, alert, oriented, responding to yes/no questions appropriately, moving all extremities, cranial nerve intact, normal strenght, normal power, normal coordination, normal gait. Allergies Coded Allergies: No Known Allergy (Unverified , 01/24/17) PMH No change Social Hx No change Family Hx Impression Back pain/status post laparoscopic cholecystectomy/morbid obesity Plan Continue all medications supportive care, continue Motrin as needed for pain, Do not do heavy lifting for a few weeks more, Primary care physician to see , 2-3 weeks, The patient back pain persist to let the primary care physician know, Patient History: Cardiac disorder 33 FATHER Endocrine and metabolic disease 32 MOTHER Hypertension 33 FATHER Medications Home Meds Active Scripts Saccharomyces Boulardii* (Florastor*) 250 Mg Cap, 500 MG PO BID, #24 CAP Prov:MEHRAN GARCIA 11/25/16 Ibuprofen* (Motrin*) 600 Mg Tab, 600 MG PO Q6H Y for PAIN AND OR ELEVATED TEMP, #30 TAB Prov:SESAR RICHARDSON NP 11/23/16 Reported Medications Lisinopril* (Lisinopril*) 10 Mg Tablet, 10 MG PO DAILY, #30 TAB 01/24/17 Discontinued Scripts Hydrocodone/Acetaminophen ([place] 5-325 Tablet) 1 Each Tablet, 1 EACH PO Q4 for PAIN, #40 TAB Prov:LUPE GARCIA 01/31/17 Hydrocodone Bit-Acetaminophen (Hydrocodone Bit-APAP) 5-325MG Tablet, 2 TAB PO Q6H Y for SEVERE PAIN LEVEL 7-10, #30 TAB Prov:MEHRAN GARCIA 11/25/16 MARITN SIN MD February 17, 2017 14:25
== END 2017-02-17 16:40 | disposition home or self-care (01) ==
LOC: DCC 13:43
PROVIDERS: ATTEND Internal Medicine
DX: M54.9 Dorsalgia, unspecified (principal); E66.01 Morbid (severe) obesity due to excess calories; Z90.49 Acquired absence of other specified parts of digestive tract

== ENCOUNTER 2017-04-24 22:56 | Emergency (ER) | payer SELFPAY ==
[~2017-04-24] VITALS: Ht 165.1 cm; Wt 132.5 kg
[~2017-04-24 22:56] MED LIST changes: -HYDR-3498 PO; -HYDR-906 PO
[2017-04-24 23:01] VITALS: Ht 165.1 cm; Wt 132.5 kg
[2017-04-25] MEDS ORDERED: IBUPROFEN 600 MG TAB PO ONE
--- NOTE | 2017-04-25 00:51 | RADRPT ---
PROCEDURE: Left foot. CLINICAL INDICATION: Pain. TECHNIQUE: Three views including AP, lateral and oblique views of the left foot were obtained. T he images were reviewed on a PACS workstation. COMPARISON: None. FINDINGS: There is no fracture, dislocation or bone destruction. The joint spaces are within normal limits. Bone mineralization is within normal limits. There is no radiopaque foreign body or abnormal calcif ication. There are small plantar and dorsal calcaneal spurs. IMPRESSION: No evidence of fracture. Small calcaneal spurs. .Jayme De Leon MD, MD Date Time Electronically viewed and signed by .Jayme De Leon MD, on 04/25/2017 00:51 .T/
--- NOTE | 2017-04-25 00:53 | RADRPT ---
PROCEDURE: Left ankle. CLINICAL INDICATION: Pain. TECHNIQUE: Three views including AP, lateral and oblique views of the left ankle were performed. COMPARISON: None. FINDINGS: There is no fracture, dislocation or bone destruction. The ankle mortise is within normal limits. Bone mineralization is within normal limits. There is no radiopaque foreign body or abnormal calcif ication. There are small plantar and dorsal calcaneal spurs. IMPRESSION: No evidence of fracture. Small calcaneal spurs. .Jayme De Leon MD, Date Time Electronically viewed and signed by .Jayme De Leon MD, on 04/25/2017 00:52 .T/
[2017-04-25] MEDS ORDERED: IBUP-1542 PO (01:42)
--- NOTE | 2017-04-25 02:21 | ERD ---
ER Documentation Chief Complaint Date/Time DATE: 04/25/17 TIME: 02:12 Chief Complaint L ankle pain after "twisting it last night" HPI Patient is a 36-year-old female with PMHx of HTN who presents to the emergency department for concerns of left ankle pain 1 day. Patient states yesterday she was walking at the park in the grass when she twisted her ankle. She denies any falls or trauma. Patient rates the pain is localized to her left ankle and foot. Patient denies any radiation of the pain. Patient denies any previous injuries to the affected extremity. She does report pain with ambulating. Patient does report taking ibuprofen with some alleviation of symptoms. Denies any head injury, fevers, chills, nausea, vomiting, LOC. Patient denies any headache, chest pain, shortness of breath, left upper extremity pain, diaphoresis or LOC. Patient has not taken her BP medication yet , patient states that she typically takes BP medications prior to bed. ROS All systems reviewed and are negative except as per history of present illness. Medications Home Meds Active Scripts Ibuprofen* (Motrin*) 600 Mg Tab, 600 MG PO Q6, #20 TAB Prov:CHANTELL RODRIGUEZ PA-C 04/25/17 Saccharomyces Boulardii* (Florastor*) 250 Mg Cap, 500 MG PO BID, #24 CAP Prov:MEHRAN GARCIA 11/25/16 Ibuprofen* (Motrin*) 600 Mg Tab, 600 MG PO Q6H Y for PAIN AND OR ELEVATED TEMP, #30 TAB Prov:SESAR RICHARDSON NP 11/23/16 Reported Medications Lisinopril* (Lisinopril*) 10 Mg Tablet, 10 MG PO DAILY, #30 TAB 01/24/17 Allergies Allergies: Coded Allergies: No Known Allergy (Unverified , 01/24/17) PMhx/Soc History of Surgery: No Anesthesia Reaction: No Hx Neurological Disorder: No Hx Respiratory Disorders: No Hx Cardiac Disorders: No Hx Psychiatric Problems: No Hx Miscellaneous Medical Probl: No Hx Alcohol Use: No Hx Substance Use: No Hx Tobacco Use: No Smoking Status: Never smoker FmHx Family History: No diabetes Physical Exam Vitals Vital Signs Date Time Temp Pulse Resp B/P Pulse Ox O2 Delivery O2 Flow Rate FiO2 04/24/17 23:01 98.3 87 24 153/105 99 Physical Exam GENERAL: Well-developed, well-nourished male. Appears in no acute distress. HEAD: Normocephalic, atraumatic. EYES: Pupils are equally reactive bilaterally. EOMs grossly intact. No conjunctival erythema. ENT: Moist mucous membranes. No uvula deviation. No kissing tonsils. NECK: Supple. No meningismus. Normal range of motion of the neck. LUNG: Clear to auscultation bilaterally. No rhonchi, wheezing, rales or coarse breath sounds. HEART: Regular rate and rhythm. No murmurs, rubs or gallops. EXTREMITIES: Equal pulses bilaterally. No peripheral clubbing, cyanosis or edema. No unilateral leg swelling. NEUROLOGIC: Alert and oriented. Moving all four extremities without any difficulty. Normal speech. Steady gait. SKIN: Normal color. Warm and dry. No rashes or lesions. LEFT ANKLE: No deformity, erythema, ecchymosis. Swelling noted to the lateral aspect of the ankle and midfoot. Skin intact. Decreased range of motion secondary to swelling. Nontender palpation of the tibia-fibula. Tender to palpation of the ankle and midfoot. Nontender palpation of the fifth metatarsal. Sensation intact to light touch. Neurovascularly intact. (Able to plantarflex, dorsiflex, merly foot, invert foot, raise big toe.) 2+ DP and DT pulses. Results 24 hrs Current Medications Medications (Trade) Dose Ordered Sig/Octavio Route PRN Reason Start Time Stop Time Status Last Admin Dose Admin Ibuprofen (Motrin) 600 mg ONCE ONCE PO 04/25/17 00:00 04/25/17 00:01 DC 04/25/17 00:31 Procedures/MDM ED COURSE: The patient was stable throughout ED course. I kept the patient and/or family informed of laboratory and diagnostic imaging results throughout the ED course. DIAGNOSTIC IMAGING: Read by radiologist. Patient: ALBA FERGUSON : 1980 Age: 36 Sex: F MR #: [id number] DOS: 04/24/17 2343 Ordering MD: CHANTELL RODRIGUEZ PA-C Location: [facility] Room/Bed: PROCEDURE: Left ankle. CLINICAL INDICATION: Pain. TECHNIQUE: Three views including AP, lateral and oblique views of the left ankle were performed. COMPARISON: None. FINDINGS: There is no fracture, dislocation or bone destruction. The ankle mortise is within normal limits. Bone mineralization is within normal limits. There is no radiopaque foreign body or abnormal calcification. There are small plantar and dorsal calcaneal spurs. IMPRESSION: No evidence of fracture. Small calcaneal spurs. .Jayme De Leon MD, MD Date Time Electronically viewed and signed by .Jayme De Leon MD, MD on 04/25/2017 00:52 .T/ CC: CHANTELL RODRIGUEZ PA-C Patient: ALBA FERGUSON : 1980 Age: 36 Sex: F MR #: [id number] DOS: 04/24/17 2343 Ordering MD: CHANTELL RODRIGUEZ PA-C Location: [facility] Room/Bed: PROCEDURE: Left foot. CLINICAL INDICATION: Pain. TECHNIQUE: Three views including AP, lateral and oblique views of the left foot were obtained. The images were reviewed on a PACS workstation. COMPARISON: None. FINDINGS: There is no fracture, dislocation or bone destruction. The joint spaces are within normal limits. Bone mineralization is within normal limits. There is no radiopaque foreign body or abnormal calcification. There are small plantar and dorsal calcaneal spurs. IMPRESSION: No evidence of fracture. Small calcaneal spurs. .Jayme De Leon MD, MD Date Time Electronically viewed and signed by .Jayme De Leon MD, MD on 04/25/2017 00:51 .T/ CC: CHANTELL RODRIGUEZ PA-C PROCEDURES: SPLINT APPLICATION: The patient was verbally consented at bedside prior to splint application. Patient was explained the risks, benefits and alternatives to this procedure. The patient was neurovascularly intact prior to and status post application of the splint. The patient tolerated the procedure well with no complications. Splint type: leland wrap Extremity: left ankle/ foot Indication: sprain injury MEDICAL DECISION MAKING: This is a 36-year-old female presents with left ankle pain after twisting injury which occurred yesterday.. Vital signs were reviewed. Patient was afebrile. X-ray imaging of the left ankle and foot was unremarkable except for small calcaneal spurs. No findings of acute fracture dislocation. Patient was placed in an Leland wrap for comfort measurements. Given these findings, the patient's presentation is most consistent with ankle/foot sprain and calcaneal spurs. I have a much lower clinical concern for ankle dislocation, ankle fracture, tibia fracture, fibula fracture, tibial plateau fracture, Maisonneuve fracture, foot fracture, osteomyelitis, septic joint, gout, osteoarthritis, DVT , compartment syndrome or ankle sprain. At this time, unable to rule out any tendon and ligament injuries. PRESCRIPTIONS: Ibuprofen DISCHARGE: At this time, patient is stable for discharge and outpatient management. Patient was advised to take her blood pressure medication upon returning home. Patient given a copy of all imaging studies. RICE therapy and ROM exercises were advised to avoid stiffness. I have instructed the patient to follow-up with his/her primary care physician in 1-2 days. I have discussed with the patient the possibility of needing to see an injection specialist for further workup and imaging if the pain persists. I have instructed the patient to promptly return to the ER for any new or worsening symptoms including increased pain, swelling, redness, warmth or fever. The patient and/or family expressed understanding of and agreement with this plan. All questions were answered. Home care instructions were provided. Patients blood pressure was elevated (>120/80) but appears stable without evidence of hypertensive emergency, hypertensive urgency or end-organ failure. I had discussion with the patient about the risks of hypertension. I have advised the patient to follow up with his/her primary care physician for outpatient monitoring and treatment for hypertension in 2-3 days. I have instructed the patient to return to the ER for any new or worsening symptoms including chest pain, shortness of breath, headache, blurred vision, confusion, nausea, vomiting or LOC. Departure Diagnosis: Primary Impression: Ankle pain Laterality: unspecified laterality Chronicity: unspecified Qualified Code: M25.579 - Ankle pain, unspecified chronicity, unspecified laterality Patient Instructions: Sprain, Ankle, With X-Ray Referrals: [facility] (PCP) [facility] [place] Hours: Mon-Fri 9:00 AM - 5:00 PM Additional Instructions: Call your primary care doctor TOMORROW for an appointment during the next 1-2 days.See the doctor sooner or return here if your condition worsens before your appointment time. Unable to rule out any ligament injuries at this time. Patient advised to follow-up with primary care physician for referral to orthopedic specialty. Patient may need an MRI and outpatient basis. CHANTELL RODRIGUEZ PA-C Apr 25, 2017 02:20
[2017-04-25 02:27] VITALS: BP 144/100; PULSE 81; RESP 16
== END 2017-04-25 02:28 | disposition home or self-care (01) ==
LOC: FTE 22:56
DX: M25.572 Pain in left ankle and joints of left foot (principal)
CPT/HCPCS: 73610

== ENCOUNTER 2017-07-13 22:53 | Emergency (ER) | payer OTHER ==
[~2017-07-13] VITALS: Ht 170.2 cm; Wt 122.0 kg
[2017-07-13 23:09] VITALS: Ht 170.2 cm; Wt 122.0 kg
--- NOTE | 2017-07-14 02:30 | ERA ---
ER Documentation Chief Complaint Date/Time DATE: 07/14/17 TIME: 02:28 Chief Complaint taking Nitrofurantoin x days then she has rashes now HPI 36-year-old female presenting with the chief complaints of rash status post nitrofurantoin usage. States that it became difficult to breathe. Reaction occurred 1 day ago. No current symptoms. States that she still has dysuria. No hematuria. Denies any back pain. No alleviating factors no medication used to relieve the symptoms. 1 month status post gastric sleeve surgery. Patient has no other complaints and describes no other associated manifestations. Nursing notes have been reviewed and are consistent with history given. ROS All systems reviewed and are negative except as per history of present illness. Medications Home Meds Active Scripts Ciprofloxacin Hcl* (Ciprofloxacin Hcl*) 500 Mg Tablet, 500 MG PO BID for 5 Days , TAB Prov:MARYAM ALBA PA-C 07/14/17 Ibuprofen* (Motrin*) 600 Mg Tab, 600 MG PO Q6, #20 TAB Prov:CHANTELL RODRIGUEZ PA-C 04/25/17 Saccharomyces Boulardii* (Florastor*) 250 Mg Cap, 500 MG PO BID, #24 CAP Prov:MEHRAN GARCIA 11/25/16 Ibuprofen* (Motrin*) 600 Mg Tab, 600 MG PO Q6H Y for PAIN AND OR ELEVATED TEMP, #30 TAB Prov:SESAR RICHARDSON NP 11/23/16 Reported Medications Lisinopril* (Lisinopril*) 10 Mg Tablet, 10 MG PO DAILY, #30 TAB 01/24/17 Allergies Allergies: Coded Allergies: No Known Allergy (Unverified , 01/24/17) PMhx/Soc History of Surgery: No Anesthesia Reaction: No Hx Neurological Disorder: No Hx Respiratory Disorders: No Hx Cardiac Disorders: No Hx Psychiatric Problems: No Hx Miscellaneous Medical Probl: No Hx Alcohol Use: No Hx Substance Use: No Hx Tobacco Use: No Physical Exam Vitals Physical Exam Const: Morbidly obese 36-year-old female no acute distress Head: Atraumatic Eyes: Normal Conjunctiva ENT: Normal External Ears, Nose and Mouth. Neck: Full range of motion..~ No meningismus. Resp: Clear to auscultation bilaterally Cardio: Regular rate and rhythm, no murmurs Abd: Mild suprapubic tenderness.Soft, non tender, non distended. Normal bowel sounds Skin: No petechiae or rashes Back: No midline or flank tenderness Ext: No cyanosis, or edema Neur: Awake and alert Psych: Normal Mood and Affect Results 24 hrs Laboratory Tests Test 07/14/17 03:13 Bedside Urine pH (LAB) 5.5 Bedside Urine Protein (LAB) 2+ Bedside Urine Glucose (UA) Negative Bedside Urine Ketones (LAB) 2+ Bedside Urine Blood Trace-lysed Bedside Urine Nitrite (LAB) Negative Bedside Urine Leukocyte Esterase (L 1+ Procedures/MDM 36-year-old female presenting one day status post rash after nitrofurantoin use. Patient has had no similar reactions in the past. Has not taken Macrobid in the past. Physical exam revealed mild suprapubic tenderness. No CVA tenderness. No abdominal tenderness. Urine negative. Urinalysis was obtained and revealed the followin+ leukocyte esterase with hematuria. Findings are most consistent with cystitis with hematuria. Patient will be treated with antibiotics. Stable for home treatment. No suspicion for systemic involvement, pyelonephritis, PID, or other serious bacterial infection. I have spoke with the patient regarding their condition and future management. They have verbally responded that they understand their status and treatment plan. The patients vitals are stable, and their current condition is appropriate for discharge. The patient will be given discharge instructions with return precautions. Departure Diagnosis: Primary Impression: Rash and other nonspecific skin eruption Additional Impression: Cystitis Condition: Stable Additional Instructions: Follow up with your PCP within the next 1-3 days for a more thorough evaluation and a possible referral to a specialist. Return the the emergency department immediately if symptoms worsen or change. If you have any questions regarding medications, ask your pharmacist or us before you leave. If any adverse reactions occur while taking your medications, discontinue the treatment and return to the emergency department immediately. Take your medications as directed, and complete the entire course of treatment. MARYAM ALBA PA-C Jul 14, 2017 02:30 MARYAM ALBA PA-C Jul 14, 2017 02:30
[2017-07-14 03:05] LABS: URINE BLOOD (Dip) POC Trace-lysed (NEGATIVE)
[2017-07-14] MEDS ORDERED: CIPR500T4 PO (04:21)
== END 2017-07-14 04:35 | disposition home or self-care (01) ==
LOC: FTE 22:53
DX: R21 Rash and other nonspecific skin eruption (principal); N30.90 Cystitis, unspecified without hematuria
CPT/HCPCS: 81003; Z7502; 99283

== ENCOUNTER 2017-08-24 05:56 | Emergency (ER) | payer OTHER ==
[~2017-08-24] VITALS: Ht 162.6 cm; Wt 96.0 kg
[~2017-08-24 05:56] MED LIST changes: +CIPR500T4 PO
[2017-08-24 06:18] VITALS: Ht 162.6 cm; Wt 96.0 kg
[2017-08-24] MEDS ORDERED: IBUPROFEN 800 MG TAB PO ONE (07:00)
--- NOTE | 2017-08-24 07:24 | ERD ---
ER Documentation Chief Complaint Chief Complaint fever last night,sore throat,left sharp chest pain when coughing HPI This is a 36-year-old female who presents emergency department today complaining of fever last night, sore throat, chest pain that is worse with coughing and a headache. States that she returned from [facility] on 14 August. States she has not taken any medication. States her mother had similar symptoms. States her symptoms started 4 days ago. ROS All systems reviewed and are negative except as per history of present illness. Medications Home Meds Active Scripts Oseltamivir Phosphate* (Tamiflu*) 75 Mg Capsule, 75 MG PO BID for 5 Days, CAP Prov:LOBO JAMESC 08/24/17 Guaifenesin-Dextromethorphan* (Robitussin* DM) 100MG/10MG/5ML Syrup, 10 ML PO Q6H Y for COUGH for 5 Days, ML Prov:LOBO JAMESC 08/24/17 Acetaminophen* (Tylophen*) 500 Mg Capsule, 1 CAP PO Q6H Y for PAIN AND OR ELEVATED TEMP, #30 CAP Prov:LOBO JAMESC 08/24/17 Ibuprofen* (Motrin*) 600 Mg Tab, 600 MG PO Q6, #30 TAB Prov:LOBO JAMESC 08/24/17 Ciprofloxacin Hcl* (Ciprofloxacin Hcl*) 500 Mg Tablet, 500 MG PO BID for 5 Days , TAB Prov:MARYAM ALBAC 07/14/17 Ibuprofen* (Motrin*) 600 Mg Tab, 600 MG PO Q6, #20 TAB Prov:CHANTELL RODRIGUEZC 04/25/17 Saccharomyces Boulardii* (Florastor*) 250 Mg Cap, 500 MG PO BID, #24 CAP Prov:MEHRAN GARCIA 11/25/16 Ibuprofen* (Motrin*) 600 Mg Tab, 600 MG PO Q6H Y for PAIN AND OR ELEVATED TEMP, #30 TAB Prov:SESAR RICHARDSON NP 11/23/16 Reported Medications Lisinopril* (Lisinopril*) 10 Mg Tablet, 10 MG PO DAILY, #30 TAB 01/24/17 Allergies Allergies: Coded Allergies: nitrofurantoin (Verified Allergy, Unknown, 08/24/17) PMhx/Soc Medical and Surgical Hx: pt denies Medical Hx, pt denies Surgical Hx History of Surgery: No Anesthesia Reaction: No Hx Neurological Disorder: No Hx Respiratory Disorders: No Hx Cardiac Disorders: No Hx Psychiatric Problems: No Hx Miscellaneous Medical Probl: No Hx Alcohol Use: No Hx Substance Use: No Hx Tobacco Use: No Physical Exam Vitals Vital Signs Date Time Temp Pulse Resp B/P Pulse Ox O2 Delivery O2 Flow Rate FiO2 08/24/17 06:18 98.1 80 18 141/89 96 Physical Exam Const: obese, NAD Head: Atraumatic Eyes: Normal Conjunctiva ENT: Ears TMs normal. Nose no drainage. Throat erythema no exudate no vesicles Neck: Full range of motion..~ No meningismus. Resp: Clear to auscultation bilaterally no absent breath sounds. No wheezing. Cardio: Regular rate and rhythm, no murmurs Abd: Soft, non tender, non distended. Normal bowel sounds Skin: No petechiae or rashes Back: No midline or flank tenderness Ext: No cyanosis, or edema Neur: Awake and alert Psych: Normal Mood and Affect Results 24 hrs Current Medications Medications (Trade) Dose Ordered Sig/Octavio Route PRN Reason Start Time Stop Time Status Last Admin Dose Admin Ibuprofen (Motrin) 800 mg ONCE ONCE PO 08/24/17 07:00 08/24/17 07:01 DC 08/24/17 07:02 DIAGNOSTIC IMAGING REPORT Patient: ALBA FERGUSON : 1980 Age: 36 Sex: F MR #: [id number] DOS: 08/24/17 Ordering MD: LOBO JAMES PA-C Location: E Room/Bed: PROCEDURE: XR Chest. CLINICAL INDICATION: Cough and shortness of breath rebekah TECHNIQUE: Single frontal view. COMPARISON: 01/25/2017. FINDINGS: There is mild linear atelectasis at the left lung base. The lungs are otherwise clear. The heart size is normal. There is no pleural effusion. There is no pneumothorax. IMPRESSION: 1. Mild linear atelectasis at the left lung base. 2. Otherwise normal chest radiograph. RPTAT: QQ .Kirill Payton MD, Date Time Electronically viewed and signed by .Kirill Payton MD, MD on 08/24/2017 07:52 .R/ CC: LOBO JAMES PA-C RUN DATE: 08/24/17 [facility] PAGE 1 RUN TIME: [id number] [place] [address] Romulo Barroso M.D. [employer] Administrator ALFONSO#: [id number] Name: ALBA FERGUSON Age/Sex: 36/F Attend Dr: HUNG NARANJO MD Acct: [id number] MR# : [id number] : 1980 Location: [facility] Admit: 08/24/17 Specimen: [id number] Status: Complete John: 08/24/17 Rcvd: 08/24 Source: DE[facility] Campos Descrip: Procedure Result Microbiology INFLUENZA A & B BY EIA Final INFLU A&B BY EIA INFLUENZA A NEGATIVE (Ref Range Neg) INFLUENZA B POSITIVE (Ref Range Neg) PHONED TO TOVA MEYERS, AT 0741, 08/24/17, HN. ................................................................................ ............ Flags: Critical Hi = *H Critical Lo = *L Microbiology Abnormal = * Abnormal Hi = H Abnormal Lo = L Blood Bank Abnormal = * Susceptability Flags: S = Sensitive R = Resistant I = Intermediate END OF REPORT Procedures/MDM This is a 36-year-old female presents to the emergency department today with URI and influenza-like symptoms however given patient's complaints of chest pain with coughing I did obtain a chest x-ray and EKG. Chest x-ray shows mild linear atelectasis otherwise normal chest x-ray. There is no pleural effusion or pneumothorax. Low suspicion for pneumonia, PE, abscess, fusion, pneumothorax EKG read and interpreted by Dr. Naranjo. [address] elevation. No QT prolongation. Normal sinus rhythm. Low suspicion for acute GA, PE, pericarditis, Influenza A is negative Influenza B is POSITIVE She was given Motrin here in the emergency department. She will begin a prescription for Tylenol, Motrin, and Robitussin. Discussed with the patient given her Tamiflu as it is outside the 48 hour window and she has had the symptoms for 4 days. Patient stated that she would like a prescription. I did explain the risks and benefits and patient was requesting the medication. Symptoms at this time is consistent with influenza I have low suspicion for strep pharyngitis, peritonsillar abscess, retropharyngeal abscess, otitis media , PNA, sinusitis, abscess, meningitis, sepsis, or other acute infectious bacterial process. At this time the patient is stable for discharge and outpatient management. They should follow up with their PCP in the next 1-2. They may return to the emergency department sooner if symptoms persist or worsen. Patient understood and agreed with the plan. Departure Diagnosis: Primary Impression: Influenza Condition: LOBO Hammer PA-C Aug 24, 2017 07:24
--- NOTE | 2017-08-24 07:52 | RADRPT ---
PROCEDURE: XR Chest. CLINICAL INDICATION: Cough and shortness of breath rebekah TECHNIQUE: Single frontal view. COMPARISON: 01/25/2017. FINDINGS: There is mild linear atelectasis at the left lung base. The lungs are otherwise clear. The heart size is normal. There is no pleural effusion. There is no pneumothorax. IMPRESSION: 1. Mild linear atelectasis at the left lung base. 2. Otherwise normal chest radiograph. RPTAT: QQ .Kirill Payton MD, MD Date Time Electronically viewed and signed by .Kirill Payton MD, MD on 08/24/2017 07:52 .R/
[2017-08-24] MEDS ORDERED: IBUP-1542 PO (08:27)
[2017-08-24] MEDS ORDERED: UDROBDM PO (08:27)
[2017-08-24] MEDS ORDERED: ACET500C5 PO (08:27)
[2017-08-24] MEDS ORDERED: OSLT75C PO (08:28)
== END 2017-08-24 08:35 | disposition home or self-care (01) ==
LOC: FTE 05:56
DX: J10.1 Influenza due to other identified influenza virus with other respiratory manifestations (principal); R07.9 Chest pain, unspecified
CPT/HCPCS: 71010; 87400; 93005; Z7502; Z7610

== ENCOUNTER 2018-11-03 07:58 | Day surgery (SDC) | payer OTHER ==
[2018-11-02 17:00] VITALS: BMI 32.7
[2018-11-03] VITALS (12 sets, daily range): BP systolic 109–134; BP diastolic 75–90; PULSE 50–56; RESP 14–24; Ht 167.6 cm; Wt 91.4 kg
[~2018-11-03] VITALS: Ht 167.6 cm; Wt 91.4 kg
[~2018-11-03 07:58] MED LIST changes: -CIPR500T4 PO; -IBUP-1542 PO; -SACC250C PO
[2018-11-03] MEDS ORDERED: LISI-471 PO (08:37)
[2018-11-03] MEDS ORDERED: FOLI-49 PO (08:38)
[2018-11-03] MEDS ORDERED: CALC500T91 PO (08:38)
[2018-11-03] MEDS ORDERED: PNV11TAB PO (08:38)
--- NOTE | 2018-11-03 09:52 | PREAC ---
Date/Time of Note Date/Time of Note DATE: 11/03/18 TIME: 09:52 Anesthesia Eval and Record Evaluation Time Pre-Procedure Interview DATE: 11/03/18 TIME: 09:52 Age 37 Sex female NPO: 8 hrs Preoperative diagnosis Right 5th hammertoe Planned procedure Hammertoe correction Past Medical History Past Medical History: Includes Cardio: HTN GI: Obesity Surgery & Anesthesia Issues No known issue Meds Anticoagulation: No Beta Elvie within 24 hr: No Reason Beta Elvie not given: Pt. not on B-Elvie Reported Medications Calcium Carbonate ([id number]) 500 Mg Tablet, 500 MG PO DAILY, TAB 11/03/18 Folic Acid* (Folic Acid*) 1 Mg Tablet, 1 MG PO DAILY, TAB 11/03/18 [id number] Adzohqxd-OR-IPT ( ) 1 Each Tablet, 1 TAB PO DAILY, TAB 11/03/18 Lisinopril* (Lisinopril*) 20 Mg Tablet, 20 MG PO DAILY, #30 TAB 11/03/18 Discontinued Reported Medications Lisinopril* (Lisinopril*) 10 Mg Tablet, 10 MG PO DAILY, #30 TAB 01/24/17 Discontinued Scripts Oseltamivir Phosphate* (Tamiflu*) 75 Mg Capsule, 75 MG PO BID for 5 Days, CAP Prov:LOBO JAMES PA-C 08/24/17 Guaifenesin-Dextromethorphan* (Robitussin* DM) 100MG/10MG/5ML Syrup, 10 ML PO Q6H PRN for COUGH for 5 Days, ML Prov:LOBO JAMES PA-C 08/24/17 Acetaminophen* (Tylophen*) 500 Mg Capsule, 1 CAP PO Q6H PRN for PAIN AND OR ELEVATED TEMP, #30 CAP Prov:LOBO JAMES PA-C 08/24/17 Ibuprofen* (Motrin*) 600 Mg Tab, 600 MG PO Q6, #30 TAB Prov:LOBO JAMES PA-C 08/24/17 Ciprofloxacin Hcl* (Ciprofloxacin Hcl*) 500 Mg Tablet, 500 MG PO BID for 5 Days, TAB Prov:MARYAM ALBA PA-C 07/14/17 Ibuprofen* (Motrin*) 600 Mg Tab, 600 MG PO Q6, #20 TAB Prov:CHANTELL RODRIGUEZ PA-C 04/25/17 Saccharomyces Boulardii* (Florastor*) 250 Mg Cap, 500 MG PO BID, #24 CAP Prov:RADHAMEHRAN 11/25/16 Ibuprofen* (Motrin*) 600 Mg Tab, 600 MG PO Q6H PRN for PAIN AND OR ELEVATED TEMP, #30 TAB Prov:SESAR RICHARDSON NP 11/23/16 Meds reviewed: Yes Allergies Coded Allergies: nitrofurantoin (Verified Allergy, Unknown, 08/24/17) Allergies Reviewed: Yes Labs/Studies Labs Reviewed: Reviewed by anesthesiologist test: Negative Pre-procedure Exam Last vitals Vital Signs Date Temp Pulse Resp B/P (MAP) Pulse Ox O2 O2 Flow FiO2 Time Delivery Rate 11/03/18 98.3 16 134/87 96 Room Air 09:12 (103) Airway: Adequate mouth opening Mallampati: Mallampati II Teeth: Normal Lung: Normal Heart: Normal ASA Physical Status ASA physical status: 2 Emergency: None Planned Anesthetic General/MAC: LMA Planned Pain Management Parenteral pain med Pre-operative Attestations Prior to commencing anesthesia and surgery, the patient was re-evaluated, there was verification of: *The patient's identity *The results of appropriate recent lab work and preoperative vital signs *The above evaluation not changing prior to induction *Anesthetic plan, risk benefits, alternative and complications discussed with patient/family; questions answered; patient/family understands, accepts and wishes to proceed. HARLEY SPENCER MD Nov 03, 2018 09:52
--- NOTE | 2018-11-03 09:54 | HPN ---
Date/Time of Note Date/Time of Note DATE: 11/03/18 TIME: 09:53 Interval H&P Admission Note Pt. seen H&P reviewed: No system changes JAYLEN SUN DPM Nov 03, 2018 09:54
[2018-11-03] MEDS ORDERED: PROPOFOL 20 ML ONE (10:03)
[2018-11-03] MEDS ORDERED: LIDOCAINE 2% (SDV) 5 ML INJ ONE (10:03)
[2018-11-03] MEDS ORDERED: ONDANSETRON 4 MG INJ ONE (10:03)
[2018-11-03] MEDS ORDERED: METOCLOPRAMIDE 10 MG INJ ONE (10:03)
[2018-11-03] MEDS ORDERED: BUPIVACAINE 0.5% (SDV) 30 ML INJ ONE (10:29)
[2018-11-03] MEDS ORDERED: POVIDONE IODINE 10% 28.4 GM OINT ONE (10:29)
[2018-11-03] MEDS ORDERED: hydrALAzine 20 MG INJ IV PRN (10:30)
[2018-11-03] MEDS ORDERED: DIPHENHYDRAMINE 50 MG INJ IV PRN (10:30)
[2018-11-03] MEDS ORDERED: OXYCODONE/ACETAMINOPHEN (5/325) TAB PO PRN ×2 (10:30)
[2018-11-03] MEDS ORDERED: METOCLOPRAMIDE 10 MG INJ IV PRN (10:30)
[2018-11-03] MEDS ORDERED: EPHEDrine SULFATE 50 MG/5 ML SYG IV PRN (10:30)
[2018-11-03] MEDS ORDERED: HYDROmorphONE 1 MG/5 ML IV SYRINGE IV PRN ×3 (10:30)
[2018-11-03] MEDS ORDERED: FENTAnyl 50 MCG/ML VIAL IV PRN ×3 (10:30)
[2018-11-03] MEDS ORDERED: LABETALOL HCL 20MG INJ IV PRN (10:30)
[2018-11-03] MEDS ORDERED: ONDANSETRON 4 MG INJ IV PRN (10:30)
[2018-11-03] MEDS ORDERED: MIDAZOLAM 1 MG/ML 2 ML INJ IV PRN (10:30)
--- NOTE | 2018-11-03 10:57 | SIPON ---
Date/Time of Note Date/Time of Note DATE: 11/03/18 TIME: 10:55 Operative Report Preoperative Diagnosis Hammertoe fifth right Postoperative Diagnosis Hammertoe correction fifth right Operation/Procedure Performed Hammertoe correction fifth right Surgeon see signature line licensed physical therapist assistant None Anesthesia: general Estimated blood loss: minimal (Specimen bone) Transfusion Required none Specimen Specimen bone Grafts/Implants none Complications none JAYLEN SUN DPM Nov 03, 2018 10:57
[2018-11-03] MEDS: MEPERIDINE 25 MG INJ IV PRN ×2 (11:21→11:56)
--- NOTE | 2018-11-03 12:35 | PREOPHP ---
DATE OF ADMISSION: 11/03/2018 HISTORY OF PRESENT ILLNESS: The patient is being admitted to the hospital for elective foot surgery, palliative treatment unsuccessful. Patient has been explained surgery complications, alternatives and elected to have elective foot surgery. The patient is having pain on her 5th digit on the right foot. ALLERGIES: THE PATIENT IS ALLERGIC TO NITROFURANTOIN. MEDICATIONS: 1. Lisinopril. 2. B12. 3. Folic acid. 4. Vitamin D. REVIEW OF SYSTEMS: Negative heart, lung, liver, kidney, thyroid. Negative diabetes. SOCIAL HISTORY: Negative smoking and alcohol. See any other pertinent history from [facility]. PHYSICAL EXAMINATION: LOWER EXTREMITY: Shows a DP and PT equal and regular. NEUROLOGICAL: Negative for pathology. DERMATOLOGICAL: HD fifth right foot and musculoskeletal show hammertoe, fifth, right foot. FINAL DIAGNOSIS: Hammertoe, fifth, right foot. Dictated By: JAYLEN THOMAS/ELIAS Conf#: [id number] DID#: [id number] LEONARDO
--- NOTE | 2018-11-03 12:37 | PAC ---
Date/Time of Note Date/Time of Note DATE: 11/03/18 TIME: 12:37 Post-Anesthesia Notes Post-Anesthesia Note Last documented vital signs Vital Signs Date Temp Pulse Resp B/P (MAP) Pulse Ox O2 O2 Flow FiO2 Time Delivery Rate 11/03/18 52 19 109/75 97 Room Air 11:42 (86) 11/03/18 98.9 11:25 Activity: WNL Respiratory function: WNL Cardiovascular function: WNL Mental status: Baseline Pain reasonably controlled: Yes Hydration appropriate: Yes Nausea/Vomiting absent: Yes HARLEY SPENCER MD Nov 03, 2018 12:37
--- NOTE | 2018-11-03 13:33 | OPR ---
DATE OF OPERATION: 11/03/2018 PREOPERATIVE DIAGNOSIS: Hammertoe, fifth right foot. POSTOPERATIVE DIAGNOSIS: Hammertoe, fifth right foot. OPERATION PERFORMED: Hammertoe correction, fifth right foot. SURGEON: Jaylen Sanchez DPM DESCRIPTION OF PROCEDURE: The patient was brought to the surgical suite, placed in the supine position. The patient was under general anesthesia and patient had sterile prep and drape. Findings were consistent with the pre and postoperative diagnosis. The first incision was a dorsal longitudinal incision over the fifth digit. Using sharp and blunt dissection, the incision was carried deep. The head of the proximal phalanx was freed of its attachment and resected at its surgical neck. The lateral aspect of the intermediate phalanx was rasped smooth and the area was cleansed. The preoperative condition having been relieved, the area was then subcutaneously coaptated using 3-0 Vicryl and the skin was coaptated using 5-0 nylon. The area was injected using 0.5% Marcaine to prolong anesthesia and a dressing of 1/2-inch Steri-Strips, Betadine ointment, 4 x 4's impregnated with Betadine solution and Yissel with an outer layer of Coban made into a semi-compressive dressing. The patient tolerated surgery well, was returned to recovery room in satisfactory condition. There was minimum blood loss and no complications. Dictated By: JAYLEN THOMAS/ELIAS Conf#: [id number] DID#: [id number] MTDD
== END 2018-11-03 12:40 | disposition home or self-care (01) ==
LOC: SDS 07:58
PROVIDERS: ATTEND Podiatrist
DX: M20.41 Other hammer toe(s) (acquired), right foot (principal); I10 Essential (primary) hypertension
CPT/HCPCS: 28285; J2175; J2405; J2765; Z7610